=== PATIENT | female | born 1935 | race Caucasian/White ===

== ENCOUNTER 2016-03-24 15:03 | Emergency (ER) | payer MEDICARE, BC ==
[2016-03-24 15:22] VITALS: BP 109/60
[2016-03-24 15:31] LABS: Hematocrit 36 % (35-47); Mean Corpuscular HGB Conc 33 g/dl (31-36); Mean Corpuscular Hemoglobin 32 pg (27-31); Mean Corpuscular Volume 97 fL (80-97); Mean Platelet Volume 7 um3 (7.4-10.4); Red Blood Count 3.77 10^6/ul (4.0-5.4); Red Cell Distribution Width 14 % (10.5-15)
[2016-03-24 15:49] LABS: Troponin I 0.01 ng/mL (<0.04)
[2016-03-24 15:51] LABS: Albumin 3.7 g/dL (3.2-5.2); BUN/Creatinine Ratio 14.9 (8-20); EGFR African American 54.9 (>60); EGFR Non-African American 42.7 (>60); Globulin 2.8 g/dL (2-4); Potassium 3.8 mmol/L (3.5-5.0); Total Bilirubin 0.4 mg/dL (0.2-1.0); Total Protein 6.5 g/dL (6.4-8.9)
--- NOTE | 2016-03-24 15:51 | RAD ---
INDICATION: Chest pain. COMPARISON: Comparison is made with a prior chest x-ray study from May 01, 2015. TECHNIQUE: A portable view of the chest was obtained. FINDINGS: The heart appears within normal limits for this portable exam. There is a large retrocardiac density partially air-filled which is unchanged most consistent with a large hiatal hernia. The lungs are clear. No pleural effusion is seen. IMPRESSION: 1. CLEAR LUNGS. 2. LARGE HIATAL HERNIA, UNCHANGED.
[2016-03-24 16:17] LABS: TSH (Thyroid Stimulating Horm) 2.13 mcIU/mL (0.34-5.60)
[2016-03-24 18:51] LABS: Urine Bacteria Absent (Absent); Urine Bilirubin Negative (Negative); Urine Glucose Negative (Negative); Urine Nitrite Negative (Negative)
--- NOTE | 2016-03-24 19:27 | ED ---
Dona Bal Rebecca, scribed for Sloan Sparrow MD on 03/24/16 at 1520 . HPI Chest Pain - HPI Summary HPI Summary: Pt is an 80 y/o F BIBA who presents to ED c/o CP. Pain began suddenly at 1420 after eating lunch. Pain was throughout the upper, mid and lower sternum with radiation to the epigastric region of the abd. Pain lasted 1 hour and was characterized as tightness, currently completely resolved. Sx aggravated by nothing, alleviated by Tums. Additionally c/o belching and vomiting. All sx are resolved. Denies dizziness, diaphoresis. PMHx GERD - History of Current Complaint Time Seen by Provider: 03/24/16 15:11 Hx Obtained From: Patient Onset/Duration: Started Hours Ago Time of Onset: 14:20 Timing: Constant Initial Severity: Moderate Current Severity: None Pain Intensity: 0 Pain Scale Used: 0-10 Numeric Chest Pain Location: Mid Sternal, Upper Sternal, Lower Sternal Chest Pain Radiates: Yes Chest Pain Radiates To:: Epigastric Character: Tightness Aggravating Factor(s): Nothing Alleviating Factor(s): OTC Meds - Tums Associated Signs and Symptoms: Positive: Vomiting, Other: - Belching. Negative : Dizziness, Diaphoresis - Allergy/Home Medications Allergies/Adverse Reactions: Allergies Allergy/AdvReac Type Severity Reaction Status Date / Time Sulfamethoxazole Allergy Severe Hives Verified 03/14/15 10:20 w/Trimethoprim [From Septra] Montelukast [From [facility]] Allergy Unknown Unknown Verified 03/14/15 10:20 Reaction Details PMH/Surg Hx/FS Hx/Imm Hx Endocrine/Hematology History: Reports: Hx Thyroid Disease - HYPO Denies: Hx Diabetes Cardiovascular History: Reports: Hx Hypercholesterolemia Denies: Hx Hypertension, Hx Pacemaker/ICD Respiratory History: Reports: Hx Asthma Denies: Hx Chronic Obstructive Pulmonary Disease (COPD), Other Respiratory Problems/Disorders GI History: Reports: Hx Gastroesophageal Reflux Disease, Hx Hiatal Hernia, Hx Ulcer - gerd History: Reports: Hx Kidney Stones - X1 10 YRS AGO Denies: Hx Renal Disease Musculoskeletal History: Reports: Hx Arthritis - RA, Hx Osteoporosis Sensory History: Reports: Hx Contacts or Glasses - GLASSES, Hx Hearing Aid - LT EAR Opthamlomology History: Reports: Hx Contacts or Glasses - GLASSES Psychiatric History: Reports: Hx Depression Denies: Hx Panic Disorder - Cancer History Hx Chemotherapy: No Hx Radiation Therapy: No - Surgical History Surgery Procedure, Year, and Place: Sinus Surgery 2012. LEFT Wrist/thumb Surgery. Tonsillectomy 1944 Hx Anesthesia Reactions: No Infectious Disease History: Denies: Hx Clostridium Difficile, Hx Hepatitis, Hx Human Immunodeficiency Virus (HIV), Hx of Known/Suspected MRSA, Hx Shingles, Hx Tuberculosis - Family History Known Family History: Positive: Cardiac Disease - mother, Diabetes - Social History Alcohol Use: None Hx Substance Use: No Substance Use Type: Reports: None Hx Tobacco Use: No Smoking Status (MU): Never Smoked Tobacco Review of Systems Negative: Skin Diaphoresis Positive: Chest Pain - uper, mid and lower sternal with radiation into the epigastrum - resolved Positive: Vomiting - resolved, Other - Belching - resolved Neurological: Other - Denies dizziness All Other Systems Reviewed And Are Negative: Yes Physical Exam - Summary Physical Exam Summary: VITAL SIGNS: Reviewed. GENERAL: Patient is a well developed and nourished female who is lying comfortable in the stretcher. Patient is not in any acute respiratory distress. HEAD AND FACE: No signs of trauma. No ecchymosis, hematomas or skull depressions. No sinus tenderness. EYES: PERRLA, EOMI x 2, No injected conjunctiva, no nystagmus. EARS: Hearing grossly intact. Ear canals and tympanic membranes are within normal limits. MOUTH: Oropharynx within normal limits. NECK: Supple, trachea is midline, no adenopathy, no JVD, no carotid bruit, no c- spine tenderness, neck with full ROM. CHEST: Symmetric, no tenderness at palpation LUNGS: Clear to auscultation bilaterally. No wheezing or crackles. CVS: Regular rate and rhythm, S1 and S2 present, no murmurs or gallops appreciated. ABDOMEN: Soft, non-tender. No signs of distention. No rebound no guarding, and no masses palpated. Bowel sounds are normal. EXTREMITIES: FROM in all major joints, no edema, no cyanosis or clubbing. NEURO: Alert and oriented x 3. No acute neurological deficits. Speech is normal and follows commands. SKIN: Dry and warm Triage Information Reviewed: Yes Vital Signs On Initial Exam: Initial Vitals Temp Pulse Resp BP Pulse Ox 97.8 F 70 18 109/60 99 03/24/16 15:18 03/24/16 15:18 03/24/16 15:18 03/24/16 15:18 03/24/16 15:18 Vital Signs Reviewed: Yes Diagnostics - Vital Signs Vital Signs Temp Pulse Resp BP Pulse Ox 03/24/16 15:18 97.8 F 70 18 109/60 99 - Laboratory Lab Results: Lab Results 03/24/16 03/24/16 03/24/16 Range/Units 15:10 15:10 15:10 WBC 7.0 (3.5-10.8) 10^3/ul RBC 3.77 L (4.0-5.4) 10^6/ul Hgb 12.0 (12.0-16.0) g/dl Hct 36 (35-47) % MCV 97 (80-97) fL MCH 32 H (27-31) pg MCHC 33 (31-36) g/dl RDW 14 (10.5-15) % Plt Count 253 (150-450) 10^3/ul MPV 7 L (7.4-10.4) um3 Neut % (Auto) 75.8 (38-83) % Lymph % (Auto) 11.2 L (25-47) % Buchanan % (Auto) 5.9 (1-9) % Eos % (Auto) 5.9 (0-6) % Baso % (Auto) 1.2 (0-2) % Absolute Neuts (auto) 5.3 (1.5-7.7) 10^3/ul Absolute Lymphs (auto) 0.8 L (1.0-4.8) 10^3/ul Absolute Monos (auto) 0.4 (0-0.8) 10^3/ul Absolute Eos (auto) 0.4 (0-0.6) 10^3/ul Absolute Basos (auto) 0.1 (0-0.2) 10^3/ul Absolute Nucleated RBC 0 10^3/ul Nucleated RBC % 0 Sodium 136 (133-145) mmol/L Potassium 3.8 (3.5-5.0) mmol/L Chloride 103 (101-111) mmol/L Carbon Dioxide 25 (22-32) mmol/L Anion Gap 8 (2-11) mmol/L BUN 18 (6-24) mg/dL Creatinine 1.21 H (0.51-0.95) mg/dL Est GFR ( Amer) 54.9 (>60) Est GFR (Non-Af Amer) 42.7 (>60) BUN/Creatinine Ratio 14.9 (8-20) Glucose 135 H (70-100) mg/dL Lactic Acid 1.2 (0.5-2.0) mmol/L Calcium 10.0 (8.6-10.3) mg/dL Total Bilirubin 0.40 (0.2-1.0) mg/dL AST 27 (13-39) U/L ALT 11 (7-52) U/L Alkaline Phosphatase 64 (34-104) U/L CK-MB (CK-2) 3.1 (0.6-6.3) ng/mL Troponin I 0.01 (<0.04) ng/mL B-Natriuretic Peptide ( - 100) pg/mL Total Protein 6.5 (6.4-8.9) g/dL Albumin 3.7 (3.2-5.2) g/dL Globulin 2.8 (2-4) g/dL Albumin/Globulin Ratio 1.3 (1-3) TSH 2.13 (0.34-5.60) mcIU/mL 03/24/16 Range/Units 15:10 WBC (3.5-10.8) 10^3/ul RBC (4.0-5.4) 10^6/ul Hgb (12.0-16.0) g/dl Hct (35-47) % MCV (80-97) fL MCH (27-31) pg MCHC (31-36) g/dl RDW (10.5-15) % Plt Count (150-450) 10^3/ul MPV (7.4-10.4) um3 Neut % (Auto) (38-83) % Lymph % (Auto) (25-47) % Buchanan % (Auto) (1-9) % Eos % (Auto) (0-6) % Baso % (Auto) (0-2) % Absolute Neuts (auto) (1.5-7.7) 10^3/ul Absolute Lymphs (auto) (1.0-4.8) 10^3/ul Absolute Monos (auto) (0-0.8) 10^3/ul Absolute Eos (auto) (0-0.6) 10^3/ul Absolute Basos (auto) (0-0.2) 10^3/ul Absolute Nucleated RBC 10^3/ul Nucleated RBC % Sodium (133-145) mmol/L Potassium (3.5-5.0) mmol/L Chloride (101-111) mmol/L Carbon Dioxide (22-32) mmol/L Anion Gap (2-11) mmol/L BUN (6-24) mg/dL Creatinine (0.51-0.95) mg/dL Est GFR ( Amer) (>60) Est GFR (Non-Af Amer) (>60) BUN/Creatinine Ratio (8-20) Glucose (70-100) mg/dL Lactic Acid (0.5-2.0) mmol/L Calcium (8.6-10.3) mg/dL Total Bilirubin (0.2-1.0) mg/dL AST (13-39) U/L ALT (7-52) U/L Alkaline Phosphatase (34-104) U/L CK-MB (CK-2) (0.6-6.3) ng/mL Troponin I (<0.04) ng/mL B-Natriuretic Peptide 136 H ( - 100) pg/mL Total Protein (6.4-8.9) g/dL Albumin (3.2-5.2) g/dL Globulin (2-4) g/dL Albumin/Globulin Ratio (1-3) TSH (0.34-5.60) mcIU/mL Result Diagrams: 03/24/16 15:10 03/24/16 15:10 Lab Statement: Any lab studies that have been ordered have been reviewed, and results considered in the medical decision making process. - Radiology CXR Radiology Interpretation Completed By: Radiologist - 1. CLEAR LUNGS. 2. LARGE HIATAL HERNIA, UNCHANGED. - EKG 1507 Cardiac Rate: NL - 69 bpm EKG Rhythm: Sinus Rhythm EKG Interpretation: No ST elevation Chest Pain Course/Dx - Course Assessment/Plan: 80 y/o F who presents to ED with a CC of having epigastric and retro pain. Reports sx started after she ate macaroni and cheese with meatballs. Pt went home and took Tums. By the time she got to the ED, sx had resolved. Denies any SOB, N/V or diaphoresis. Blood results within normal limits , Troponin #1 is 0.01, Troponin #2 is 0.01. EKG shows no ST elevation. CXR also within normal limits. I believe sx are secondary to gastritis and GERD. There pt will be d/c to home with a follow up with PCP. I discussed all my findings and test results with the patient. Patient understands and agrees. Patient was instructed to return to the emergency room immediately if any of the symptoms return or worsens. Patient understands and agrees. Plan of care was discussed with the patient and patient understands and agrees with the plan of care. All questions were answered at patient satisfaction. There were no further complaints or concerns. Patient was instructed to follow up with primary care physician within 3 to 5 days. Patient is hemodynamically stable. Patient is alert and oriented x 3. No acute neurological deficits. - Diagnoses Provider Diagnoses: Gastritis, GERD (gastroesophageal reflux disease), Chest pain Discharge - Discharge Plan Condition: Stable Disposition: HOME The documentation as recorded by the Dona sabillon Rebecca accurately reflects the service I personally performed and the decisions made by me, Sloan Sparrow MD.
== END 2016-03-24 19:51 | disposition home or self-care (01) ==
LOC: ED 15:03
DX: K29.70 Gastritis, unspecified, without bleeding (principal); K21.9 Gastro-esophageal reflux disease without esophagitis; R07.9 Chest pain, unspecified; R11.0 Nausea; M18.0 Bilateral primary osteoarthritis of first carpometacarpal joints; M06.09 Rheumatoid arthritis without rheumatoid factor, multiple sites
CPT/HCPCS: 36415; 71010; 80053; 81003; 81015; 82306; 82553; 83605; 83880; 84443; 84484; 85025; 85652; 86140; 87086; 93005; 99282

== ENCOUNTER 2016-07-31 14:13 | Emergency (ER) | payer MEDICARE, BC ==
[2016-07-31 14:24] VITALS: BP 116/59
--- NOTE | 2016-07-31 14:47 | UC ---
HPI Wound/Suture Re-check - HPI Summary HPI Summary: Bumped L arm on corner of cabinet 3 days ago and sustained an L-shaped skin tear on L forearm. Re-approximated the skin and covered the area with a bandage and neosporin, is concerned about discoloration around injury and wonders if she is doing the right thing to take care of it. - History Of Current Complaint Chief Complaint: UCSkin Stated Complaint: WOUND ON ARM Time Seen by Provider: 07/31/16 14:34 Hx Obtained From: Patient Onset/Duration: Sudden Onset Severity: Mild - Allergies/Home Medications Allergies/Adverse Reactions: Allergies Allergy/AdvReac Type Severity Reaction Status Date / Time Sulfamethoxazole Allergy Severe Hives Verified 03/14/15 10:20 w/Trimethoprim [From Septra] Montelukast [From Singulair] Allergy Unknown Unknown Verified 03/14/15 10:20 Reaction Details PMH/Surg Hx/FS Hx/Imm Hx Endocrine History Of: Reports: Thyroid Disease - HYPO Denies: Diabetes Cardiovascular History Of: Denies: Cardiac Disorders, Hypertension, Pacemaker/ICD Respiratory History Of: Reports: Asthma, Bronchitis Denies: COPD GI/ History Of: Reports: Ulcer - gerd, Kidney Stones - X1 10 YRS AGO Denies: Renal Disease Psychological History Of: Reports: Depression Cancer History Of: Denies: Breast Cancer - Surgical History Surgical History: Yes Surgery Procedure, Year, and Place: Sinus Surgery 2012. LEFT Wrist/thumb Surgery. Tonsillectomy 1944 - Family History Known Family History: Positive: Cardiac Disease - mother, Diabetes - Social History Occupation: Retired Lives: Alone Alcohol Use: None Substance Use Type: None Smoking Status (MU): Never Smoked Tobacco Review of Systems Constitutional: Negative Skin: Other - skin tear Eyes: Negative ENT: Negative Respiratory: Negative Cardiovascular: Negative Gastrointestinal: Negative Genitourinary: Negative Motor: Negative Neurovascular: Negative Musculoskeletal: Negative Neurological: Negative Psychological: Negative All Other Systems Reviewed And Are Negative: Yes Physical Exam Triage Information Reviewed: Yes Appearance: Well-Appearing, No Pain Distress, Well-Nourished Vital Signs: Initial Vital Signs Temp 98.5 F 07/31/16 14:19 Pulse 81 07/31/16 14:19 Resp 16 07/31/16 14:19 BP 116/59 07/31/16 14:19 Pulse Ox 100 07/31/16 14:19 Vital Signs Reviewed: Yes Eye Exam: Normal Eyes: Positive: Conjunctiva Clear ENT Exam: Normal ENT: Positive: Normal ENT inspection, Hearing grossly normal, Pharynx normal, TMs normal Dental Exam: Normal Neck exam: Normal Neck: Positive: Supple, Nontender, No Lymphadenopathy Respiratory Exam: Normal Respiratory: Positive: Chest non-tender, Lungs clear, Normal breath sounds, No respiratory distress, No accessory muscle use Cardiovascular Exam: Normal Cardiovascular: Positive: RRR, No Murmur Musculoskeletal Exam: Normal Musculoskeletal: Positive: Strength Intact, ROM Intact Neurological Exam: Normal Neurological: Positive: Alert Psychological Exam: Normal Skin Exam: Other - skin tear L forearm, skin somewhat approximated with 2mm - 6mm wound edges. Large irreg ecchymotic nonblanching area around it Course/Dx - Differential Dx - Laceration/Wound Provider Diagnoses: L forearm contusion. L forearm skin tear - no repair Discharge - Discharge Plan Condition: Stable Disposition: HOME Patient Education Materials: Skin Tear (ED) Referrals: Sloan Soto MD [Primary Care Provider] - Additional Instructions: Keep the wound covered and bandaged until it is well-sealed and no longer tender. If you suspect infection or other problems, return here right away.
== END 2016-07-31 14:50 | disposition home or self-care (01) ==
LOC: UCEAST 14:13
DX: S51.812A Laceration without foreign body of left forearm, initial encounter (principal); S50.12XA Contusion of left forearm, initial encounter; E03.9 Hypothyroidism, unspecified; F41.9 Anxiety disorder, unspecified; K21.9 Gastro-esophageal reflux disease without esophagitis; W22.09XA Striking against other stationary object, initial encounter; Y92.9 Unspecified place or not applicable; Z88.1 Allergy status to other antibiotic agents; Z88.8 Allergy status to other drugs, medicaments and biological substances
CPT/HCPCS: 99211; G0463

== ENCOUNTER 2017-02-20 07:52 | Day surgery (SDC) | payer MEDICARE, OTHER ==
--- NOTE | 2017-02-11 16:25 | HP ---
CC: Dr. Soto* HISTORY AND PHYSICAL: DATE OF PLANNED ADMISSION AND SURGERY: 02/20/17 HISTORY OF PRESENT ILLNESS: Mrs. Clemens is an 81-year-old white female who is admitted with a right renal calculus for cystoscopy, placement of right ureteral stent and shockwave lithotripsy of right renal calculus. Mrs. Clemens was noted by Dr. Soto to have asymptomatic microscopic hematuria. It was not associated with any renal or any voiding symptoms. She did not have any episodes of gross hematuria or renal colic. She was worked up in the office for the microscopic hematuria. Renal ultrasound and KUB both showed a 1.5 cm triangular radio-opaque calculus in the right renal pelvis. There was mild hydronephrosis, but no renal masses. Office cystoscopy showed no bladder lesions. Because of the above findings, the patient was admitted for the above procedure. PAST MEDICAL HISTORY AND SYSTEM REVIEW: The patient has history of rheumatoid arthritis, hypothyroidism, asthma. MEDICATIONS: She is maintained on the following medications: 1. Advair 1 puff twice a day. 2. Methotrexate 6 tablets of 2.5 mg each once a week. 3. Sertraline 75 mg daily. 4. Pravastatin 10 mg daily. 5. Levothyroxine 100 mcg daily. 6. Hydroxychloroquine 200 mg tablets twice a day. 7. Potassium 16 mEq daily. 8. Folic acid 1 mg daily. 9. Famotidine 40 mg daily. 10. Vitamin D3 1000 units daily. 11. Aspirin 81 mg daily. ALLERGIES: She reports being allergic to SULFA drug and to SINGULAIR. REVIEW OF SYSTEMS: She denies any cardiac disease or symptoms. PHYSICAL EXAMINATION GENERAL: Pleasant, healthy looking white female, who looks good for her age. VITAL SIGNS: Blood pressure 120/70, pulse of 70. LUNGS: Clear. HEART: Regular and rhythmic. No murmurs. ABDOMEN: Soft. No masses, no tenderness, and no CVA tenderness. IMPRESSION: 1. Microscopic hematuria secondary to a 1.5 cm minimally obstructing right renal calculus. 2. Rheumatoid arthritis, on treatment. PLAN: I discussed the option of management of her right renal calculus. The options included shockwave lithotripsy with a stent placement. She will likely require ureteroscopy afterwards if the stone fragments are not passed spontaneously. The other option is to perform percutaneous lithotripsy and that will give her the best chance to be stone free. The patient wants to avoid PCNL if possible and wants to proceed with the stent placement and shockwave lithotripsy, understanding, she will likely require another endoscopic procedure. I discussed the above plans in detail with the patient. Some of the potential complications including gross hematuria, postoperative renal colic. All her questions were answered. She was asked to stop the aspirin and the methotrexate for one week before the procedure. All her questions were answered. [id number]/[facility] #: [id number] AMOR
[~2017-02-20 07:52] MED LIST: Buffered Lidocaine 0.9% SYRIN* 5 ML/SYR SYRINGE INTRADERM ONE
[2017-02-20] MEDS ORDERED: cefTRIAXone(*) 2 GM ADDV.VIAL IVPB ONE (08:30)
[2017-02-20] MEDS ORDERED: Buffered Lidocaine 0.9% SYRIN* 5 ML/SYR SYRINGE ONE (08:30)
[2017-02-20] MEDS ORDERED: fentaNYL* 50 MCG/ML 2 ML VIAL (100 MCG VIAL) ONE (08:46)
[2017-02-20] MEDS ORDERED: Midazolam* 1 MG/ML 2 ML VIAL (2 MG) ONE (08:46)
[2017-02-20] MEDS ORDERED: Lidocaine 2% PF * 5 ML VIAL ONE (09:35)
[2017-02-20] MEDS ORDERED: Propofol* 10 MG/ML 20 ML BTL IV PUSH ONE (09:49)
[2017-02-20] MEDS ORDERED: Dexamethasone IV* 4 MG/ML 1 ML (4 MG) ONE (09:49)
[2017-02-20] MEDS ORDERED: Ondansetron INJ* 2 MG/ML VIAL ONE (09:49)
[2017-02-20] MEDS ORDERED: PROCHLORPERAZINE INJ 5 MG/ML 2 ML VIAL IV PRN (09:55)
[2017-02-20] MEDS ORDERED: Ondansetron INJ* 2 MG/ML VIAL IV PRN (09:55)
[2017-02-20] MEDS ORDERED: fentaNYL* 50 MCG/ML 2 ML VIAL (100 MCG VIAL) IV PRN (09:55)
[2017-02-20] MEDS ORDERED: DiMENhydriNATE IV* 50 MG/ML VIAL IV PUSH PRN (09:55)
[2017-02-20] MEDS ORDERED: Acetaminophen TAB* 325 MG PO PRN (09:55)
[2017-02-20] MEDS ORDERED: EPHEDrine (Pressors)* 50 MG/ML VIAL ONE (10:02)
[2017-02-20 11:51] VITALS: BP 101/88
--- NOTE | 2017-02-21 01:08 | OP ---
CC: Dr. Stoo * DATE OF OPERATION: 02/20/17 - [facility] DATE OF : 33 SURGEON: Dr. Lagos. ANESTHESIOLOGIST: Dr. Kale Marrero. ANESTHESIA: General. PRE-OP DIAGNOSIS: Right renal calculus (1.5 cm, renal pelvis). POST-OP DIAGNOSIS: Right renal calculus (1.5 cm, renal pelvis). OPERATIVE PROCEDURE: 1. Shockwave lithotripsy of right renal calculus. 2. Cystoscopy and placement of right ureteral stent (6 Kyrgyz). INDICATIONS: Mrs. Clemens was noted on routine analysis to have asymptomatic microscopic hematuria. She did not have any renal symptoms. Workup with renal ultrasound, KUB, and cystoscopy showed a 1.5 cm triangular radiopaque calculus in the right renal pelvis. Cystoscopy was negative. Because of the above history and findings and after discussing the various options of management of her stone, she decided to proceed with the above procedure. Fluoroscopy showed the radiopaque calculus in the area of the right renal pelvis. Cystoscopy showed normal bladder mucosa. Some blood was seen coming from the right orifice, but that was after the shockwave lithotripsy was performed. Right retrograde pyelography showed mild to moderate right hydronephrosis. DESCRIPTION OF PROCEDURE: After successful general anesthesia, the patient was placed in the supine position on the shockwave lithotripsy table. The right renal calculus was visualized in both the PA and oblique x-ray views and the position of the generator and of the patient were adjusted to have this stone in the focus of the shockwaves. A total of 2,400 shocks were then delivered at the rate of 90 shocks/mn. A 2 minutes break was taken after the initial 300 shocks. The proper positioning and fragmentation of the stones were monitored periodically. At the completion of the treatment, there seemed to be only partial fragmentation of the stone with some fragments migrating into the UPJ. The bulk of the stone, however did not seem to have fragmented. The patient was then placed in the lithotomy position and was prepped and draped for a cystoscopy. Cystoscopy was performed and the bladder was inspected. A flexible tip guidewire was then introduced into the right ureter and positioned in renal pelvis above the stone. Retrograde pyelography was performed. A size 6 Kyrgyz stent was then placed with the proximal end coiling in the renal pelvis and the distal end coiling inside the bladder. There was good drainage of contrast from the kidney and no extravasation. The patient tolerated the procedure well and left the operating room in good condition. PLAN: The plan is to see the patient back in the office next week with a KUB. Decision will be made regarding the need for additional treatment of the stone. [id number]/[facility] #: [id number] MTDD
== END 2017-02-20 12:21 | disposition home or self-care (01) ==
LOC: OR 07:52
PROVIDERS: ATTEND Urology
DX: N13.2 Hydronephrosis with renal and ureteral calculous obstruction (principal); R31.29 Other microscopic hematuria; E03.9 Hypothyroidism, unspecified; M06.9 Rheumatoid arthritis, unspecified; Z79.899 Other long term (current) drug therapy; J45.909 Unspecified asthma, uncomplicated
CPT/HCPCS: C1876; J0696; J1100; J2250; J2405; J2704; J3010

== ENCOUNTER 2017-03-10 08:15 | Day surgery (SDC) | payer MEDICARE, OTHER ==
--- NOTE | 2017-02-28 07:59 | HP ---
CC: Dr. Soto * HISTORY AND PHYSICAL: DATE OF PLANNED ADMISSION AND SURGERY: 03/10/17 HISTORY OF PRESENT ILLNESS: Mrs. Clemens is an 81-year-old white female who is admitted with a right renal calculus, status post shockwave lithotripsy and placement of right ureteral stent for cystoscopy, right ureteroscopy, laser lithotripsy and right ureteral stent exchange. Mrs. Clemens was worked up for asymptomatic microscopic hematuria and was noted to have a 1.5 cm calculus in the right renal pelvis. There was no associated hydronephrosis and she was asymptomatic. The patient was given the option of undergoing shockwave lithotripsy followed by endoscopic stone fragments extraction versus performing PCNL. Patient elected to go ahead with the first option and she underwent shockwave lithotripsy and placement of right ureteral stent on 02/20/17. Followup KUB showed partial fragmentation of the stone, but the fragments were all still located in the renal pelvis. The stent was in good position on the KUB. The patient is now admitted for right ureteroscopy, laser lithotripsy and extraction of the stone fragments with a stent exchange. PAST MEDICAL HISTORY AND SYSTEM REVIEW: Unchanged compared to the previous admission. She has rheumatoid arthritis, hypothyroidism, and asthma. MEDICATIONS: She is maintained on: 1. Advair 1 puff twice a day. 2. Methotrexate 6 tablets of 2.5 mg each once a week. 3. Sertraline 75 mg daily. 4. Pravastatin 10 mg daily. 5. Levothyroxine 100 mcg daily. 6. Hydroxychloroquine 200 mg twice a day. 7. Potassium supplement. 8. Folic acid 1 mg daily. 9. Famotidine 40 mg daily for GERD. 10. Vitamin D3 1000 units daily. 11. One baby aspirin per day. ALLERGIES: She is allergic to SULFA and SINGULAIR. PHYSICAL EXAMINATION GENERAL: Pleasant and healthy white female who looks good for her age. VITAL SIGNS: Blood pressure 120/70. LUNGS: Clear. HEART: Regular and rhythmic. No murmurs. ABDOMEN: Soft. No masses, no tenderness. Mild right CVA tenderness. IMPRESSION: A 1.5 cm right renal calculus, status post shockwave lithotripsy and right ureteral stent placement with partial fragmentation of the stone. PLAN: For cystoscopy, right ureteroscopy, laser lithotripsy, and right ureteral stent exchange with extraction of the broken stone fragments. I discussed the above plans with the patient and her questions were answered. [id number]/[facility] #: [id number] AMOR
[~2017-03-10 08:15] MED LIST changes: +Dexamethasone IV* 4 MG/ML 1 ML (4 MG) IV SLOW PU ONE; +Famotidine IV* 10 MG/ML 2 ML (20 mg) IV ONE
[2017-03-10] MEDS ORDERED: cefTRIAXone(*) 1 GM in D5W 50 ML BAG* 50 ML IVPB ONE (09:00)
[2017-03-10] MEDS ORDERED: Famotidine IV* 10 MG/ML 2 ML (20 mg) ONE (09:01)
[2017-03-10] MEDS ORDERED: Dexamethasone IV* 4 MG/ML 1 ML (4 MG) ONE (09:02)
[2017-03-10] MEDS ORDERED: fentaNYL* 50 MCG/ML 2 ML VIAL (100 MCG VIAL) ONE (09:07)
[2017-03-10] MEDS ORDERED: Propofol* 10 MG/ML 20 ML BTL IV PUSH ONE ×2 (09:07→10:15)
[2017-03-10] MEDS ORDERED: Iohexol 180 (CONTRAST) 10 ML SDV IV ONE (09:40)
[2017-03-10] MEDS ORDERED: EPHEDrine (Pressors)* 50 MG/ML VIAL ONE (10:15)
[2017-03-10] MEDS ORDERED: Ketorolac INJ* 30 MG/ML 1 ML VIAL ONE ×2 (10:15→10:44)
[2017-03-10] MEDS ORDERED: Ondansetron INJ* 2 MG/ML VIAL ONE ×2 (10:15→10:44)
[2017-03-10] MEDS ORDERED: DiMENhydriNATE IV* 50 MG/ML VIAL IV PUSH PRN (11:10)
[2017-03-10] MEDS ORDERED: fentaNYL* 50 MCG/ML 2 ML VIAL (100 MCG VIAL) IV PRN (11:10)
--- NOTE | 2017-03-10 12:01 | RAD ---
INDICATION: Right ureteral stent exchange COMPARISONS: February 27, 2017 TECHNIQUE: Fluoroscopy was provided for a retrograde pyelogram and stent placement. Total fluoroscopy time is: 15 seconds FINDINGS: Spot images demonstrate contrast and a stent within the renal collecting system. IMPRESSION: FLUOROSCOPY WAS PROVIDED FOR A RETROGRADE PYELOGRAM AND STENT PLACEMENT CPT II Codes: 6045F
[2017-03-10 12:36] VITALS: BP 120/58
--- NOTE | 2017-03-10 13:24 | RAD ---
INDICATION: Postoperative study status post right ureteral stent exchange. COMPARISON: Comparison is made with a prior KUB from February 27, 2017 and a prior retrograde pyelogram from March 10, 2017. TECHNIQUE: Frontal supine films of the abdomen were obtained. FINDINGS: The small bowel and colon appear nondistended. There is a ureteral stent on the right side which demonstrates normal course. There are multiple calcifications which project over the right renal region most consistent with renal calculi as previously noted. IMPRESSION: RIGHT-SIDED NEPHROLITHIASIS STATUS POST RIGHT URETERAL STENT EXCHANGE.
--- NOTE | 2017-03-10 22:03 | OP ---
CC: Dr. Soto OPERATIVE REPORT: DATE OF OPERATION: 03/10/17 DATE OF : 33 SURGEON: Steffen Lagos MD ANESTHESIOLOGIST: Dr. Neri Zacarias. ANESTHESIA: General. PRE-OP DIAGNOSES: 1. Right renal calculus. 2. Status post placement, right ureteral stent. POST-OP DIAGNOSES: 1. Right renal calculus. 2. Status post placement, right ureteral stent. OPERATIVE PROCEDURE: 1. Cystoscopy. 2. Right ureteroscopy and pyeloscopy. 3. Laser lithotripsy of 2 right calculi (1 cm and 1.3 cm). 4. Right retrograde pyelography and right ureteral stent exchange. INDICATION FOR PROCEDURE: Mrs. Clemens is an 81-year-old white female, who was noted to have a 1.5 cm calculus in the right renal pelvis. She had placement of right ureteral spent and shockwave lithotripsy on 02/20/17. Postoperative KUB showed only partial fragmentation of the stone. There was still a 1.3 cm calculus noted in the renal pelvis inside the loop of the stent. Because of that finding, the above procedure was advised and accepted. PATHOLOGY AT CYSTOSCOPY: The distal limb of the stent was incoming from the right ureteral orifice. Upon right ureteroscopy, there were no calculi noted in the ureter. There was a 1.2 cm calculus in the posterior aspect of the renal pelvis. There were also 1 cm stone fragments in the lower pole calyx of the right kidney. DESCRIPTION OF PROCEDURE: After successful general anesthesia, the patient was placed in the lithotomy position and was prepped and draped for a cystoscopy. Cystoscopy was performed. The right ureteral stent was then removed over a guidewire. A 6.5 semirigid ureteroscope was then introduced into the right ureter and was passed without difficulty into the renal pelvis. The calculus could not be seen with the semirigid ureteroscope because of its posterior location in the renal pelvis. The semirigid ureteroscope was then removed. A 10-12 Albanian access sheath was fed on top of the guidewire and positioned in the right ureter. The guidewire was removed. The flexible ureteroscope was then introduced through the access sheath and passed without difficulty all the way to inside the renal pelvis. The calculus in the renal pelvis was visualized. Using 200 micron and then the 320 micron laser fibers, the stone was broken into multiple fragments. Some of the fragments migrated into the upper pole calyces. They were followed there with the ureteroscope and extensive lasering and dusting of the stone fragments was then performed, reducing them to small fragments. The lower pole calyx was then visualized and the cluster of stone was noted there. There were also fragmented with the laser. The fragments of the stones were felt to be too small to basket, and they should pass spontaneously. Fluoroscopy showed the shadow of the stone fragments in an upper pole calyx and the lower pole calyx. The ureteroscope was then removed. The guidewire was introduced through the access sheath, which was removed keeping the guidewire in place. The cystoscope was then introduced inside the bladder over the guidewire. Retrograde pyelography was performed showing no extravasation. A size 8-Albanian stent was then placed with the proximal end coiling in the renal pelvis and the distal end coiling inside the bladder. There was good drainage of contrast from the kidney and no extravasation. The patient tolerated the procedure well and left the operating room in good condition. The plan is to leave the stent in place for 2 weeks. It will be removed in the office under local anesthesia as I expect the stone fragments to passes spontaneously afterwards. [id number]/[facility] #: [id number] AMOR
== END 2017-03-10 12:56 | disposition home or self-care (01) ==
LOC: OR 08:15
PROVIDERS: ATTEND Urology
DX: N20.0 Calculus of kidney (principal); R31.29 Other microscopic hematuria; M06.9 Rheumatoid arthritis, unspecified; E03.9 Hypothyroidism, unspecified; J45.909 Unspecified asthma, uncomplicated; R01.0 Benign and innocent cardiac murmurs; F32.9 Major depressive disorder, single episode, unspecified
CPT/HCPCS: 74000; 74420; C2625; J0696; J1100; J1885; J2405; J2704; J3010

== ENCOUNTER 2018-09-09 03:32 | Day surgery (SDC) | payer MEDICARE, OTHER ==
[2018-09-09] MEDS ORDERED: NS 0.9% 1000 ML** 2,000 ML IV ONE (03:49)
[2018-09-09] MEDS ORDERED: Morphine 4 MG/ML VIAL (1 ml) 4 MG/ML VIAL IV ONE (03:49)
[2018-09-09] MEDS ORDERED: Ondansetron INJ* 2 MG/ML VIAL IV ONE (03:49)
[2018-09-09 04:01] LABS: ABS Basophils 0.1 10^3/ul (0-0.2); ABS Eosinophils 0.6 10^3/ul (0-0.6); ABS Lymphocytes 0.9 10^3/ul (1.0-4.8); ABS Monocytes 0.6 10^3/ul (0-0.8); ABS Neutrophils 4.5 10^3/ul (1.5-7.7); Eosinophil % 8.7 %; Hematocrit 34 % (35-47); Hemoglobin 11.4 g/dL (12.0-16.0); Lymphocyte % 12.8 %; Mean Corpuscular HGB Conc 34 g/dL (31-36); Mean Corpuscular Hemoglobin 31 pg (27-31); Mean Corpuscular Volume 91 fL (80-97); Mean Platelet Volume 6.8 fL (7.4-10.4); Platelet Count 211 10^3/uL (150-450); Red Blood Count 3.74 10^6 /uL (3.70-4.87); Red Cell Distribution Width 16 % (10-15); White Blood Count 6.7 10^3/uL (3.5-10.8)
[2018-09-09 04:17] LABS: Albumin 3.7 g/dL (3.2-5.2); Albumin/Globulin Ratio 1.4 (1-3); Calcium 9.5 mg/dL (8.6-10.3); EGFR African American 64.1 (>60); Globulin 2.7 g/dL (2-4); Potassium 3.1 mmol/L (3.5-5.0); Total Bilirubin 0.4 mg/dL (0.2-1.0); Total Protein 6.4 g/dL (6.4-8.9)
--- OUTSIDE RECORDS SUMMARY | 2018-09-09 04:35 | XMS REPORT | Continuity of Care Document ---
:1935 External Reference #:[id number] Author Name BETTYE Saldaña Address [address] [place] [address] Care Team Providers Name Role Phone Nena Adams M.D. 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 Primary Care Physician Unavailable Payers Date Identification Numbers Payment Provider Subscriber Policy Number: [id number] Medicare-National GVT.Sys Veena Lealsen PayID: [id number] [address] [place] [address] Effective: 2016 Policy Number: [id number] [employer] Veena Clemens Group Number: [id number] [address] Group Name: T[place] [address] PayID: [id number] Problems Active Problems Provider Date Mild persistent asthma Sj Mattson M.D. Onset: 05/18/2018 Uncomplicated moderate persistent asthma Nena Adams M.D. Onset: 07/20 Moderate persistent asthma with (acute) YVETTE NatarajanP-C Onset: 04/27/2015 exacerbation Acute upper respiratory infection, THALIA Natarajan-Fany Onset: 04/23/2015 unspecified Asthma Nena Adams M.D. Onset: 01/09/2015 Allergic rhinitis due to animals Nena Adams M.D. Onset: 01/09/2015 Nasal polyp Nena Adams M.D. Onset: 01/06/2012 Allergic rhinitis Nena Adams M.D. Onset: 01/06/2012 Allergic rhinitis due to pollen Nena Adams M.D. Onset: 01/06/2012 Allergic asthma without status asthmaticus Nena Adams M.D. 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 mcg/Act Aerosol Advair Diskus inhale 1 puff 180units Sj Mattson, 01/17/2014 by mouth two M.D. 250-50mcg/Dose Aerosol times daily 90 days supply Flunisolide 2 sprays in 3units J30.1 Sj Mattson, 08/02/2013 25mcg/Act each nostril M.D. (0.025%) Solution 1-2 times daily Methotrexate Unknown 2.5mg Tablets Klor-Con 8 Unknown 8Meq Tablets ER Folic Acid Unknown 1mg Tablets Levothyroxine Sodium Unknown 100mcg Tablets Cranberry Unknown 1480 Tablets Aspirin Unknown 81mg Chewtabs Claritin take one tablet 30tabs Unknown 10mg Tablets daily prn D3 Adult 1 tab daily. Unknown 1000Unit Chewtabs Citracal +D3 1 tab daily. Unknown 784-357-158aa-mg-Unit Chewtabs Cod Liver Oil 1 cap daily. Unknown Capsules Diclofenac Sodium Unknown 1% Gel Omeprazole Take 1 Capsule Unknown 20mg Capsules By Mouth Every DR Day For 6 To 8 Weeks And as Needed After Medications Administered in Office Medication SIG Qnty Indications Ordering Provider Date Injection Nena Adams M.D. 10/04/2017 Injection Injection Allergy Injection 10/04/2017 Injection Injection Allergy Injection 09/13/2017 Injection Injection Allergy Injection 08/30/2017 Injection Injection Allergy Injection 08/16/2017 Injection Injection Allergy Injection 08/02/2017 Injection Injection Allergy Injection 07/19/2017 Injection Injection Allergy Injection 07/05/2017 Injection Injection Allergy Injection 06/07/2017 Injection Injection Allergy Injection 05/10/2017 Injection Injection Allergy Injection 04/12/2017 Injection Injection Allergy Injection 03/15/2017 Injection Injection Allergy Injection 02/15/2017 Injection Injection Allergy Injection 01/12/2017 Injection Injection Allergy Injection 12/28/2016 Injection Injection Allergy Injection 12/15/2016 Injection Injection Allergy Injection 12/01/2016 Injection Injection Allergy Injection 11/17/2016 Injection Injection Nena Adams M.D. 11/03/2016 Injection Injection Allergy Injection 11/03/2016 Injection Injection Allergy Injection 10/20/2016 Injection Injection Allergy Injection 10/06/2016 Injection Injection Allergy Injection 09/29/2016 Injection Injection Allergy Injection 09/15/2016 Injection Injection Nena Adams M.D. 09/01/2016 Injection Injection Allergy Injection 09/01/2016 Injection Injection Allergy Injection 08/25/2016 Injection Injection Allergy Injection 08/11/2016 Injection Injection Allergy Injection 07/28/2016 Injection Injection Allergy Injection 07/14/2016 Injection Injection Allergy Injection 06/30/2016 Injection Injection Allergy Injection 06/16/2016 Injection Injection Allergy Injection 05/18/2016 Injection Injection Allergy Injection 04/20/2016 Injection Injection Allergy Injection 03/24/2016 Injection Injection Allergy Injection 02/25/2016 Injection Injection Allergy Injection 01/28/2016 Injection Injection Allergy Injection 12/31/2015 Injection Injection Allergy Injection 12/17/2015 Injection Injection Allergy Injection 12/04/2015 Injection Injection Allergy Injection 11/05/2015 Injection Injection Allergy Injection 10/26/2015 Injection Injection Allergy Injection 10/08/2015 Injection Injection Allergy Injection 09/23/2015 Injection Injection Allergy Injection 09/09/2015 Injection Injection Allergy Injection 08/26/2015 Injection Injection Allergy Injection 08/13/2015 Injection Injection Allergy Injection 07/30/2015 Injection Injection Allergy Injection 07/15/2015 Injection Injection Allergy Injection 07/01/2015 Injection Injection Allergy Injection 06/18/2015 Injection Injection Allergy Injection 05/27/2015 Injection Injection Allergy Injection 05/13/2015 Injection Injection Allergy Injection 04/03/2015 Injection Injection Allergy Injection 03/04/2015 Injection Injection Allergy Injection 02/04/2015 Injection Injection Allergy Injection 01/14/2015 Injection Injection Allergy Injection 12/31/2014 Injection Injection Allergy Injection 12/15/2014 Injection Injection Allergy Injection 12/01/2014 Injection Injection Allergy Injection 11/17/2014 Injection Injection Allergy Injection 11/03/2014 Injection Injection Allergy Injection 10/20/2014 Injection Injection Allergy Injection 10/06/2014 Injection Injection Allergy Injection 09/22/2014 Injection Injection Allergy Injection 09/08/2014 Injection Injection Allergy Injection 08/25/2014 Injection Injection Allergy Injection 08/08/2014 Injection Injection Allergy Injection 07/28/2014 Injection Injection Allergy Injection 07/14/2014 Injection Injection Allergy Injection 06/30/2014 Injection Injection Allergy Injection 06/02/2014 Injection Injection Allergy Injection 05/05/2014 Injection Injection Allergy Injection 04/07/2014 Injection Injection Allergy Injection 03/10/2014 Injection Injection Allergy Injection 02/10/2014 Injection Injection Allergy Injection 01/22/2014 Injection Injection Allergy Injection 01/06/2014 Injection Injection Allergy Injection 12/23/2013 Injection Injection Allergy Injection 12/02/2013 Injection Injection Allergy Injection 11/20/2013 Injection Injection Allergy Injection 2013 Injection Injection Allergy Injection 10/21/2013 Injection Injection Allergy Injection 10/07/2013 Injection Injection Allergy Injection 09/23/2013 Injection Injection Allergy Injection 09/09/2013 Injection Injection Allergy Injection 08/19/2013 Injection Injection Allergy Injection 08/05/2013 Injection Injection Allergy Injection 07/22/2013 Injection Injection Allergy Injection 07/08/2013 Injection Injection Allergy Injection 06/24/2013 Injection Injection Allergy Injection 06/17/2013 Injection Injection Allergy Injection 06/14/2013 Injection Injection Allergy Injection 06/03/2013 Injection Injection Allergy Injection 05/27/2013 Injection Injection Allergy Injection 05/22/2013 Injection Injection Allergy Injection 05/13/2013 Injection Injection Allergy Injection 05/06/2013 Injection Injection Allergy Injection 04/29/2013 Injection Injection Allergy Injection 04/22/2013 Injection Injection Allergy Injection 04/15/2013 Injection Injection Allergy Injection 04/08/2013 Injection Injection Allergy Injection 04/01/2013 Injection Injection Allergy Injection 03/25/2013 Injection Injection Allergy Injection 03/11/2013 Injection Injection Allergy Injection 03/04/2013 Injection Injection Allergy Injection 02/27/2013 Injection Injection Allergy Injection 02/06/2013 Injection Injection Allergy Injection 01/30/2013 Injection Injection Allergy Injection 01/23/2013 Injection Injection Allergy Injection 01/16/2013 Injection Injection Allergy Injection 01/09/2013 Injection Injection Allergy Injection 01/02/2013 Injection Injection Allergy Injection 12/26/2012 Injection Injection Allergy Injection 12/17/2012 Injection Injection Allergy Injection 12/12/2012 Injection Injection Allergy Injection 11/28/2012 Injection Injection Allergy Injection 11/21/2012 Injection Injection Zack Ana Schilling 10/09/2009 Injection Injection Zack Ana Schilling 09/28/2009 Injection Injection Zack Ana Schilling 09/14/2009 Injection Injection Zack TonieAna slade 09/02/2009 Injection Injection Zack TonieAna slade 08/19/2009 Injection Injection Zack TnoieAna slade 08/05/2009 Injection Injection Zack TonieAna slade 07/20/2009 Injection Injection Zack TonieAna slade 07/06/2009 Injection Injection Zack TonieAna slade 06/22/2009 Injection Injection Zack Ana Schilling 06/08/2009 Injection Injection Zack Ana Schilling 05/11/2009 Injection Injection Blayne Morgan M.D. 04/13/2009 Injection Injection Zack TonieAna slade 03/18/2009 Injection Injection Zack TonieAna slade 02/16/2009 Injection Injection Zack Tonie, Ana 01/19/2009 Injection Injection Zack Tonie, Ana 12/22/2008 Injection Injection Zack TonieAna 12/08/2008 Injection Injection Zack TonieAna slade 11/26/2008 Injection Injection Zack TonieAna slade 11/10/2008 Injection Injection Zack Tonei, M.DJeannette 10/27/2008 Injection Injection Zack Tonie, M.DJeannette 10/13/2008 Injection Injection Zack Tonie, M.DJeannette 09/29/2008 Injection Injection Zack Tonie, M.DJeannette 09/01/2008 Injection Injection Zack Tonie, M.DJeannette 08/20/2008 Injection Injection Zack Tonie, M.DJeannette 07/28/2008 Injection Injection Zack Tonie, M.DJeannette 07/14/2008 Injection Injection Zack Tonie, M.DJeannette 06/30/2008 Injection Injection Zack Tonie, M.DJeannette 06/02/2008 Injection Injection Zack Tonie, M.DJeannette 04/28/2008 Injection Injection Zack Tonie, M.DJeannette 03/31/2008 Injection Injection Zack Tonie, M.DJeannette 03/03/2008 Injection Injection Zack Tonie, Mac.DJeannette 02/06/2008 Injection Injection Zack Tonie, Mac.DJeannette 01/07/2008 Injection Injection Zack Tonie, M.DJeannette 12/24/2007 Injection Injection Zack Tonie, M.DJeannette 12/10/2007 Injection Injection Zack Tonie, M.DJeannette 11/26/2007 Injection Injection Zack Tonie, M.DJeannette 11/12/2007 Injection Injection Zack Tonie, M.DJeannette 10/29/2007 Injection Injection Zack Tonie, M.DJeannette 10/19/2007 Injection Injection Zack Tonie, M.DJeannette 10/01/2007 Injection Injection Zack Tonie, M.DJeannette 09/17/2007 Injection Injection Zack Tonie, M.DJeannette 09/05/2007 Injection Injection Zack Tonie, M.DJeannette 08/20/2007 Injection Injection Zack Tonie, M.DJeannette 08/06/2007 Injection Injection Zack Tonie, M.DJeannette 07/23/2007 Injection Injection Zack Tonie, M.DJeannette 06/25/2007 Injection Injection Zack Tonie, M.DJeannette 05/28/2007 Injection Injection Zack Tonie, M.DJeannette 05/07/2007 Injection Injection Zack Tonie, M.DJeannette 04/11/2007 Injection Injection Zack Tonie, M.DJeannette 03/14/2007 Injection Injection Zack Tonie, M.DJeannette 02/12/2007 Injection Injection Zack Tonie, M.DJeannette 01/15/2007 Injection Injection Zack Tonie, M.DJeannette 12/18/2006 Injection Injection Zack Tonie, M.DJeannette 12/04/2006 Injection Injection Zack Tonie, M.DJeannette 11/22/2006 Injection Injection Zack Tonie, M.DJeannette 11/06/2006 Injection Injection Zack Tonie, Mac.DJeannette 10/23/2006 Injection Injection Zack Tonie, M.DJeannette 10/02/2006 Injection Injection Zack Tonie, Mac.DJeannette 09/18/2006 Injection Injection Zack Tonie, Mac.DJeannette 09/04/2006 Injection Injection Zack Tonie, Mac.DJeannette 08/21/2006 Injection Injection Zack Tonie, SrinivasanDJeannette 08/07/2006 Injection Injection Zack Tonie, SrinivasanDJeannette 07/24/2006 Injection Injection Zack Tonie, Mac.DJeannette 07/10/2006 Injection Injection Zack Tonie, Mac.DJeannette 06/26/2006 Injection Injection Zack Tonie, M.DJeannette 06/12/2006 Injection Injection Zack Tonie, M.DJeannette 05/17/2006 Injection Injection Zack Tonie, M.DJeannette 04/17/2006 Injection Injection Zack Tonie, Mac.DJeannette 03/24/2006 Injection Injection Zack Tonie, Mac.DJeannette 02/20/2006 Injection Injection Zack Tonie, M.DJeannette 01/25/2006 Injection Injection Zack Tonie, M.DJeannette 12/26/2005 Injection Injection Zack Tonie, M.DJeannette 12/12/2005 Injection Injection Zack Tonie, M.DJeannette 11/28/2005 Injection Injection Zack Tonie, M.DJeannette 11/14/2005 Injection Injection Zack Tonie, M.DJeannette 10/31/2005 Injection Injection Zack Tonie, M.DJeannette 10/17/2005 Injection Injection Zack Tonie, M.DJeannette 10/03/2005 Injection Injection Zack Tonie, M.DJeannette 09/21/2005 Injection Injection Zack Tonie, M.DJeannette 09/05/2005 Injection Injection Zack Tonie, M.DJeannette 08/22/2005 Injection Injection Zack Tonie, M.DJeannette 08/08/2005 Injection Injection Zack Tonie, M.DJeannette 07/25/2005 Injection Injection Zack Tonie, M.DJeannette 07/11/2005 Injection Injection Zack Tonie, M.DJeannette 06/27/2005 Injection Injection Zack Tonie, M.DJeannette 05/30/2005 Injection Injection Zack Tonie, M.DJeannette 05/02/2005 Injection Injection Zack Tonie, M.DJeannette 04/04/2005 Injection Injection Zack Tonie, M.DJeannette 03/09/2005 Injection Injection Zack Tonie, M.DJeannette 02/07/2005 Injection Injection Zack Tonie, M.DJeannette 01/10/2005 Injection Injection Zack Tonie, M.DJeannette 12/27/2004 Injection Injection Zack Tonie, M.DJeannette 12/13/2004 Injection Injection Zack Tonie, M.DJeannette 11/29/2004 Injection Injection Zack Tonie, M.DJeannette 11/15/2004 Injection Injection Zack Tonie, M.DJeannette 11/01/2004 Injection Injection Zack Tonie, M.DJeannette 10/18/2004 Injection Injection Zack Tonie, M.DJeannette 10/04/2004 Injection Injection Zack Tonie, M.DJeannette 09/22/2004 Injection Injection Zack Tonie, M.DJeannette 09/06/2004 Injection Injection Zack Tonie, M.DJeannette 08/23/2004 Injection Injection Zack Tonie, M.DJeannette 08/02/2004 Injection Injection Zack Tonie, M.DJeannette 07/19/2004 Injection Injection Zack Tonie, M.DJeannette 07/07/2004 Injection Injection Zack Tonie, M.DJeannette 06/21/2004 Injection Injection Zack Tonie, M.DJeannette 06/07/2004 Injection Injection Zack Tonie, M.DJeannette 05/14/2004 Injection Injection Zack Tonie, M.DJeannette 04/12/2004 Injection Injection Zack Tonie, M.D. 03/17/2004 Injection Injection Zack Tonie, M.D. 02/23/2004 Injection Injection Zack Tonie, M.D. 01/26/2004 Injection Injection Zack Tonie, M.DJeannette 12/29/2003 Injection Injection Zack Tonie, M.DJeannette 12/15/2003 Injection Injection Zack Tonie, M.DJeannette 12/01/2003 Injection Injection Zack Tonie, M.DJeannette 11/17/2003 Injection Injection Zack Tonie, M.DJeannette 11/03/2003 Injection Injection Zack Tonie, M.DJeannette 10/20/2003 Injection Injection Zack Tonie, M.DJeannette 10/06/2003 Injection Injection Zack Tonie, M.DJeannette 09/22/2003 Injection Injection Zack Tonie, M.DJeannette 09/08/2003 Injection Injection Zack Tonie, M.DJeannette 08/25/2003 Injection Injection Zack Tonie, M.DJeannette 08/15/2003 Injection Injection Zack Tonie, M.DJeannette 07/28/2003 Injection Injection Zack Tonie, M.DJeannette 07/14/2003 Injection Injection Zack Tonie, M.DJeannette 07/02/2003 Injection Injection Zack Tonie, M.DJeannette 06/16/2003 Injection Injection Zack Tonie, M.DJeannette 06/02/2003 Injection Injection Zack Tonie, M.DJeannette 05/05/2003 Injection Injection Zack Tonie, M.DJeannette 04/07/2003 Injection Injection Zack Tonie, M.DJeannette 03/10/2003 Injection Injection Zack Tonie, M.D. 02/10/2003 Injection Injection Zack Tonie, M.D. 01/15/2003 Injection Injection Zack Tonie, M.D. 12/30/2002 Injection Injection Zack Tonie, M.D. 12/16/2002 Injection Injection Zack Tonie, M.DJeannette 12/04/2002 Injection Injection Zack Tonie, M.DJeannette 11/20/2002 Injection Injection Zack Tonie, M.DJeannette 2002 Injection Injection Zack Schilling M.D. 10/21/2002 Injection Immunizations CPT Code Status Date Vaccine Lot # 28812 Given 11/18/2014 Influenza Vaccine 95508 Given 01/01/2014 Influenza Vaccine 69049 Given Unknown Pneumococcal Vaccine 69850 Given Unknown Influenza Vaccine 94652 Given Unknown Influenza Vaccine Vital Signs Date Vital Result Comment 08/17/2018 11:17am Height 64.5 inches 5'4.50" Weight 140.00 lb Weight 63.504 kg Respiratory Rate 20 /min Heart Rate 68 /min O2 % BldC Oximetry 97 % BP Systolic 110 mmHg BP Diastolic 82 mmHg BMI (Body Mass Index) 23.7 kg/m2 05/18/2018 11:37am Height 64.5 inches 5'4.50" Weight 141.00 lb Weight 63.958 kg Respiratory Rate 21 /min Heart Rate 83 /min O2 % BldC Oximetry 97 % BP Systolic 122 mmHg BP Diastolic 69 mmHg Asthma Control Test 25 Fractional Exhaled Nitric Oxide 9 BMI (Body Mass Index) 23.8 kg/m2 11/17/2017 11:25am Height 64.5 inches 5'4.50" Weight 140.00 lb Weight 63.504 kg Respiratory Rate 20 /min Heart Rate 60 /min O2 % BldC Oximetry 97 % BP Systolic 127 mmHg BP Diastolic 65 mmHg Asthma Control Test 25 BMI (Body Mass Index) 23.7 kg/m2 10/12/2017 9:10am Height 64.5 inches 5'4.50" Weight 138.00 lb Weight 62.597 kg Respiratory Rate 20 /min Heart Rate 66 /min O2 % BldC Oximetry 97 % BP Systolic 97 mmHg BP Diastolic 55 mmHg Asthma Control Test 25 BMI (Body Mass Index) 23.3 kg/m2 04/12/2017 9:56am Height 64.5 inches 5'4.50" Weight 140.00 lb Weight 63.504 kg Respiratory Rate 16 /min Heart Rate 66 /min O2 % BldC Oximetry 97 % BP Systolic 108 mmHg BP Diastolic 58 mmHg Asthma Control Test 24 BMI (Body Mass Index) 23.7 kg/m2 02/03/2017 11:20am Height 64.5 inches 5'4.50" Weight 140.00 lb Weight 63.504 kg Respiratory Rate 16 /min Heart Rate 70 /min O2 % BldC Oximetry 99 % BP Systolic 125 mmHg BP Diastolic 71 mmHg Asthma Control Test 24 BMI (Body Mass Index) 23.7 kg/m2 01/18/2017 11:39am Height 64.5 inches 5'4.50" Weight 140.00 lb Weight 63.504 kg Respiratory Rate 16 /min Heart Rate 70 /min O2 % BldC Oximetry 97 % BP Systolic 104 mmHg BP Diastolic 65 mmHg Asthma Control Test 25 BMI (Body Mass Index) 23.7 kg/m2 07/20/2016 3:11pm Height 64.5 inches 5'4.50" Weight 134.00 lb Weight 60.782 kg Respiratory Rate 20 /min Heart Rate 67 /min O2 % BldC Oximetry 97 % BP Systolic 113 mmHg BP Diastolic 57 mmHg Asthma Control Test 25 BMI (Body Mass Index) 22.6 kg/m2 01/15/2016 11:27am Height 64.5 inches 5'4.50" Weight 140.25 lb Weight 63.617 kg Respiratory Rate 20 /min Heart Rate 78 /min O2 % BldC Oximetry 98 % BP Systolic 98 mmHg BP Diastolic 57 mmHg Asthma Control Test 25 BMI (Body Mass Index) 23.7 kg/m2 07/15/2015 8:44am Height 64.5 inches 5'4.50" Weight 140.12 lb Weight 63.561 kg Respiratory Rate 16 /min Heart Rate 76 /min O2 % BldC Oximetry 97 % BP Systolic 100 mmHg BP Diastolic 54 mmHg Asthma Control Test 25 BMI (Body Mass Index) 23.7 kg/m2 05/13/2015 1:23pm Height 64.5 inches 5'4.50" Weight 138.50 lb Weight 62.824 kg Respiratory Rate 19 /min Heart Rate 78 /min O2 % BldC Oximetry 97 % BP Systolic 128 mmHg BP Diastolic 62 mmHg Asthma Control Test 18 BMI (Body Mass Index) 23.4 kg/m2 04/27/2015 3:15pm Height 64.5 inches 5'4.50" Weight 138.00 lb Weight 62.597 kg Respiratory Rate 18 /min Heart Rate 77 /min Body Temperature 97.4 F O2 % BldC Oximetry 98 % BP Systolic 119 mmHg BP Diastolic 62 mmHg Asthma Control Test 19 BMI (Body Mass Index) 23.3 kg/m2 04/23/2015 9:21am Height 64.5 inches 5'4.50" Weight 138.00 lb Weight 62.597 kg Respiratory Rate 22 /min Heart Rate 78 /min O2 % BldC Oximetry 97 % BP Systolic 118 mmHg BP Diastolic 50 mmHg Asthma Control Test 25 BMI (Body Mass Index) 23.3 kg/m2 01/09/2015 10:29am Height 64.5 inches 5'4.50" Weight 139.00 lb Weight 63.050 kg Respiratory Rate 16 /min Heart Rate 65 /min O2 % BldC Oximetry 98 % BP Systolic 123 mmHg BP Diastolic 66 mmHg Asthma Control Test 24 BMI (Body Mass Index) 23.5 kg/m2 07/04/2014 10:38am Height 64.5 inches 5'4.50" Weight 134.00 lb Weight 60.782 kg Respiratory Rate 16 /min Heart Rate 68 /min O2 % BldC Oximetry 98 % BP Systolic 128 mmHg BP Diastolic 62 mmHg Asthma Control Test 25 BMI (Body Mass Index) 22.6 kg/m2 05/05/2014 1:16pm Height 64.5 inches 5'4.50" Weight 135.00 lb Weight 61.236 kg Respiratory Rate 18 /min Heart Rate 71 /min Body Temperature 98.2 F O2 % BldC Oximetry 98 % BP Systolic 130 mmHg BP Diastolic 70 mmHg Asthma Control Test 25 BMI (Body Mass Index) 22.8 kg/m2 01/03/2014 11:02am Height 64.5 inches 5'4.50" Weight 132.00 lb Weight 59.875 kg Respiratory Rate 16 /min Heart Rate 65 /min O2 % BldC Oximetry 97 % BP Systolic 120 mmHg BP Diastolic 65 mmHg Asthma Control Test 25 BMI (Body Mass Index) 22.3 kg/m2 12/18/2013 3:47pm Height 65 inches 5'5" Weight 135.00 lb Weight 61.236 kg Respiratory Rate 16 /min Heart Rate 70 /min O2 % BldC Oximetry 97 % BP Systolic 114 mmHg BP Diastolic 68 mmHg Asthma Control Test 25 BMI (Body Mass Index) 22.5 kg/m2 08/02/2013 11:30am Height 65 inches 5'5" Weight 128.00 lb Weight 58.061 kg Respiratory Rate 16 /min Heart Rate 62 /min O2 % BldC Oximetry 98 % BP Systolic 100 mmHg BP Diastolic 58 mmHg Asthma Control Test 25 BMI (Body Mass Index) 21.3 kg/m2 05/27/2013 4:00pm Height 65 inches 5'5" Weight 130.00 lb pt verbalized weight Weight 58.968 kg Respiratory Rate 14 /min Heart Rate 69 /min O2 % BldC Oximetry 96 % BP Systolic 105 mmHg BP Diastolic 69 mmHg Asthma Control Test 21 BMI (Body Mass Index) 21.6 kg/m2 04/15/2013 3:16pm Height 65 inches 5'5" Weight 130.00 lb Weight 58.968 kg Respiratory Rate 18 /min Heart Rate 74 /min O2 % BldC Oximetry 98 % BP Systolic 118 mmHg BP Diastolic 62 mmHg Asthma Control Test 24 BMI (Body Mass Index) 21.6 kg/m2 03/04/2013 10:54am Height 65 inches 5'5" Weight 130.00 lb Weight 58.968 kg Respiratory Rate 16 /min Heart Rate 78 /min O2 % BldC Oximetry 98 % BMI (Body Mass Index) 21.6 kg/m2 02/18/2013 3:03pm Height 64.5 inches 5'4.50" Weight 145.00 lb Weight 65.772 kg Respiratory Rate 18 /min Heart Rate 75 /min O2 % BldC Oximetry 98 % BP Systolic 122 mmHg BP Diastolic 60 mmHg Asthma Control Test 24 BMI (Body Mass Index) 24.5 kg/m2 01/11/2013 10:28am Height 64.5 inches 5'4.50" Weight 145.00 lb Weight 65.772 kg Respiratory Rate 16 /min Heart Rate 63 /min O2 % BldC Oximetry 98 % BP Systolic 120 mmHg BP Diastolic 80 mmHg Asthma Control Test 24 BMI (Body Mass Index) 24.5 kg/m2 11/07/2012 8:45am Height 64.5 inches 5'4.50" Weight 145.00 lb Weight 65.772 kg Respiratory Rate 18 /min Heart Rate 75 /min O2 % BldC Oximetry 98 % BP Systolic 118 mmHg BP Diastolic 80 mmHg BMI (Body Mass Index) 24.5 kg/m2 07/06/2012 8:41am Height 64.5 inches 5'4.50" Weight 144.00 lb Weight 65.318 kg Respiratory Rate 24 /min Heart Rate 73 /min O2 % BldC Oximetry 97 % BP Systolic 120 mmHg BP Diastolic 60 mmHg BMI (Body Mass Index) 24.3 kg/m2 01/06/2012 11:34am Respiratory Rate 18 /min Heart Rate 67 /min O2 % BldC Oximetry 98 % Procedures Date Code Description Status 08/17/2018 72325 Pre PFT Completed 05/18/2018 32080 Nitric Oxide Gas Determination Completed 05/18/2018 51632 Pre PFT Completed 11/17/2017 08057 Pre PFT Completed 10/12/2017 53227 Pre PFT Completed 10/04/2017 70637 Injection Completed 10/04/2017 81582 Injection Completed 09/13/2017 19730 Injection Completed 08/30/2017 19106 Injection Completed 08/16/2017 40624 Injection Completed 08/04/2017 61485 Extract 1-10 Completed 08/02/2017 62354 Injection Completed 07/19/2017 79705 Injection Completed 07/05/2017 99693 Injection Completed 06/07/2017 02992 Injection Completed 05/10/2017 54141 Injection Completed 04/12/2017 58849 Injection Completed 04/12/2017 69373 Pre PFT Completed 03/15/2017 20181 Injection Completed 02/15/2017 70941 Injection Completed 01/18/2017 44903 Pre PFT Completed 01/12/2017 69671 Injection Completed 12/28/2016 27471 Injection Completed 12/15/2016 69710 Injection Completed 12/08/2016 32452 Extract 1-10 Completed 12/08/2016 33754 Extract 1-10 Completed 12/01/2016 62881 Injection Completed 11/17/2016 49508 Injection Completed 11/03/2016 30530 Injection Completed 11/03/2016 10598 Injection Completed 10/20/2016 33446 Injection Completed 10/06/2016 76454 Injection Completed 09/29/2016 40166 Injection Completed 09/15/2016 27824 Injection Completed 09/01/2016 23427 Injection Completed 09/01/2016 80492 Injection Completed 08/25/2016 24119 Injection Completed 08/11/2016 96048 Injection Completed 07/28/2016 44300 Injection Completed 07/28/2016 13786 Extract 1-10 Completed 07/20/2016 69787 Pre PFT Completed 07/14/2016 71333 Injection Completed 06/30/2016 73824 Injection Completed 06/16/2016 96965 Injection Completed 05/18/2016 44056 Injection Completed 04/20/2016 81602 Injection Completed 03/24/2016 96431 Injection Completed 02/25/2016 93641 Injection Completed 01/28/2016 46294 Injection Completed 01/15/2016 87095 Pre PFT Completed 12/31/2015 24091 Injection Completed 12/17/2015 07409 Injection Completed 12/08/2015 19546 Extract 1-10 Completed 12/04/2015 71120 Injection Completed 11/05/2015 42292 Injection Completed 10/26/2015 21583 Injection Completed 10/08/2015 57892 Injection Completed 09/23/2015 84907 Injection Completed 09/09/2015 96771 Injection Completed 08/26/2015 28451 Injection Completed 08/13/2015 78713 Injection Completed 07/30/2015 94979 Injection Completed 07/15/2015 17976 Injection Completed 07/15/2015 69834 Pre PFT Completed 07/01/2015 23159 Injection Completed 06/18/2015 86884 Injection Completed 06/18/2015 01113 Extract 1-10 Completed 05/27/2015 31857 Injection Completed 05/13/2015 55370 Injection Completed 04/27/2015 41314 Ippb Completed 04/03/2015 91943 Injection Completed 03/04/2015 23907 Injection Completed 02/04/2015 46907 Injection Completed 01/14/2015 57467 Injection Completed 01/09/2015 79295 Pulmonary Function Test Completed 12/31/2014 87747 Injection Completed 12/15/2014 06578 Injection Completed 12/01/2014 91611 Injection Completed 11/17/2014 75373 Injection Completed 11/06/2014 61611 Extract 1-10 Completed 11/03/2014 45800 Injection Completed 10/20/2014 12358 Injection Completed 10/06/2014 73482 Injection Completed 09/22/2014 34438 Injection Completed 09/08/2014 01692 Injection Completed 08/25/2014 63608 Injection Completed 08/08/2014 16216 Injection Completed 07/28/2014 81112 Injection Completed 07/14/2014 36576 Injection Completed 07/04/2014 29214 Pulmonary Function Test Completed 06/30/2014 27158 Injection Completed 06/05/2014 39962 Extract 1-10 Completed 06/02/2014 06041 Injection Completed 05/05/2014 14667 Injection Completed 04/07/2014 12478 Injection Completed 03/10/2014 31512 Injection Completed 02/10/2014 88825 Injection Completed 01/22/2014 66938 Injection Completed 01/06/2014 25246 Injection Completed 01/03/2014 24417 Pre PFT Completed 12/23/2013 08517 Injection Completed 12/02/2013 95098 Injection Completed 11/20/2013 54566 Injection Completed 11/15/2013 97613 Extract 1-10 Completed 2013 59584 Injection Completed 10/21/2013 89509 Injection Completed 10/07/2013 30274 Injection Completed 09/23/2013 27752 Injection Completed 09/09/2013 14944 Injection Completed 08/19/2013 14144 Injection Completed 08/05/2013 21958 Injection Completed 07/22/2013 17823 Injection Completed 07/08/2013 49630 Injection Completed 06/24/2013 53567 Injection Completed 06/17/2013 84694 Injection Completed 06/14/2013 43381 Injection Completed 06/03/2013 38110 Injection Completed 05/27/2013 10942 Injection Completed 05/22/2013 68760 Injection Completed 05/13/2013 81104 Injection Completed 05/06/2013 91230 Injection Completed 04/29/2013 53503 Injection Completed 04/22/2013 14088 Injection Completed 04/15/2013 69409 Injection Completed 04/08/2013 92923 Injection Completed 04/01/2013 08879 Injection Completed 03/25/2013 24064 Injection Completed 03/11/2013 87452 Injection Completed 03/04/2013 19698 Injection Completed 02/27/2013 89214 Injection Completed 02/18/2013 73543 Oxygen Level - Pulse Oximiter Completed 02/06/2013 71420 Injection Completed 01/30/2013 39468 Injection Completed 01/23/2013 13394 Injection Completed 01/16/2013 60773 Injection Completed 01/11/2013 04621 Oxygen Level - Pulse Oximiter Completed 01/11/2013 02175 Pulmonary Function Test Completed 01/09/2013 07658 Injection Completed 01/02/2013 29590 Injection Completed 12/26/2012 53035 Injection Completed 12/17/2012 99159 Injection Completed 12/12/2012 42845 Injection Completed 11/28/2012 86721 Injection Completed 11/21/2012 61328 Injection Completed 11/13/2012 93218 Extract 1-10 Completed 11/07/2012 39148 Oxygen Level - Pulse Oximiter Completed 01/06/2012 81916 Oxygen Level - Pulse Oximiter Completed 01/06/2012 25671 Pre PFT Completed 2011 84408 Oxygen Level - Pulse Oximiter Completed 2011 43446 Pulmonary Function Test Completed 11/11/2009 81165 Skin Tests Id Completed 10/28/2009 40272 Skin Test Scratch # Of Units ____ Completed 10/09/2009 02107 Injection Completed 09/30/2009 62197 Extract 1-10 Completed 09/28/2009 61549 Injection Completed 09/14/2009 42169 Injection Completed 09/02/2009 06353 Injection Completed 08/19/2009 70831 Injection Completed 08/05/2009 04041 Injection Completed 07/20/2009 94065 Injection Completed 07/06/2009 13030 Injection Completed 06/22/2009 29985 Injection Completed 06/08/2009 29150 Injection Completed 05/11/2009 47161 Injection Completed 04/13/2009 05421 Injection Completed 03/18/2009 25451 Injection Completed 02/16/2009 27936 Injection Completed 01/19/2009 30739 Injection Completed 12/22/2008 53237 Injection Completed 12/18/2008 52825 Extract 1-10 Completed 12/08/2008 92361 Injection Completed 11/26/2008 34926 Injection Completed 11/10/2008 25927 Injection Completed 10/27/2008 91321 Injection Completed 10/13/2008 32239 Injection Completed 09/29/2008 24621 Injection Completed 09/01/2008 23851 Injection Completed 08/20/2008 97327 Injection Completed 07/28/2008 43035 Injection Completed 07/14/2008 89074 Injection Completed 07/01/2008 94296 Extract 1-10 Completed 06/30/2008 77176 Injection Completed 06/02/2008 89143 Injection Completed 05/28/2008 53087 Pulmonary Function Test Completed 04/28/2008 36985 Injection Completed 03/31/2008 31974 Injection Completed 03/03/2008 16943 Injection Completed 02/06/2008 00396 Injection Completed 01/07/2008 03037 Injection Completed 12/24/2007 44621 Injection Completed 12/10/2007 69394 Injection Completed 11/28/2007 03319 Extract 1-10 Completed 11/26/2007 32278 Injection Completed 11/12/2007 12281 Injection Completed 10/29/2007 73012 Injection Completed 10/19/2007 25099 Injection Completed 10/01/2007 38012 Injection Completed 09/17/2007 86530 Injection Completed 09/05/2007 57283 Injection Completed 08/20/2007 49126 Injection Completed 08/06/2007 33370 Injection Completed 07/23/2007 52579 Injection Completed 06/27/2007 93813 Extract 1-10 Completed 06/25/2007 75591 Injection Completed 05/28/2007 40515 Injection Completed 05/07/2007 81984 Injection Completed 04/11/2007 43872 Injection Completed 03/14/2007 07668 Injection Completed 02/12/2007 20425 Injection Completed 01/15/2007 76158 Injection Completed 12/18/2006 62614 Injection Completed 12/04/2006 80772 Injection Completed 11/22/2006 77895 Injection Completed 11/06/2006 48427 Injection Completed 11/03/2006 33740 Extract 1-10 Completed 10/23/2006 19072 Injection Completed 10/02/2006 81356 Injection Completed 09/18/2006 19435 Injection Completed 09/04/2006 53681 Injection Completed 08/21/2006 02377 Injection Completed 08/07/2006 34764 Injection Completed 07/24/2006 47106 Injection Completed 07/10/2006 37516 Injection Completed 06/26/2006 41597 Injection Completed 06/14/2006 29834 Extract 1-10 Completed 06/12/2006 68012 Injection Completed 05/17/2006 55642 Injection Completed 04/17/2006 08137 Injection Completed 03/24/2006 13537 Injection Completed 02/20/2006 54252 Injection Completed 01/25/2006 33722 Injection Completed 12/26/2005 13882 Injection Completed 12/12/2005 34693 Injection Completed 11/28/2005 92547 Injection Completed 11/14/2005 23920 Injection Completed 11/02/2005 76468 Extract 1-10 Completed 10/31/2005 54336 Injection Completed 10/17/2005 43296 Injection Completed 10/03/2005 73432 Injection Completed 09/21/2005 07996 Injection Completed 09/05/2005 03135 Injection Completed 08/22/2005 02953 Injection Completed 08/08/2005 91914 Injection Completed 07/25/2005 48477 Injection Completed 07/11/2005 60042 Injection Completed 06/27/2005 59084 Injection Completed 06/01/2005 45318 Extract 1-10 Completed 05/30/2005 44854 Injection Completed 05/02/2005 40110 Injection Completed 04/04/2005 00581 Injection Completed 03/09/2005 19283 Injection Completed 02/07/2005 19422 Injection Completed 01/10/2005 64307 Injection Completed 12/27/2004 59009 Injection Completed 12/13/2004 91367 Injection Completed 11/29/2004 97879 Injection Completed 11/15/2004 44052 Injection Completed 11/07/2004 69988 Extract 1-10 Completed 11/01/2004 56155 Injection Completed 10/18/2004 87525 Injection Completed 10/04/2004 72885 Injection Completed 09/22/2004 77460 Injection Completed 09/06/2004 15183 Injection Completed 08/23/2004 72778 Injection Completed 08/02/2004 51114 Injection Completed 07/19/2004 75294 Injection Completed 07/07/2004 84914 Injection Completed 06/21/2004 21955 Injection Completed 06/09/2004 18350 Extract 1-10 Completed 06/07/2004 83652 Injection Completed 05/26/2004 69751 Pulmonary Function Test Completed 05/14/2004 50902 Injection Completed 04/12/2004 37822 Injection Completed 03/17/2004 66443 Injection Completed 02/23/2004 69923 Injection Completed 01/26/2004 36293 Injection Completed 12/29/2003 50407 Injection Completed 12/15/2003 31289 Injection Completed 12/01/2003 76971 Injection Completed 11/17/2003 81774 Injection Completed 11/05/2003 92230 Extract 1-10 Completed 11/03/2003 62845 Injection Completed 10/20/2003 74561 Injection Completed 10/06/2003 05360 Injection Completed 09/22/2003 79132 Injection Completed 09/08/2003 84868 Injection Completed 08/25/2003 99787 Injection Completed 08/15/2003 48133 Injection Completed 07/28/2003 88391 Injection Completed 07/14/2003 02011 Injection Completed 07/02/2003 00637 Injection Completed 06/16/2003 54155 Injection Completed 06/02/2003 61959 Injection Completed 05/07/2003 02376 Extract 1-10 Completed 05/05/2003 55309 Injection Completed 04/07/2003 93149 Injection Completed 03/10/2003 99901 Injection Completed 02/10/2003 46675 Injection Completed 01/15/2003 21549 Injection Completed 12/30/2002 92497 Injection Completed 12/16/2002 09222 Injection Completed 12/04/2002 55151 Injection Completed 11/20/2002 31673 Injection Completed 2002 55174 Injection Completed 10/21/2002 73053 Injection Completed Encounters Type Date Location Provider Dx Diagnosis Office Visit 08/17/2018 Jennifer Cotter, J30.1 Allergic rhinitis due 11:20a [employer] to pollen J45.30 Mild persistent asthma, uncomplicated J45.40 Moderate persistent asthma, uncomplicated J30.2 Other seasonal allergic rhinitis J30.81 Allergic rhinitis due to animal (cat) (dog) hair and dander Office Visit 05/18/2018 11:40a Jennifer Mattson M.D. J30.1 Allergic rhinitis due to pollen J45.30 Mild persistent asthma, uncomplicated Office Visit 11/17/2017 11:00a Jennifer Mattson M.D. J45.40 Moderate persistent asthma, uncomplicated J30.1 Allergic rhinitis due to pollen Office Visit 10/12/2017 9:00a Jennifer Mattson M.D. J30.1 Allergic rhinitis due to pollen J45.40 Moderate persistent asthma, uncomplicated Office Visit 04/12/2017 10:00a Jennifer Cotter J45.40 Moderate persistent [employer] asthma, uncomplicated J30.1 Allergic rhinitis due to pollen J30.2 Other seasonal allergic rhinitis J30.81 Allergic rhinitis due to animal (cat) (dog) hair and dander J30.89 Other allergic rhinitis Office Visit 02/03/2017 11:20a Jennifer Cotter J45.40 Moderate persistent [employer] asthma, uncomplicated J30.89 Other allergic rhinitis J30.81 Allergic rhinitis due to animal (cat) (dog) hair and dander J30.2 Other seasonal allergic rhinitis J30.1 Allergic rhinitis due to pollen Office Visit 01/18/2017 11:40a Jennifer Adams J30.1 Allergic rhinitis M.D. due to pollen J30.2 Other seasonal allergic rhinitis J30.81 Allergic rhinitis due to animal (cat) (dog) hair and dander J30.89 Other allergic rhinitis J45.40 Moderate persistent asthma, uncomplicated J01.90 Acute sinusitis, unspecified Office Visit 07/20/2016 3:00p Jennifer Adams J30.1 Allergic rhinitis M.D. due to pollen J30.2 Other seasonal allergic rhinitis J30.81 Allergic rhinitis due to animal (cat) (dog) hair and dander J30.89 Other allergic rhinitis J45.40 Moderate persistent asthma, uncomplicated Z68.22 Body mass index (BMI) 22.0-22.9, adult Office Visit 01/15/2016 11:20a Kati Cadet30.1 Allergic rhinitis M.D. due to pollen J30.2 Other seasonal allergic rhinitis J30.81 Allergic rhinitis due to animal (cat) (dog) hair and dander J30.89 Other allergic rhinitis J45.40 Moderate persistent asthma, uncomplicated J01.90 Acute sinusitis, unspecified Office Visit 07/15/2015 8:40a Jennifer Adams J30.89 Other allergic M.D. rhinitis J30.81 Allergic rhinitis due to animal (cat) (dog) hair and dander J30.2 Other seasonal allergic rhinitis J30.1 Allergic rhinitis due to pollen J45.40 Moderate persistent asthma, uncomplicated Z68.23 Body mass index (BMI) 23.0-23.9, adult Office Visit 05/13/2015 1:20p Jennifer Kennedy J45.40 Moderate persistent [employer] asthma, uncomplicated J30.1 Allergic rhinitis due to pollen J30.81 Allergic rhinitis due to animal (cat) (dog) hair and dander J30.89 Other allergic rhinitis J30.2 Other seasonal allergic rhinitis Z68.23 Body mass index (BMI) 23.0-23.9, adult Office Visit 04/27/2015 3:20p Jennifer Kennedy J45.41 Moderate persistent [employer] asthma with (acute) exacerbation J30.1 Allergic rhinitis due to pollen J30.81 Allergic rhinitis due to animal (cat) (dog) hair and dander J30.89 Other allergic rhinitis J30.2 Other seasonal allergic rhinitis Z68.23 Body mass index (BMI) 23.0-23.9, adult Z23 Encounter for immunization Office Visit 04/23/2015 9:20a Jennifer Kennedy, [employer] J06.9 Acute upper respiratory infection, unspecified J45.40 Moderate persistent asthma, uncomplicated J30.1 Allergic rhinitis due to pollen J30.81 Allergic rhinitis due to animal (cat) (dog) hair and dander J30.89 Other allergic rhinitis J30.2 Other seasonal allergic rhinitis Z68.23 Body mass index (BMI) 23.0-23.9, adult Office Visit 01/09/2015 11:00a Jennifer Adams J45.40 Moderate persistent M.D. asthma, uncomplicated J30.1 Allergic rhinitis due to pollen J30.81 Allergic rhinitis due to animal (cat) (dog) hair and dander J30.2 Other seasonal allergic rhinitis J30.89 Other allergic rhinitis J33.0 Polyp of nasal cavity Z68.23 Body mass index (BMI) 23.0-23.9, adult Z23 Encounter for immunization Office Visit 07/04/2014 11:00a Jennifer Adams, 477.0 Rhinitis Allergic M.D. Due To Pollen 477.8 Rhinitis Allergic Due To Other Allergen 493.00 Asthma Extrinsic Unspecified 471.0 Polyp Nasal Cavity Office Visit 05/05/2014 1:20p Jennifer Angelo, 477.8 Rhinitis Allergic PH.D, RPA-C Due To Other Allergen 493.00 Asthma Extrinsic Unspecified 471.0 Polyp Nasal Cavity Office Visit 01/03/2014 11:20a Jennifer Adams, 477.0 Rhinitis Allergic M.D. Due To Pollen 477.8 Rhinitis Allergic Due To Other Allergen 493.00 Asthma Extrinsic Unspecified 471.0 Polyp Nasal Cavity Office Visit 12/18/2013 3:20p Jennifer Ball M.D. 493.00 Asthma Extrinsic Unspecified 477.8 Rhinitis Allergic Due To Other Allergen 477.0 Rhinitis Allergic Due To Pollen Office Visit 08/02/2013 11:20a Jennifer Adams, 477.0 Rhinitis Allergic M.D. Due To Pollen 477.8 Rhinitis Allergic Due To Other Allergen 493.00 Asthma Extrinsic Unspecified 471.0 Polyp Nasal Cavity Office Visit 05/27/2013 4:00p Jennifer Leigh, 477.8 Rhinitis Allergic [employer] Due To Other Allergen 477.0 Rhinitis Allergic Due To Pollen 493.00 Asthma Extrinsic Unspecified Office Visit 04/15/2013 3:20p Jennifer Leigh, 477.8 Rhinitis Allergic [employer] Due To Other Allergen 477.0 Rhinitis Allergic Due To Pollen 471.0 Polyp Nasal Cavity 493.00 Asthma Extrinsic Unspecified Office Visit 03/04/2013 11:00a Jennifer Leigh 477.8 Rhinitis Allergic [employer] Due To Other Allergen 477.0 Rhinitis Allergic Due To Pollen 493.00 Asthma Extrinsic Unspecified Office Visit 02/18/2013 3:20p Jennifer Leigh 477.0 Rhinitis Allergic [employer] Due To Pollen 493.00 Asthma Extrinsic Unspecified 471.0 Polyp Nasal Cavity Office Visit 01/11/2013 11:00a [place] Nena Adams, 477.0 Rhinitis Allergic M.D. Due To Pollen 477.8 Rhinitis Allergic Due To Other Allergen 493.00 Asthma Extrinsic Unspecified 471.0 Polyp Nasal Cavity Office Visit 11/07/2012 8:40a [place] Raisa Mari, 493.00 Asthma Extrinsic RPA-C Unspecified 477.0 Rhinitis Allergic Due To Pollen 477.8 Rhinitis Allergic Due To Other Allergen 471.0 Polyp Nasal Cavity Office Visit 07/06/2012 8:40a [place] Nena Adams, 493.00 Asthma Extrinsic M.D. Unspecified 477.0 Rhinitis Allergic Due To Pollen 477.8 Rhinitis Allergic Due To Other Allergen Office Visit 01/06/2012 11:40a [place] Nena Adams, 493.00 Asthma Extrinsic M.D. Unspecified 477.0 Rhinitis Allergic Due To Pollen 477.8 Rhinitis Allergic Due To Other Allergen 471.0 Polyp Nasal Cavity Office Visit 03/10/2010 11:00a [place] Nena Adams, 493.90 Asthma Unspec W/O M.D. Status Asthmaticus 477.0 Rhinitis Allergic Due To Pollen 477.8 Rhinitis Allergic Due To Other Allergen Office Visit 11/25/2009 3:40p [place] Nena Adams, 493.90 Asthma Unspec W/O M.D. Status Asthmaticus 477.0 Rhinitis Allergic Due To Pollen 477.8 Rhinitis Allergic Due To Other Allergen Office Visit 03/29/2004 3:15p [place] Juju Robb 477.0 Rhinitis Allergic Due To Pollen 477.8 Rhinitis Allergic Due To Other Allergen Plan of Treatment Future Appointment(s):11/30/2018 11:20 am - Nena Adams M.D. at [id number] - THALIA Saldaña-CJ30.1 Allergic rhinitis due to qmzeteS85.30 Mild persistent asthma, polhxpzpirstbK13.40 Moderate persistent asthma, shvdrxawdblvfE07.2 Other seasonal allergic pfocwkfrK89.81 Allergic rhinitis due to animal (cat) (dog) hair and danderFollow up:6 months with pre PFTRecommendations:Continue all medications as prescribed.Refrain from wearing perfumes/scented colognes while visitingour office. Start the Tammi 1 day Continue Advair 250/50 1 puff twice daily; rinse mouth after use. Continue Proair 2 puffs every 4 hours as needed; call if consistently using >2x/week Try the Flonase sensimist 2 sprays Ipratropium nasal spray as per ENT continue ENT f/u
--- OUTSIDE RECORDS SUMMARY | 2018-09-09 04:35 | XMS REPORT | Continuity of Care Document ---
:1935 External Reference #:[id number] Author Name Nena Adams M.D. Address [address] [facility] [place] [address] Care Team Providers Name Role Phone Nena Adams M.D. 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 Primary Care Physician Unavailable Payers Date Identification Numbers Payment Provider Subscriber Policy Number: [id number] Medicare-National GVT.Sys Veena Jayleen PayID: [id number] [address] [place] [address] Effective: 2016 Policy Number: [id number] [employer] Veena Jayleen Group Number: [id number] [address] Group Name: Tono/[place] [address] PayID: [id number] Problems Active Problems Provider Date Mild persistent asthma Sj Mattson M.D. Onset: 05/18/2018 Uncomplicated moderate persistent asthma Nena Adams M.D. Onset: 07/20 Moderate persistent asthma with (acute) THALIA Natarajan-C Onset: 04/27/2015 exacerbation Acute upper respiratory infection, BETTYE Natarajan Onset: 04/23/2015 unspecified Asthma Nena Adams M.D. 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 mcg/Act [...] Chewtabs Citracal +D3 1 tab daily. Unknown [phone]-mg-Unit Chewtabs Cod Liver Oil 1 cap daily. [...] Zack Ana Schilling 09/14/2009 Injection Injection Zack Ana Schilling 09/02/2009 Injection Injection Zack TonieAna slade 08/19/2009 Injection Injection Zack TonieAna slade 08/05/2009 Injection Injection Zack Ana Schilling 07/20/2009 Injection Injection Zack TonieAna slade 07/06/2009 Injection Injection Zack TonieAna slade 06/22/2009 Injection Injection Zack Ana Schilling 06/08/2009 Injection Injection Zack Ana Schilling 05/11/2009 Injection Injection Blayne Morgan M.D. 04/13/2009 Injection Injection Zack TonieAna slade 03/18/2009 Injection Injection Zack TonieAna slade 02/16/2009 Injection Injection Zack Tonie, Ana 01/19/2009 Injection Injection Zack TonieAna slade 12/22/2008 Injection Injection Zack TonieAna slade 12/08/2008 Injection Injection Zack TonieAna slade 11/26/2008 Injection Injection Zack TonieAna slade 11/10/2008 Injection Injection Zack Tonie, M.DJeannette 10/27/2008 Injection Injection Zack Tonie, M.DJeannette 10/13/2008 Injection Injection Zack Tonie, M.DJeannette 09/29/2008 Injection Injection Zack Tonie, M.DJeannette 09/01/2008 Injection Injection Zack Tonie, M.DJeannette 08/20/2008 Injection Injection Zack Tonie, M.DJeannette 07/28/2008 Injection Injection Zack Tonei, M.DJeannette 07/14/2008 Injection Injection Zack Tonie, M.DJeannette 06/30/2008 Injection Injection Zack Tonie, M.DJeannette 06/02/2008 Injection Injection Zack Tonie, M.DJeannette 04/28/2008 Injection Injection Zack Tonie, M.DJeannette 03/31/2008 Injection Injection Zack Tonie, M.DJeannette 03/03/2008 Injection Injection Zack Tonie, M.DJeannette 02/06/2008 Injection Injection Zack Tonie, Mac.DJeannette 01/07/2008 [...] Tonie, M.DJeannette 11/06/2006 Injection Injection Zack Tonie, M.DJeannette 10/23/2006 Injection Injection Zack Tonie, M.DJeannette 10/02/2006 Injection Injection Zack Tonie, M.DJeannette 09/18/2006 Injection Injection Zack Tonie, M.DJeannette 09/04/2006 Injection Injection Zack Tonie, M.DJeannette 08/21/2006 Injection Injection Zack Tonie, Mac.Paulina 08/07/2006 Injection Injection Zack Tonie, Mac.DJeannette 07/24/2006 Injection Injection Zack Tonie, Mac.DJeannette 07/10/2006 Injection Injection Zack Tonie, M.DJeannette 06/26/2006 Injection Injection Zack Tonie, M.DJeannette 06/12/2006 Injection Injection Zack Tonie, M.DJeannette 05/17/2006 Injection Injection Zack Tonie, M.DJeannette 04/17/2006 Injection Injection Zack Tonie, M.DJeannette 03/24/2006 Injection Injection Zack Tonie, M.DJeannette 02/20/2006 Injection Injection Zack Tonie, M.DJeannette 01/25/2006 [...] Tonie, M.DJeannette 03/09/2005 Injection Injection Zack Tonie, Mac.DJeannette 02/07/2005 Injection Injection Zack Tonie, Mac.DJeannette 01/10/2005 Injection Injection Zack Tonie, Mac.DJeannette 12/27/2004 Injection Injection Zack Tonie, M.DJeannette 12/13/2004 Injection Injection Zack Tonie, M.DJeannette 11/29/2004 Injection Injection Zack Tonie, M.DJeannette 11/15/2004 Injection Injection Zack Tonie, Mac.DJeannette 11/01/2004 Injection Injection Zack Tonie, Mac.DJeannette 10/18/2004 Injection Injection Zack Tonie, M.DJeannette 10/04/2004 [...] Tonie, M.DJeannette 11/20/2002 Injection Injection Zack Tonie, M.D. 2002 Injection Injection Zack Tonie, M.D. 10/21/2002 Injection Immunizations CPT Code Status Date Vaccine Lot # [id number] Given 11/18/2014 Influenza Vaccine 31417 Given 01/01/2014 Influenza Vaccine 91251 Given Unknown Pneumococcal Vaccine 28142 Given Unknown Influenza Vaccine 78106 Given Unknown Influenza Vaccine Vital Signs Date [...] % Procedures Date Code Description Status 08/17/2018 03120 Pre PFT Completed 05/18/2018 20530 Nitric Oxide Gas Determination Completed 05/18/2018 70471 Pre PFT Completed 11/17/2017 44336 Pre PFT Completed 10/12/2017 22753 Pre PFT Completed 10/04/2017 61234 Injection Completed 10/04/2017 01241 Injection Completed 09/13/2017 11847 Injection Completed 08/30/2017 80802 Injection Completed 08/16/2017 91329 Injection Completed 08/04/2017 26943 Extract 1-10 Completed 08/02/2017 29825 Injection Completed 07/19/2017 91184 Injection Completed 07/05/2017 14492 Injection Completed 06/07/2017 01369 Injection Completed 05/10/2017 73529 Injection Completed 04/12/2017 46262 Injection Completed 04/12/2017 97336 Pre PFT Completed 03/15/2017 67949 Injection Completed 02/15/2017 58202 Injection Completed 01/18/2017 11939 Pre PFT Completed 01/12/2017 31209 Injection Completed 12/28/2016 51986 Injection Completed 12/15/2016 68377 Injection Completed 12/08/2016 22127 Extract 1-10 Completed 12/08/2016 00051 Extract 1-10 Completed 12/01/2016 29966 Injection Completed 11/17/2016 96744 Injection Completed 11/03/2016 18192 Injection Completed 11/03/2016 95413 Injection Completed 10/20/2016 51626 Injection Completed 10/06/2016 52516 Injection Completed 09/29/2016 02788 Injection Completed 09/15/2016 86317 Injection Completed 09/01/2016 88999 Injection Completed 09/01/2016 44217 Injection Completed 08/25/2016 01028 Injection Completed 08/11/2016 79133 Injection Completed 07/28/2016 24211 Injection Completed 07/28/2016 65644 Extract 1-10 Completed 07/20/2016 03122 Pre PFT Completed 07/14/2016 75797 Injection Completed 06/30/2016 86231 Injection Completed 06/16/2016 30482 Injection Completed 05/18/2016 82884 Injection Completed 04/20/2016 21143 Injection Completed 03/24/2016 21782 Injection Completed 02/25/2016 70864 Injection Completed 01/28/2016 66225 Injection Completed 01/15/2016 72765 Pre PFT Completed 12/31/2015 35654 Injection Completed 12/17/2015 49138 Injection Completed 12/08/2015 67613 Extract 1-10 Completed 12/04/2015 10371 Injection Completed 11/05/2015 91093 Injection Completed 10/26/2015 21456 Injection Completed 10/08/2015 10531 Injection Completed 09/23/2015 43219 Injection Completed 09/09/2015 02788 Injection Completed 08/26/2015 62177 Injection Completed 08/13/2015 73979 Injection Completed 07/30/2015 53661 Injection Completed 07/15/2015 47073 Injection Completed 07/15/2015 03480 Pre PFT Completed 07/01/2015 12062 Injection Completed 06/18/2015 75341 Injection Completed 06/18/2015 24026 Extract 1-10 Completed 05/27/2015 30217 Injection Completed 05/13/2015 47103 Injection Completed 04/27/2015 02189 Ippb Completed 04/03/2015 37384 Injection Completed 03/04/2015 12831 Injection Completed 02/04/2015 11201 Injection Completed 01/14/2015 98234 Injection Completed 01/09/2015 31514 Pulmonary Function Test Completed 12/31/2014 07091 Injection Completed 12/15/2014 43730 Injection Completed 12/01/2014 90900 Injection Completed 11/17/2014 04808 Injection Completed 11/06/2014 12935 Extract 1-10 Completed 11/03/2014 23615 Injection Completed 10/20/2014 91544 Injection Completed 10/06/2014 56819 Injection Completed 09/22/2014 48948 Injection Completed 09/08/2014 35625 Injection Completed 08/25/2014 12567 Injection Completed 08/08/2014 59830 Injection Completed 07/28/2014 98588 Injection Completed 07/14/2014 29083 Injection Completed 07/04/2014 03904 Pulmonary Function Test Completed 06/30/2014 90304 Injection Completed 06/05/2014 95903 Extract 1-10 Completed 06/02/2014 00077 Injection Completed 05/05/2014 77767 Injection Completed 04/07/2014 72072 Injection Completed 03/10/2014 12903 Injection Completed 02/10/2014 42338 Injection Completed 01/22/2014 29901 Injection Completed 01/06/2014 97833 Injection Completed 01/03/2014 61864 Pre PFT Completed 12/23/2013 22310 Injection Completed 12/02/2013 21025 Injection Completed 11/20/2013 72655 Injection Completed 11/15/2013 90518 Extract 1-10 Completed 2013 82641 Injection Completed 10/21/2013 47999 Injection Completed 10/07/2013 22963 Injection Completed 09/23/2013 60023 Injection Completed 09/09/2013 11693 Injection Completed 08/19/2013 51231 Injection Completed 08/05/2013 88654 Injection Completed 07/22/2013 84104 Injection Completed 07/08/2013 72601 Injection Completed 06/24/2013 33258 Injection Completed 06/17/2013 73453 Injection Completed 06/14/2013 31487 Injection Completed 06/03/2013 58893 Injection Completed 05/27/2013 28584 Injection Completed 05/22/2013 03542 Injection Completed 05/13/2013 12017 Injection Completed 05/06/2013 68877 Injection Completed 04/29/2013 93721 Injection Completed 04/22/2013 18182 Injection Completed 04/15/2013 55818 Injection Completed 04/08/2013 50243 Injection Completed 04/01/2013 30765 Injection Completed 03/25/2013 18701 Injection Completed 03/11/2013 94449 Injection Completed 03/04/2013 17483 Injection Completed 02/27/2013 57452 Injection Completed 02/18/2013 40447 Oxygen Level - Pulse Oximiter Completed 02/06/2013 53728 Injection Completed 01/30/2013 67933 Injection Completed 01/23/2013 44839 Injection Completed 01/16/2013 14966 Injection Completed 01/11/2013 23799 Oxygen Level - Pulse Oximiter Completed 01/11/2013 65340 Pulmonary Function Test Completed 01/09/2013 57889 Injection Completed 01/02/2013 11635 Injection Completed 12/26/2012 55452 Injection Completed 12/17/2012 63635 Injection Completed 12/12/2012 25264 Injection Completed 11/28/2012 18464 Injection Completed 11/21/2012 22277 Injection Completed 11/13/2012 11703 Extract 1-10 Completed 11/07/2012 14084 Oxygen Level - Pulse Oximiter Completed 01/06/2012 06989 Oxygen Level - Pulse Oximiter Completed 01/06/2012 00166 Pre PFT Completed 2011 96028 Oxygen Level - Pulse Oximiter Completed 2011 05363 Pulmonary Function Test Completed 11/11/2009 67486 Skin Tests Id Completed 10/28/2009 90026 Skin Test Scratch # Of Units ____ Completed 10/09/2009 09677 Injection Completed 09/30/2009 17415 Extract 1-10 Completed 09/28/2009 86582 Injection Completed 09/14/2009 98303 Injection Completed 09/02/2009 96358 Injection Completed 08/19/2009 13252 Injection Completed 08/05/2009 70329 Injection Completed 07/20/2009 14487 Injection Completed 07/06/2009 42150 Injection Completed 06/22/2009 24333 Injection Completed 06/08/2009 77837 Injection Completed 05/11/2009 50655 Injection Completed 04/13/2009 16658 Injection Completed 03/18/2009 71851 Injection Completed 02/16/2009 61450 Injection Completed 01/19/2009 41503 Injection Completed 12/22/2008 88390 Injection Completed 12/18/2008 21614 Extract 1-10 Completed 12/08/2008 91033 Injection Completed 11/26/2008 01233 Injection Completed 11/10/2008 85052 Injection Completed 10/27/2008 08210 Injection Completed 10/13/2008 03023 Injection Completed 09/29/2008 20575 Injection Completed 09/01/2008 35128 Injection Completed 08/20/2008 34593 Injection Completed 07/28/2008 62593 Injection Completed 07/14/2008 94915 Injection Completed 07/01/2008 32873 Extract 1-10 Completed 06/30/2008 15107 Injection Completed 06/02/2008 89817 Injection Completed 05/28/2008 40986 Pulmonary Function Test Completed 04/28/2008 57983 Injection Completed 03/31/2008 72303 Injection Completed 03/03/2008 23058 Injection Completed 02/06/2008 52196 Injection Completed 01/07/2008 17539 Injection Completed 12/24/2007 96068 Injection Completed 12/10/2007 39071 Injection Completed 11/28/2007 19303 Extract 1-10 Completed 11/26/2007 33835 Injection Completed 11/12/2007 41153 Injection Completed 10/29/2007 00253 Injection Completed 10/19/2007 60815 Injection Completed 10/01/2007 51987 Injection Completed 09/17/2007 71600 Injection Completed 09/05/2007 26508 Injection Completed 08/20/2007 76500 Injection Completed 08/06/2007 59588 Injection Completed 07/23/2007 59365 Injection Completed 06/27/2007 41122 Extract 1-10 Completed 06/25/2007 84649 Injection Completed 05/28/2007 90070 Injection Completed 05/07/2007 80440 Injection Completed 04/11/2007 63994 Injection Completed 03/14/2007 55172 Injection Completed 02/12/2007 44033 Injection Completed 01/15/2007 78716 Injection Completed 12/18/2006 11992 Injection Completed 12/04/2006 72907 Injection Completed 11/22/2006 61603 Injection Completed 11/06/2006 02378 Injection Completed 11/03/2006 41072 Extract 1-10 Completed 10/23/2006 12714 Injection Completed 10/02/2006 93642 Injection Completed 09/18/2006 61597 Injection Completed 09/04/2006 60282 Injection Completed 08/21/2006 89734 Injection Completed 08/07/2006 75785 Injection Completed 07/24/2006 17617 Injection Completed 07/10/2006 00959 Injection Completed 06/26/2006 64384 Injection Completed 06/14/2006 77714 Extract 1-10 Completed 06/12/2006 66013 Injection Completed 05/17/2006 50426 Injection Completed 04/17/2006 99280 Injection Completed 03/24/2006 91442 Injection Completed 02/20/2006 27223 Injection Completed 01/25/2006 35938 Injection Completed 12/26/2005 07737 Injection Completed 12/12/2005 75382 Injection Completed 11/28/2005 76437 Injection Completed 11/14/2005 86212 Injection Completed 11/02/2005 68478 Extract 1-10 Completed 10/31/2005 31383 Injection Completed 10/17/2005 51109 Injection Completed 10/03/2005 03003 Injection Completed 09/21/2005 65434 Injection Completed 09/05/2005 86942 Injection Completed 08/22/2005 45817 Injection Completed 08/08/2005 37034 Injection Completed 07/25/2005 28048 Injection Completed 07/11/2005 76524 Injection Completed 06/27/2005 70482 Injection Completed 06/01/2005 83723 Extract 1-10 Completed 05/30/2005 61390 Injection Completed 05/02/2005 97801 Injection Completed 04/04/2005 26449 Injection Completed 03/09/2005 55323 Injection Completed 02/07/2005 45276 Injection Completed 01/10/2005 87310 Injection Completed 12/27/2004 90085 Injection Completed 12/13/2004 69239 Injection Completed 11/29/2004 84630 Injection Completed 11/15/2004 38496 Injection Completed 11/07/2004 39598 Extract 1-10 Completed 11/01/2004 69791 Injection Completed 10/18/2004 39734 Injection Completed 10/04/2004 34504 Injection Completed 09/22/2004 65744 Injection Completed 09/06/2004 44897 Injection Completed 08/23/2004 67947 Injection Completed 08/02/2004 74748 Injection Completed 07/19/2004 13176 Injection Completed 07/07/2004 39337 Injection Completed 06/21/2004 91413 Injection Completed 06/09/2004 32486 Extract 1-10 Completed 06/07/2004 46204 Injection Completed 05/26/2004 84245 Pulmonary Function Test Completed 05/14/2004 59974 Injection Completed 04/12/2004 86568 Injection Completed 03/17/2004 04968 Injection Completed 02/23/2004 58988 Injection Completed 01/26/2004 84747 Injection Completed 12/29/2003 52179 Injection Completed 12/15/2003 04305 Injection Completed 12/01/2003 92420 Injection Completed 11/17/2003 50799 Injection Completed 11/05/2003 08951 Extract 1-10 Completed 11/03/2003 46818 Injection Completed 10/20/2003 69628 Injection Completed 10/06/2003 01050 Injection Completed 09/22/2003 37716 Injection Completed 09/08/2003 04713 Injection Completed 08/25/2003 70086 Injection Completed 08/15/2003 57080 Injection Completed 07/28/2003 59816 Injection Completed 07/14/2003 19559 Injection Completed 07/02/2003 82883 Injection Completed 06/16/2003 22015 Injection Completed 06/02/2003 21008 Injection Completed 05/07/2003 30265 Extract 1-10 Completed 05/05/2003 19215 Injection Completed 04/07/2003 26418 Injection Completed 03/10/2003 98518 Injection Completed 02/10/2003 09601 Injection Completed 01/15/2003 83411 Injection Completed 12/30/2002 86553 Injection Completed 12/16/2002 97005 Injection Completed 12/04/2002 13330 Injection Completed 11/20/2002 72364 Injection Completed 2002 15219 Injection Completed 10/21/2002 32098 Injection Completed Encounters Type Date Location Provider Dx Diagnosis Office Visit 08/17/2018 Jennifer Cotter, J30.1 Allergic rhinitis due 11:20a SEM MANAGER-C to pollen J45.30 Mild persistent asthma, uncomplicated J45.40 Moderate persistent asthma, uncomplicated J30.2 Other seasonal allergic rhinitis J30.81 Allergic rhinitis due to animal (cat) (dog) hair and dander Office Visit 05/18/2018 11:40a Jennfier Mattson M.D. J30.1 Allergic rhinitis due to pollen J45.30 Mild persistent asthma, uncomplicated Office Visit 11/17/2017 11:00a Jennifer Mattson M.D. J45.40 Moderate persistent asthma, uncomplicated J30.1 Allergic rhinitis due to pollen Office Visit 10/12/2017 9:00a Jennifer Mattson M.D. J30.1 Allergic rhinitis due to pollen J45.40 Moderate persistent asthma, uncomplicated Office Visit 04/12/2017 10:00a Jennifer Cotter J45.40 Moderate persistent SEM MANAGER-C asthma, uncomplicated J30.1 Allergic rhinitis due to pollen J30.2 Other seasonal allergic rhinitis J30.81 Allergic rhinitis due to animal (cat) (dog) hair and dander J30.89 Other allergic rhinitis Office Visit 02/03/2017 11:20a Jennifer Cotter J45.40 Moderate persistent SEM MANAGER-C asthma, uncomplicated J30.89 Other allergic rhinitis J30.81 [...] Acute sinusitis, unspecified Office Visit 07/20/2016 3:00p Kati Cadet30.1 Allergic rhinitis M.D. due to [...] 05/13/2015 1:20p Jennifer Kennedy J45.40 Moderate persistent SEM MANAGER-C asthma, uncomplicated J30.1 Allergic rhinitis due to pollen J30.81 Allergic rhinitis due to animal (cat) (dog) hair and dander J30.89 Other allergic rhinitis J30.2 Other seasonal allergic rhinitis Z68.23 Body mass index (BMI) 23.0-23.9, adult Office Visit 04/27/2015 3:20p Jennifer Kennedy J45.41 Moderate persistent SEM MANAGER-C asthma with (acute) exacerbation J30.1 Allergic rhinitis due to pollen J30.81 Allergic rhinitis due to animal (cat) (dog) hair and dander J30.89 Other allergic rhinitis J30.2 Other seasonal allergic rhinitis Z68.23 Body mass index (BMI) 23.0-23.9, adult Z23 Encounter for immunization Office Visit 04/23/2015 9:20a Jennifer Kennedy, SEM MANAGER-C J06.9 Acute upper respiratory infection, unspecified J45.40 [...] 05/27/2013 4:00p Jennifer Leigh, 477.8 Rhinitis Allergic SEM MANAGER-C Due To Other Allergen 477.0 Rhinitis Allergic Due To Pollen 493.00 Asthma Extrinsic Unspecified Office Visit 04/15/2013 3:20p Jennifer Leigh, 477.8 Rhinitis Allergic SEM MANAGER-C Due To Other Allergen 477.0 Rhinitis Allergic Due To Pollen 471.0 Polyp Nasal Cavity 493.00 Asthma Extrinsic Unspecified Office Visit 03/04/2013 11:00a Jennifer Leigh 477.8 Rhinitis Allergic SEM MANAGER-C Due To Other Allergen 477.0 Rhinitis Allergic Due To Pollen 493.00 Asthma Extrinsic Unspecified Office Visit 02/18/2013 3:20p Jennifer Leigh 477.0 Rhinitis Allergic SEM MANAGER-C Due To Pollen 493.00 Asthma Extrinsic Unspecified 471.0 Polyp Nasal Cavity Office Visit 01/11/2013 11:[address]a [facility] Nena Adams, 477.0 Rhinitis Allergic M.D. Due To Pollen 477.8 Rhinitis Allergic Due To Other Allergen 493.00 Asthma Extrinsic Unspecified 471.0 Polyp Nasal Cavity Office Visit 11/07/2012 8:40a [facility] Raisa Mari, 493.00 Asthma Extrinsic RPA-C Unspecified 477.0 Rhinitis Allergic Due To Pollen 477.8 Rhinitis Allergic Due To Other Allergen 471.0 Polyp Nasal Cavity Office Visit 07/06/2012 8:40a [facility] Nena Adams, 493.00 Asthma Extrinsic M.D. Unspecified 477.0 Rhinitis Allergic Due To Pollen 477.8 Rhinitis Allergic Due To Other Allergen Office Visit 01/06/2012 11:40a [facility] Nena Adams, 493.00 Asthma Extrinsic M.D. Unspecified 477.0 Rhinitis Allergic Due To Pollen 477.8 Rhinitis Allergic Due To Other Allergen 471.0 Polyp Nasal Cavity Office Visit 03/10/2010 11:[address]a [facility] Nena Adams, 493.90 Asthma Unspec W/O M.D. Status Asthmaticus 477.0 Rhinitis Allergic Due To Pollen 477.8 Rhinitis Allergic Due To Other Allergen Office Visit 11/25/2009 3:40p [facility] Nena Adams, 493.90 Asthma Unspec W/O M.D. Status Asthmaticus 477.0 Rhinitis Allergic Due To Pollen 477.8 Rhinitis Allergic Due To Other Allergen Office Visit 03/29/2004 3:15p [facility] Juju Robb 477.0 Rhinitis Allergic Due To Pollen 477.8 Rhinitis Allergic Due To Other Allergen Plan of Treatment Future Appointment(s):11/30/2018 11:20 am - Nena Adams M.D. at [facility] - THALIA Saldaña-CJ30.1 Allergic rhinitis due to hhryunW53.30 Mild persistent asthma, ylooivkevavgtB36.40 Moderate persistent asthma, yrbknwoupqjmrY03.2 Other seasonal allergic qlkbzyqwF15.81 Allergic rhinitis due to animal (cat) (dog) [...]
--- NOTE | 2018-09-09 05:09 | ED ---
Abdominal Pain/Female - HPI Summary HPI Summary: This patient is a 82 year old F brought in by ambulance to [facility] with a chief complaint sudden lower abdominal pain with vomiting since 0200 am upon waking. Pain is unrelieved by over the counter pain medication. Pain rated 8/10 in severity. Denies diarrhea and previous abdominal surgeries. - History of Current Complaint Chief Complaint: EDAbdPain Stated Complaint: ABD PAIN PER EMS Time Seen by Provider: 09/09/18 03:45 Hx Obtained From: Patient Onset/Duration: Sudden Onset, Lasting Hours Timing: Hours Severity Currently: Severe Pain Intensity: 8 Pain Scale Used: 0-10 Numeric Location: Other - lower abdomen Radiates: No Alleviating Factor(s): Nothing Associated Signs and Symptoms: Positive: Nausea, Vomiting Allergies/Adverse Reactions: Allergies Allergy/AdvReac Type Severity Reaction Status Date / Time trimethoprim [From Bactrim] Allergy Intermediate Hives Verified 09/09/18 11:31 montelukast Allergy Unknown Unknown Verified 09/09/18 11:31 Reaction Details sulfamethoxazole Allergy Unknown Hives Verified 09/09/18 08:29 Home Medications: Home Medications Calcium Citrate/Vitamin D3 [Citracal Petites/Vitamin] 2 tab PO 09/09/18 [History ] PMH/Surg Hx/FS Hx/Imm Hx Endocrine/Hematology History: Reports: Hx Thyroid Disease - HYPO Denies: Hx Diabetes Cardiovascular History: Reports: Hx Hypercholesterolemia Denies: Hx Hypertension, Hx Pacemaker/ICD Respiratory History: Reports: Hx Asthma, Other Respiratory Problems/Disorders - sinus problems Denies: Hx Chronic Obstructive Pulmonary Disease (COPD) GI History: Reports: Hx Gastroesophageal Reflux Disease, Hx Hiatal Hernia, Hx Ulcer - gerd History: Reports: Hx Kidney Stones Denies: Hx Renal Disease Musculoskeletal History: Reports: Hx Arthritis - RA, osteoarthritis, Hx Osteoporosis Sensory History: Reports: Hx Cataracts - SURGERY , Hx Contacts or Glasses - glasses, Hx Hearing Aid - both ears Opthamlomology History: Reports: Hx Cataracts - SURGERY , Hx Contacts or Glasses - glasses Psychiatric History: Reports: Hx Depression Denies: Hx Panic Disorder - Cancer History Hx Chemotherapy: No Hx Radiation Therapy: No - Surgical History Surgery Procedure, Year, and Place: Sinus Surgery 2012. LEFT Wrist -viv/ thumb Surgery fusion [facility] [place]. Tonsillectomy 194. bilat cataract surgery with IOL Hx Anesthesia Reactions: No - Immunization History Immunizations Up to Date: Yes Infectious Disease History: No Infectious Disease History: Denies: Hx Clostridium Difficile, Hx Hepatitis, Hx Human Immunodeficiency Virus (HIV), Hx of Known/Suspected MRSA, Hx Shingles, Hx Tuberculosis, Hx Known/ Suspected VRE, Hx Known/Suspected VRSA, History Other Infectious Disease, Traveled Outside the [place] in Last 30 Days - Family History Known Family History: Positive: Cardiac Disease - mother, Diabetes - Social History Alcohol Use: None Hx Substance Use: No Substance Use Type: Reports: None Hx Tobacco Use: No Smoking Status (MU): Never Smoked Tobacco Have You Smoked in the Last Year: No Review of Systems Negative: Fever Positive: Abdominal Pain, Vomiting, Nausea. Negative: Diarrhea All Other Systems Reviewed And Are Negative: Yes Physical Exam - Summary Physical Exam Summary: Appearance: Well-appearing, Well-nourished, lying in bed comfortably Skin: Warm, dry, no obvious rash Eyes: sclera anicteric, no conjunctival pallor ENT: mucous membranes moist, pharynx appears normal Neck: Supple, nontender Respiratory: Clear to auscultation, no signs of respiratory distress Cardiovascular: Normal S1, S2. No murmurs. Normal distal pulses in tibial and radial bilaterally. Abdomen: Soft, nontender, normal active bowel sounds present Musculoskeletal: Normal, Strength/ROM Intact Neurological: A&Ox3, awake and alert, mentation is normal, speech is fluent and appropriate Psychiatric: affect is normal, does not appear anxious or depressed Triage Information Reviewed: Yes Vital Signs On Initial Exam: Initial Vitals Temp Pulse Resp BP Pulse Ox 98.3 F 55 17 196/84 95 09/09/18 04:02 09/09/18 04:02 09/09/18 04:02 09/09/18 04:02 09/09/18 04:02 Vital Signs Reviewed: Yes Diagnostics - Vital Signs Vital Signs Temp Pulse Resp BP Pulse Ox 09/09/18 04:30 18 09/09/18 04:02 98.3 F 55 17 196/84 95 - Laboratory Lab Results: Lab Results 09/09/18 09/09/18 09/09/18 Range/Units 03:53 03:53 03:53 WBC 6.7 (3.5-10.8) 10^3/uL RBC 3.74 (3.70-4.87) 10^6 /uL Hgb 11.4 L (12.0-16.0) g/dL Hct 34 L (35-47) % MCV 91 (80-97) fL MCH 31 (27-31) pg MCHC 34 (31-36) g/dL RDW 16 H (10-15) % Plt Count 211 (150-450) 10^3/uL MPV 6.8 L (7.4-10.4) fL Neut % (Auto) 67.8 % Lymph % (Auto) 12.8 % Willacy % (Auto) 9.7 % Eos % (Auto) 8.7 % Baso % (Auto) 1.0 % Absolute Neuts (auto) 4.5 (1.5-7.7) 10^3/ul Absolute Lymphs (auto) 0.9 L (1.0-4.8) 10^3/ul Absolute Monos (auto) 0.6 (0-0.8) 10^3/ul Absolute Eos (auto) 0.6 (0-0.6) 10^3/ul Absolute Basos (auto) 0.1 (0-0.2) 10^3/ul Absolute Nucleated RBC 0.0 10^3/ul Nucleated RBC % 0.0 Sodium 141 (135-145) mmol/L Potassium 3.1 L (3.5-5.0) mmol/L Chloride 108 (101-111) mmol/L Carbon Dioxide 25 (22-32) mmol/L Anion Gap 8 (2-11) mmol/L BUN 16 (6-24) mg/dL Creatinine 1.00 H (0.51-0.95) mg/dL Est GFR ( Amer) 64.1 (>60) Est GFR (Non-Af Amer) 53.0 (>60) BUN/Creatinine Ratio 16.0 (8-20) Glucose 109 H (70-100) mg/dL Lactic Acid 0.7 (0.5-2.0) mmol/L Calcium 9.5 (8.6-10.3) mg/dL Total Bilirubin 0.40 (0.2-1.0) mg/dL AST 24 (13-39) U/L ALT 8 (7-52) U/L Alkaline Phosphatase 74 (34-104) U/L Total Protein 6.4 (6.4-8.9) g/dL Albumin 3.7 (3.2-5.2) g/dL Globulin 2.7 (2-4) g/dL Albumin/Globulin Ratio 1.4 (1-3) Lipase 25 (11.0-82.0) U/L Result Diagrams: 09/09/18 03:53 09/09/18 03:53 Lab Statement: Any lab studies that have been ordered have been reviewed, and results considered in the medical decision making process. - EKG 0521 Cardiac Rate: Bradycardia - 55 BPM EKG Rhythm: Sinus Bradycardia Summary of EKG Findings: Sinus bradycardia at 55 BPM. Otherwise normal EKG. Abdominal Pain Fem Course/Dx - Course Course Of Treatment: 82 year old F brought in by ambulance with a chief complaint sudden lower abdominal pain with vomiting since 0200 am upon waking. Patient is given 2mg morphine, 8mg zofran, and 2000mls IVF. EKG reveals sinus bradycardia at 55 BPM but is otherwise unremarkable. Bloodwork obtained. Patient will be signed out to Dr. Yan awaiting CT A/P results and disposition. - Diagnoses Provider Diagnoses: Kidney stone Discharge - Sign-Out/Discharge Documenting (check all that apply): Sign-Out Patient Signing out patient TO: Eduardo Yan - CT A/P Patient Received Moderate/Deep Sedation with Procedure: No - Discharge Plan Condition: Fair Disposition: ADMITTED TO [facility] - Billing Disposition and Condition Condition: FAIR Disposition: Admitted to [facility] - Attestation Statements Document Initiated by Danishaibe: Yes Documenting Scribe: Tamika Diamond Provider For Whom Fadia is Documenting (Include Credential): Baldomero Mercado MD Scribe Attestation: ITamika, scribed for Baldomero Mercado MD on 09/13/18 at 1844. Scribe Documentation Reviewed: Yes Provider Attestation: The documentation as recorded by the Tamika sabillon accurately reflects the service I personally performed and the decisions made by meBaldomero MD Status of Scribe Document: Viewed
[2018-09-09] MEDS ORDERED: Iodixanol* (CONTRAST) 320 MG/ML 100 ML SDV IV ONE (05:26)
[2018-09-09 06:32] LABS: Urine Appearance Clear; Urine Bacteria Absent (Absent); Urine Bilirubin Negative (Negative); Urine Blood 3+ (Negative); Urine Color Straw; Urine Glucose Negative (Negative); Urine Ketones Negative (Negative); Urine Nitrite Negative (Negative); Urine Protein Negative (Negative); Urine Red Blood Cell 3+(>10/hpf) (Absent); Urine Specific Gravity 1.008 (1.010-1.030); Urine Urobilinogen Negative (Negative); Urine White Blood Cell Trace(0-5/hpf) (Absent)
[2018-09-09] MEDS ORDERED: Potassium Chlor TAB* 20 MEQ TAB.ER PO ONE ×2 (11:09→15:00)
--- NOTE | 2018-09-09 11:14 | ED ---
Progress - Progress Note Progress Note: This patient was signed out from Dr. Mercado to Dr. Yan upon shift change at 07 :00 09/09/[address] abdomen/pelvis. CT abdomen/pelvis impression: Severe right-sided hydronephrosis with a 9 mm stone located in the distal ureter. This is at the level of the pelvic sidewall. Discussed case with Dr. Woods, hospitalist, who recommended taking the patient to the operating room. The patient will be admitted. I discussed results with patient. The patient agrees with this plan. Re-Evaluation - Re-Evaluation First Eval Re-Evaluation Time: 11:20 Change: Unchanged Comment: reports last eating last night Course/Dx - Course Course Of Treatment: This patient was signed out from Dr. Mercado to Dr. Yan upon shift change at 07:00 09/09/[address] abdomen/pelvis. CT abdomen/ pelvis impression: Severe right-sided hydronephrosis with a 9 mm stone located in the distal. ureter. This is at the level of the pelvic sidewall. Discussed case with Dr. Woods, hospitalist, who recommended taking the patient to the operating room. The patient will be admitted. I discussed results with patient. The patient agrees with this plan. - Diagnoses Provider Diagnoses: Kidney stone - Provider Notifications Discussed Care Of Patient With: Miguel Woods Time Discussed With Above Provider: 11:19 Instructed by Provider To: Other - recommended to take the patient to the OR. Discharge - Sign-Out/Discharge Documenting (check all that apply): Patient Departure - to operating room, Receiving Sign-Out Receiving patient FROM: Baldomero Mercado Patient Received Moderate/Deep Sedation with Procedure: No - Discharge Plan Condition: Fair Disposition: ADMITTED TO [facility] - Billing Disposition and Condition Condition: FAIR Disposition: Admitted to [facility] - Attestation Statements Document Initiated by Scribe: Yes Documenting Scribe: Armen Bahena Provider For Whom Fadia is Documenting (Include Credential): Eduardo Yan MD Scribe Attestation: Armen Bal, scribed for Eduardo Yan MD on 09/09/18 at 1803. Scribe Documentation Reviewed: Yes Provider Attestation: The documentation as recorded by the Armen sabillon accurately reflects the service I personally performed and the decisions made by me, Juan Yan MD Status of Scribe Document: Viewed
[2018-09-09] MEDS ORDERED: cefTRIAXone(*) 2 GM in NS 0.9% 100 ML* 100 ML IVPB ONE (11:24)
[2018-09-09] MEDS ORDERED: Gentamicin ADULT (*) 120 MG in NS 0.9% 100 ML* 100 ML IVPB ONE (11:25)
[2018-09-09] MEDS ORDERED: Iohexol 180 (CONTRAST) 10 ML SDV IV ONE (11:43)
[2018-09-09] MEDS ORDERED: Gentamicin ADULT (*) 40 MG/ML VIAL (2 ML VIAL = 80 MG) ONE (12:33)
[2018-09-09] MEDS ORDERED: cefTRIAXone(*) 2 GM ADDV.VIAL IVPB ONE (12:34)
[2018-09-09] MEDS ORDERED: Midazolam* 1 MG/ML 2 ML VIAL (2 MG) ONE ×2 (12:49→13:41)
[2018-09-09] MEDS ORDERED: Propofol* 10 MG/ML 20 ML BTL ONE ×2 (13:12→13:47)
--- NOTE | 2018-09-09 13:20 | CONS ---
CC: Dr. Soto; Dr. Woods. * UROLOGY CONSULTATION: DATE OF CONSULT: 09/09/18 REQUESTING PHYSICIAN: Dr. Yan, in the emergency room. DIAGNOSES: 1. Right hydronephrosis. 2. Obstructing calculus right ureter. 3. Multiple right renal calculi. HISTORY OF PRESENT ILLNESS: Veena Clemens is an 82-year-old lady with a history of recurrent renal caliculi who presented to the emergency room with lower abdominal pain, nausea, and vomiting. CT scan revealed approximately 9 mm calculus in the right rph-yr-[id number] ureter with severe right hydronephrosis and multiple right renal calculi. PAST MEDICAL HISTORY: Significant for: 1. Renal calculi. 2. Asthma. 3. Hypothyroidism. 4. Rheumatoid arthritis. MEDICATIONS ON ADMISSION: 1. Aspirin 81 mg a day. 2. Calcium carbonate and vitamin D3 600 1 tablet twice daily. 3. Calcium citrate daily. 4. Folic acid 1 mg daily. 5. Potassium chloride 8 mEq twice daily. 6. Methotrexate 6 tablets once a week. 7. Synthroid 100 mcg daily. ALLERGIES AND INTOLERANCES: SULFA, TRIMETHOPRIM and MONTELUKAST. FAMILY HISTORY: Negative for stones. SMOKING HISTORY: Nonsmoker. REVIEW OF SYSTEMS: She denies any chest pain or shortness of breath. There is no history of diabetes mellitus or any other major systemic illness. PHYSICAL EXAMINATION: Reveals a pleasant elderly lady. Blood pressure is 158/ 72, pulse 70 per minute and regular, oxygen saturation 94% on room air, temperature 98.4. Cardiovascular exam: Regular rate and rhythm. S1, S2. Lungs are clear bilaterally. Abdomen is soft with mild right flank tenderness. DIAGNOSTIC STUDIES/LAB DATA: I have reviewed the labs and the imaging studies and have discussed the situation with the patient regarding the findings of a fairly large obstructing calculus in the right ureter with multiple right renal calculi. IMPRESSION AND PLAN: Plan is for right ureteroscopy, possible laser and stent insertion (likely to be followed in the near future by shockwave lithotripsy for the right renal calculi). [id number]/CPS #: [id number] MTDD
[2018-09-09] MEDS ORDERED: Chloroprocaine 2%* 20 ML VIAL ONE (13:42)
[2018-09-09] MEDS ORDERED: oxyCODONE/Acetamin 5/325 MG* TAB PO PRN (14:03)
[2018-09-09] MEDS ORDERED: Ondansetron INJ* 2 MG/ML VIAL IV PRN (14:03)
[2018-09-09] MEDS ORDERED: fentaNYL* 50 MCG/ML 2 ML VIAL (100 MCG VIAL) IV PRN (14:03)
[2018-09-09] MEDS ORDERED: Naloxone* 0.4 MG/ML 1 ML VIAL IV PRN (14:03)
[2018-09-09] MEDS ORDERED: Acetaminophen TAB* 325 MG PO PRN (14:03)
[2018-09-09] MEDS ORDERED: hydrALAZINE IV* 20 MG/ML VIAL IV SLOW PU ONE (15:03)
[2018-09-09] MEDS ORDERED: hydrALAZINE IV* 20 MG/ML VIAL ONE (15:06)
--- NOTE | 2018-09-09 16:21 | OP ---
CC: Dr. Sloan Soto * DATE OF OPERATION: 09/09/18 - [facility] DATE OF : 33 SURGEON: Dr. Woods. ANESTHESIOLOGIST: Dr. Deng. ANESTHESIA: General. PRE-OP DIAGNOSES: 1. Severe right hydronephrosis. 2. Large obstructing calculus, right distal ureter. POST-OP DIAGNOSES: 1. Severe right hydronephrosis. 2. Large obstructing calculus, right distal ureter. OPERATIVE PROCEDURES: Cystoscopy, right retrograde pyelogram, right ureteroscopy and laser lithotripsy of large obstructing calculus right ureter and removal of calculus fragments and right stent insertion. COMPLICATIONS: None. STENT USED: An 8-Cambodian stent, right ureter. SPECIMEN: Fragments of right ureteral calculus. POSTOPERATIVE CONDITION: Stable. INDICATIONS: Veena Clemens is an 82-year-old lady who was evaluated for an obstructing calculus in the right ureter. DESCRIPTION OF PROCEDURE: After induction of spinal anesthesia, the patient was placed in dorsal lithotomy position. Sequential compression devices were in place and functioning. Initial evaluation revealed evidence of urethral stenosis with a retracted urethral meatus. The bladder was examined and appeared unremarkable. A guidewire was introduced into the right ureter and on fluoroscopy she still had quite a bit of retained contrast in the right kidney confirming right hydronephrosis. Retrograde pyelogram was used to outline the anatomy of the ureter which was fairly dilated in its proximal extent. A 6- Cambodian semirigid ureteroscope was introduced and advanced under direct vision. In the distal ureter, about 5 to 6 cm above the ureterovesical junction, there was a fairly large, about 12 to 13 mm calculus. Using a 550 micron holmium laser, this was fragmented into multiple pieces, all of which were removed using a three-pronged grasper. An 8-Cambodian stent was introduced and positioned under fluoroscopy with good proximal and distal positioning obtained. A Clinton catheter was placed for temporary bladder drainage. The patient tolerated the procedure satisfactorily and was transferred back to the recovery area in stable condition. The patient also has additional right renal calculi, which may require shockwave lithotripsy at a later date. The patient tolerated the procedure satisfactorily. [id number]/CPS #: [id number] [facility]
[2018-09-09 16:27] VITALS: BP 144/65
== END 2018-09-09 16:46 | disposition home or self-care (01) ==
LOC: ED 03:32 → OR 11:23
PROVIDERS: ATTEND Urology
DX: N20.1 Calculus of ureter (principal); N13.30 Unspecified hydronephrosis; R01.1 Cardiac murmur, unspecified; J45.909 Unspecified asthma, uncomplicated; E03.9 Hypothyroidism, unspecified; M06.9 Rheumatoid arthritis, unspecified
CPT/HCPCS: 36415; 74018; 74177; 74420; 80053; 81003; 81015; 82365; 83605; 83690; 85025; 87086; 88300; 93005; 99284; A9270-GY; C1876; J0360; J0696; J1580; J2250; J2270; J2400; J2405; J2704; Q9967

== ENCOUNTER 2018-09-24 07:11 | Day surgery (SDC) | payer MEDICARE, OTHER ==
--- NOTE | 2018-09-18 10:32 | HP ---
CC: Dr. Soto * HISTORY AND PHYSICAL: DATE OF PLANNED ADMISSION AND SURGERY: 09/24/18 HISTORY OF PRESENT ILLNESS: Ms. Clemens is an 82-year-old white female who is admitted with right renal calculi, status post placement of right ureteral stent for shockwave lithotripsy of right renal calculi and possible cystoscopy and removal of right ureteral stent. Ms. Clemens is a known stone former and had required endoscopic treatment of right renal calculi in February 2018. She presented to the emergency room on 09/09/18 with symptoms of right renal colic. Noncontrast CT of the abdomen and pelvis showed calculus in the lower pole calyx of the right kidney and there was an obstructing 1.3 cm calculus in the mid right ureter. The patient underwent an urgent cystoscopy, right ureteroscopy, and laser lithotripsy of the right ureteral calculus with insertion of right ureteral stent. She did very well postoperatively. Postoperative KUB showed the right ureteral stent in good position, a 1 cm calcification in the lower pole calyx of the right kidney and there were small calcifications noted along the stent in its distal third. It was not clear if those represented stone fragments or pelvic calcifications. The patient is now admitted for shockwave lithotripsy of the right renal calculi and possible removal of the right ureteral stent. PAST MEDICAL HISTORY AND SYSTEM REVIEW: The patient has history of asthma, hypothyroidism, and rheumatoid arthritis. She is otherwise, in good health. She denies any cardiac or pulmonary diseases or symptoms. ALLERGIES: She reports being allergic to SULFA DRUGS, TRIMETHOPRIM, and MONTELUKAST. FAMILY HISTORY: Negative. SOCIAL HISTORY: She denies history of alcohol intake and she has never been a smoker. PHYSICAL EXAMINATION GENERAL: She is a pleasant elderly white female who looks good for her age. VITAL SIGNS: Blood pressure 110/70, pulse 66. LUNGS: Clear. HEART: Regular and rhythmic, no murmurs. ABDOMEN: Soft, no masses and no tenderness. EXTREMITIES: Show no edema. IMPRESSION: 1. Right renal calculus. 2. Status post right ureteroscopy, laser lithotripsy and right ureteral stent insertion. PLAN: Plan is for shockwave lithotripsy of the right renal calculi. Decision will be made with possible cystoscopy and removal of the right ureteral stent. [id number]/[facility] #: [id number] [facility]
[~2018-09-24 07:11] MED LIST changes: -Buffered Lidocaine 0.9% SYRIN* 5 ML/SYR SYRINGE INTRADERM ONE; +Buffered Lidocaine 1% SYRIN* 1 ML/SYRINGE INTRADERM ONE; -Dexamethasone IV* 4 MG/ML 1 ML (4 MG) IV SLOW PU ONE; +Dexamethasone TAB* 4 MG PO ONE; +DiMENhydriNATE IV* 50 MG/ML VIAL IV PUSH PRN; +Lactated Ringers 1000 ML Bag* 1,000 ML IV SCH; +Morphine 4 MG/ML VIAL (1 ml) 4 MG/ML VIAL IV PRN; +Naloxone* 0.4 MG/ML 1 ML VIAL IV PRN; +Ondansetron ODT TAB* 4 MG PO ONE; +PROCHLORPERAZINE INJ 5 MG/ML 2 ML VIAL IV PRN; +fentaNYL* 50 MCG/ML 2 ML VIAL (100 MCG VIAL) IV PRN; +oxyCODONE/Acetamin 5/325 MG* TAB PO PRN
[2018-09-24] MEDS ORDERED: Midazolam* 1 MG/ML 2 ML VIAL (2 MG) ONE (07:52)
[2018-09-24] MEDS ORDERED: fentaNYL* 50 MCG/ML 2 ML VIAL (100 MCG VIAL) ONE (07:52)
[2018-09-24] MEDS ORDERED: KETAMINE HCL* 50 MG/ML 10 ML VIAL ONE (07:52)
[2018-09-24] MEDS ORDERED: Ondansetron ODT TAB* 4 MG ONE (08:20)
[2018-09-24] MEDS ORDERED: Famotidine IV* 10 MG/ML 2 ML (20 mg) ONE (08:21)
[2018-09-24] MEDS ORDERED: cefTRIAXone(*) 1 GM ADVAN/BAG ONE (08:21)
[2018-09-24] MEDS ORDERED: Dexamethasone TAB* 4 MG ONE (08:21)
[2018-09-24] MEDS ORDERED: Lidocaine 2% PF * 5 ML VIAL ONE (09:41)
[2018-09-24] MEDS ORDERED: Phenylephrine 10 MG/ML VIAL* 1 ML VIAL ONE (09:41)
[2018-09-24] MEDS ORDERED: Propofol* 10 MG/ML 20 ML BTL ONE (09:41)
--- NOTE | 2018-09-24 11:57 | OP ---
CC: Dr. Soto * DATE OF OPERATION: 09/24/18 - [facility] DATE OF : 33 SURGEON: Steffen Lagos MD. ANESTHESIOLOGIST: Dr. Sorin Medina. ANESTHESIA: General. PRE-OP DIAGNOSES: 1. Right renal calculi. 2. Status post placement of right ureteral stent. POST-OP DIAGNOSES: 1. Right renal calculi. 2. Status post placement of right ureteral stent. OPERATIVE PROCEDURE: Shockwave lithotripsy of multiple right renal calculi. INDICATIONS: Mrs. Clemens is an 82-year-old white female who is a known stone former and who presented about 10 days ago with symptoms of right renal colic and was noted to have a 1.5 cm obstructing calculus in the mid right ureter and multiple right renal calculi. She had urgent right ureteroscopy, laser lithotripsy of the ureteral calculus with extraction of all the fragments, and insertion of right ureteral stent. Postoperative KUB showed multiple calculi, each measuring 6 to 7 mm in size, located in the renal pelvis and the lower pole calyces. The patient now admitted for shockwave lithotripsy of the right renal calculi. Pathology preoperative KUB showed 1 calculus measuring about 6 mm adjacent to the proximal end of the ureteral stent. There was another calculus measuring about 7 mm located in the mid to lower pole calyx and another 6 mm calculus in the lower pole calyx. DESCRIPTION OF PROCEDURE: After successful general anesthesia, the patient was placed in the supine position on the shockwave lithotripsy table. The above- described calculi were each targeted separately with the shockwave lithotripsy. A total of 2400 shocks were then delivered at a rate of 60 shocks per minute. The patient developed PVCs through the treatments and the shockwaves were gated with the EKG. At the end of the treatment, there was very good fragmentation of the stones. The patient tolerated the procedure well and left the operating room in good condition. Patient will be seen in the office in about 10 days with KUB. Decision will be made stent removal. [id number]/CPS #: [id number] MTDD
[2018-09-24 13:05] VITALS: BP 151/78
== END 2018-09-24 12:58 | disposition home or self-care (01) ==
LOC: OR 07:11
PROVIDERS: ATTEND Urology
DX: N20.0 Calculus of kidney (principal); Z87.442 Personal history of urinary calculi; J45.909 Unspecified asthma, uncomplicated; E03.9 Hypothyroidism, unspecified; M06.9 Rheumatoid arthritis, unspecified
CPT/HCPCS: 74018; A9270-GY; J0696; J2250; J2704; J3010; J8540

== ENCOUNTER 2019-02-02 10:57 | Emergency (ER) | payer MEDICARE, OTHER ==
--- OUTSIDE RECORDS SUMMARY | 2019-02-02 11:02 | XMS REPORT | Continuity of Care Document ---
:1935 External Reference #:[id number] Author Name THALIA Lockhart (transmitted by agent of provider Zayra Miranda) Address [address] [place] [address] Care Team Providers Name Role Phone Sloan Soto III, MD - Internal Care Team Information Body Piercer Medicine Problems Active Problems Provider Date Hypothyroidism Sloan Soto M.D. Onset: 12/15/2010 Hyperlipidemia Sloan Soto M.D. Onset: 12/15/2010 Rheumatoid arthritis Sloan Soto M.D. Onset: 12/15/2010 Gastroesophageal reflux disease Sloan Soto M.D. Onset: 12/15/2010 Osteoporosis Sloan Soto M.D. Onset: 12/15/2010 Medications Halfway (Current) Use Amrik Garcia M.D. 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/2015 Social History Type Date Description Comments Sex Unknown Tobacco Use Start: Unknown Never Smoked Cigarettes ETOH Use Denies alcohol use Tobacco Use Start: Unknown Patient has never smoked Smoking Status Reviewed: 01/07/19 Patient has never smoked Exercise Type/Frequency Exercises sporadically Exercise Type/Frequency rn patient services, gardens on occ Allergies, Adverse Reactions, Alerts Active Allergies Reaction Severity Comments Date Septra Rash 09/19/2006 Singulair 01/07/03 09/19/2006 Medications Active Medications SIG Qnty Indications Ordering Provider Date Klor-Con take1 tablet by 90tabs Sloan Soto, 02/19/2018 8Meq Tablets ER mouth twice a M.D. day Shingrix 2 doses 6 month 2units Z23 Charitoofikasey Myers, 11/27/2017 50mcg Suspension apart [employer] Rec Omeprazole 1 by mouth every 90caps K21.9 Sloan Soto, 06/26/2017 20mg Capsules day M[address]D. DR Cordero Take 6 Tablets 72tabs M05.40 Charitoofia Louis, 08/13/2015 2.5mg By Mouth Weekly [employer]NER [employer]ANT Tablets M06.09 Z79.899 Folic Acid 1 tab by mouth 90tabs Z79.899 Zsofia Louis, [employer]NER [employer]SULTANT 05/07/2014 1mg Tablets every day Advair Diskus 1 puff po bid 1units Other Ordering 08/20/2012 Provider 250-50mcg/Dose Aerosol Sertraline HCL Take 2 Tablets By 135tabs Sloan Soto, 05/06/2011 50mg Mouth Every Day M.D. Tablets Synthroid take one tablet by 90tabs Sloan Soto, 12/15/2010 100mcg Tablets mouth every day M.D. (need to do labs for further refills) Asa 1 po qd 30units Unknown 81mg Cod Liver Oil 1 capsule daily Unknown Capsules Flunisolide 2 sprays each 1units Unknown 25mcg/Act nostril everyday (0.025%) Solution as needed Calcium + D twice daily Unknown Medications Administered in Office Medication SIG Qnty Indications Ordering Provider Date Shingrix pharmacy administered Unknown 12/28/2018 Injection Shingrix pharmacy administered Unknown 10/03/2018 Injection Prolia Injection, Denosumab, 1MG Charitoofikasey Myers, [employer]ANT 09/14/2015 Injection Prolia Injection, Denosumab, 1MG Nurse Visit 02/26/2015 Injection Immunizations CPT Code Status Date Vaccine Reaction Lot # [id number] Given 12/28/2018 Fluzone High Dose 61449 Given 12/21/2017 Fluzone High Dose 07482 Given 04/03/2017 Pneumonia Vaccine no reaction noted [id number] 87781 Given 12/29/2016 Influenza Virus Vaccine, [id number] Quadrivalent, Split, Preservative Free 51522 Given 12/21/2015 Influenza Virus Vaccine, [id number] Quadrivalent, Split, Preservative Free 94998 Given 01/15/2015 Influenza Virus Vaccine, [id number] Quadrivalent, Split, Preservative Free 14169 Given 01/24/2014 Pneumococcal Conjugate Vaccine 13 Valent For Intramuscular Use 64783 Given 01/01/2014 Influenza Virus Vaccine, [id number] Quadrivalent, Split, Preservative Free 14883 Given 11/23/2012 Flu Vaccine Split Virus Preservative Free For Indiv 3Yr Older 96558 Given 07/14/2011 Zoster (Zostavax) [id number] Q2038 Given 12/15/2010 Fluzone Vaccine [id number] 39100 Given 12/15/2010 Tetanus And Diptheria (Td) For [id number] Adult Use Preservative Free 75037 Given 01/30/2009 Influenza Virus Vaccine, [id number] Pandemic Formulation 03407 Given 01/30/2009 Administration Swine Flu Shot 53730 Given 01/08/2009 Influenza Virus 3Yrs & Over 01845 Given 12/26/2007 Influenza Virus 3Yrs & Over 86010 Given 12/29/2006 Influenza Virus 3Yrs & Over 49758 Given 12/29/2006 Influenza Virus 3Yrs & Over 76077 83370 Given Unknown Pneumonia Vaccine Vital Signs Date Vital Result Comment 01/07/2019 11:29am Height 65 inches 5'5" Weight 127.00 lb Heart Rate 56 /min BP Systolic Sitting 122 mmHg BP Diastolic Sitting 80 mmHg O2 % BldC Oximetry 97 % BMI (Body Mass Index) 21.1 kg/m2 10/04/2018 10:30am Height 65 inches 5'5" Weight 134.38 lb Heart Rate 68 /min BP Systolic 138 mmHg BP Diastolic 74 mmHg Body Temperature 98.2 F O2 % BldC Oximetry 96 % BMI (Body Mass Index) 22.4 kg/m2 Results Test Date Facility Test Result H/L Range Note CBC Auto 09/09/2018 [facility] White Blood 6.7 10^3/uL Normal 3.5-10.[address] [place] [address] [phone] Red Blood Count 3.74 10^6/uL Normal 3.70-4.87 Hemoglobin 11.4 g/dL Low 12.0-16.0 Hematocrit 34 % Low 35-47 Mean Corpuscular Volume 91 fL Normal 80-97 Mean Corpuscular Hemoglobin 31 pg Normal 27-31 Mean Corpuscular HGB Conc 34 g/dL Normal 31-36 Red Cell Distribution Width 16 % High 10-15 Platelet Count 211 10^3/uL Normal 150-450 Mean Platelet Volume 6.8 fL Low 7.4-10.4 Abs Neutrophils 4.5 10^3/uL Normal 1.5-7.7 Abs Lymphocytes 0.9 10^3/uL Low 1.0-4.8 Abs Monocytes 0.6 10^3/uL Normal 0-0.8 Abs Eosinophils 0.6 10^3/uL Normal 0-0.6 Abs Basophils 0.1 10^3/uL Normal 0-0.2 Abs Nucleated RBC 0.0 10^3/uL Granulocyte % 67.8 % Lymphocyte % 12.8 % Monocyte % 9.7 % Eosinophil % 8.7 % Basophil % 1.0 % Nucleated Red Blood Cells % 0.0 Laboratory test 09/09/2018 [facility] Lactic Acid 0.7 mmol/L Normal 0.5-2.0 1 finding [address] [place] [address] [phone] Comp Metabolic 09/09/2018 [facility] Sodium 141 mmol/L Normal 135-145 Panel [address] [place] [address] [phone] Potassium 3.1 mmol/L Low 3.5-5.0 Chloride 108 mmol/L Normal 101-111 Co2 Carbon Dioxide 25 mmol/L Normal 22-32 Anion Gap 8 mmol/L Normal 2-11 Glucose 109 mg/dL High 70-100 Blood Urea Nitrogen 16 mg/dL Normal 6-24 Creatinine 1.00 mg/dL High 0.51-0.95 BUN/Creatinine Ratio 16.0 Normal 8-20 Calcium 9.5 mg/dL Normal 8.6-10.3 Total Protein 6.4 g/dL Normal 6.4-8.9 Albumin 3.7 g/dL Normal 3.2-5.2 Globulin 2.7 g/dL Normal 2-4 Albumin/Globulin Ratio 1.4 Normal 1-3 Total Bilirubin 0.40 mg/dL Normal 0.2-1.0 Alkaline Phosphatase 74 U/L Normal 34-104 Alt 8 U/L Normal 7-52 Ast 24 U/L Normal 13-39 Egfr Non- 53.0 >60 Egfr 64.1 >60 2 Laboratory test 09/09/2018 [facility] Lipase 25 U/L Normal 11.0-82.[address] [place] [address] [phone] Urinalysis 09/09/2018 [facility] Urine Color Straw Profile [address] [place] [address] [phone] Urine Appearance Clear Urine Specific [place] 1.008 Low 1.010-1.030 Urine pH 6.0 Normal 5-9 Urine Urobilinogen Negative Negative Urine Ketones Negative Negative Urine Protein Negative Negative Urine Leukocytes 1+ Abnormal Negative Urine Blood 3+ Abnormal Negative Urine Nitrite Negative Negative Urine Bilirubin Negative Negative Urine Glucose Negative Negative Urine White Blood Cell Trace(0-5/hpf) Absent Urine Red Blood Cell 3+(>10/hpf) Abnormal Absent Urine Bacteria Absent Absent Urine Culture And 09/09/2018 [facility] Urine Culture SEE RESULT [address] [place] [address] [phone] 1 [facility] Severe Sepsis and Septic Shock Management Bundle Measure requires all lactic acids initially measuring >2.0 mmol/L be repeated. 2 Because ethnic data is not always readily available, this report includes an eGFR for both -Americans and non- Americans. The National Kidney Disease Education Program (NKDEP) does not endorse the use of the MDRD equation for patients that are not between the ages of 18 and 70, are , have extremes of body size, muscle mass, or nutritional status, or are non- or non-. According to the National Kidney Foundation, irrespective of diagnosis, the stage of the disease is based on the level of kidney function: Stage Description GFR(mL/min/1.73 m(2)) 1 Kidney damage with normal or decreased GFR 90 2 Kidney damage with mild decrease in GFR 60-89 3 Moderate decrease in GFR 30-59 4 Severe decrease in GFR 15-29 5 Kidney failure <15 (or dialysis) 3 SEE RESULT BELOW Name: ALEX SEYMOUR : [address]: Miguel Woods MD Acct: [id number] Unit: [id number] AGE: 82 Location: OR Re09/09/18 SEX: F Status: DEP SDC SPEC: [id number] DREW: 09/09/18 [facility] [address]: Baldomero Mercado MD REQ: [id number] RECD: 09/09/18 STATUS: ALAN BARBOUR DR: Sloan Soto III, MD _ SOURCE: URINE SPDESC: ORDERED: Urine Culture Procedure Result Reported Site Urine Culture Final 09/10/18- 1106 ML No Growth (<1,000 CFU/mL) * - Main Lab . END OF REPORT DEPARTMENT OF PATHOLOGY, [address] [place] [address] Pierre Gregorio M.D. Director [facility] # [id number] Procedures Date Code Description Status 07/05/2017 045017408 Bone Mineral Density Test Completed 12/07/2016 [id number] Mammogram Completed 10/24/2016 [id number] Diabetic Retinal Eye Exam Completed 12/07/2015 82393596 Mammogram Completed 09/28/2015 693117819 Diabetic Retinal Eye Exam Completed 01/22/2015 [id number] Bone Mineral Density Test Completed 12/05/2014 94693392 Mammogram Completed 12/04/2013 70015730 Mammogram Completed 07/26/2013 [id number] Diabetic Retinal Eye Exam Completed 12/03/2012 052631905 Bone Mineral Density Test Completed 12/03/2012 80275314 Mammogram Completed 12/21/2010 354341334 Bone Mineral Density Test Completed 12/21/2010 64037096 Mammogram Completed 12/28/2009 91069545 Mammogram Completed 02/27/2007 85401125 Colonoscopy Completed 01/30/2006 [id number] Colonoscopy Completed Medical Devices Description No Information Available Encounters Type Date Location Provider Dx Diagnosis Office Visit 10/04/2018 Rheumatology Alvaro Myers, M06.09 Rheumatoid 10:30a [facility] - [employer] arthritis w/o Ccmob rheumatoid factor, multiple sites N20.0 Calculus of kidney M81.0 Age-related osteoporosis w/o current pathological fracture Z79.899 Other retirement (current) drug therapy Assessments Date Code Description Provider 01/07/2019 M06.09 Rheumatoid arthritis without rheumatoid factor, THALIA Lockhart multiple sit 01/07/2019 M81.0 Age-related osteoporosis without current THALIA Lockhart pathological fractu 01/07/2019 Z79.899 Other retirement (current) drug therapy THALIA Lockhart 01/07/2019 F43.21 Adjustment disorder with depressed mood Alvaro Myers, [employer]ANT 01/07/2019 N20.0 Calculus of kidney Alvaro Mcgeek, THALIA 01/07/2019 R29.6 Repeated falls Alvaro Mcgeek, [employer]ANT 10/04/2018 M06.09 Rheumatoid arthritis without rheumatoid factor, THALIA Lockhart multiple sit 10/04/2018 N20.0 Calculus of kidney Rileykasey Louis, [employer]NER [employer]ANT 10/04/2018 M81.0 Age-related osteoporosis without current THALIA Lockhart pathological fractu 10/04/2018 Z79.899 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 THALIA Lockhart Plan of Treatment Future Appointment(s):04/08/2019 1:00 pm - THALIA Lockhart at [facility]01/07/2019 - YVETTE LockhartPM06.09 Rheumatoid arthritis without rheumatoid factor, multiple sitComments:Your rheumatoid arthritis seems to be clinically well controlled at this time.The symptoms of rheumatoid arthritis seems to be well controlled at this time.Please, continue with the present medication regime.Please call the office if you develop any sign or symptoms of infection or acute change in your health.Follow up:3 month labs nosthV00.0 Age-related osteoporosis without current pathological fractuComments:For your osteoporosis: Take a Calcium 1000 mg supplement and Vit D 1000 IU daily. Continue on lactate milk. I will call if we need to changed any of the medications or supplements after I reviewed results. Please continue with your exercise class and start back PTZ79.899 Other keno terminal operator ( current) drug zbfqldkP52.21 Adjustment disorder with depressed moodN20.0 Calculus of kidneyComments:How to avoid kidney stones:Drink water throughout the day. We recommend about 2.5-3 quarts a day. ingeneral, if your urine is light and clear, you're likely drinking enough water.Eat fewer oxalate-rich foods. These include rhubarb, beets, okra, spinach, [place] chard, sweet potatoes , nuts, tea, chocolate and soy products.Reduce the amount of salt you eat and choose non-animal protein sources.Continue eating calcium-rich foods, but use caution with calcium supplements. Calcium in food doesn't have an effect on your risk of kidney stones, but calcium supplements have been linked to increased risk of kidney stones. You may reduce the risk by taking supplements with meals. Diets low in calcium can increase kidney stone formation in some people.R29.6 Repeated fallsNew Therapy:Physical TherapyComments:I recommend balance and gait training to prevent repeated falls.You also need to do strength training as we discussed.Please call if you would like referral to PT Functional Status Description No Information Available Mental Status Description No Information Available Referrals Description No Information Available
--- OUTSIDE RECORDS SUMMARY | 2019-02-02 11:02 | XMS REPORT | Continuity of Care Document ---
:1935 External Reference #:[id number] Author Name Dennis Frank M.D. Address [address] [place] [address] Care Team Providers Name Role Phone Nena Adams M.D. Care Team Information Rivet Sticker [phone] Sloan Soto MD Care Team Information Rivet Sticker [phone] Problems Active Problems Provider Date Polyp of nasal sinus Dennis Frank M.D. Onset: 07/10/2012 Social History Type Date Description Comments Sex Unknown Tobacco Use Start: Unknown Never Smoked Cigarettes Tobacco Use Start: Unknown Never Smoked Cigars Tobacco Use Start: Unknown Never Smoked A Pipe Smokeless Tobacco Never Used Smokeless Tobacco ETOH Use Does not drink alcohol Tobacco Use Start: Unknown Patient has never smoked Smoking Status Reviewed: 01/13/19 Patient has never smoked Allergies, Adverse Reactions, Alerts Active Allergies Reaction Severity Comments Date Septra 05/04/2010 Singulair 05/04/2010 Medications Active Medications SIG Qnty Indications Ordering Provider Date Advair Diskus Unknown 100-50mcg/Dose Aerosol Flunisolide use 2 squirts in Unknown 25mcg/Act each nostril two (0.025%) Solution times a day Ipratropium [place] Unknown 0.03% Solution Potassium 1 by mouth every Unknown 75mg Tablets day Methotrexate Unknown Powder Levothyroxine Sodium Unknown 25mcg Tablets Folic Acid Unknown 0.8mg Capsules Sertraline HCL 1 by mouth every Unknown 25mg Tablets day Cod Liver Oil Unknown Capsules Aspirin 81 1 by mouth every Unknown 81mg Tablets DR day Immunizations Description No Information Available Vital Signs Date Vital Result Comment 01/14/2019 2:02pm Weight 124.00 lb Weight 56.246 kg Height 64.5 inches 5'4.50" Height in cm's 163.8 cm BMI (Body Mass Index) 21.0 kg/m2 12/24/2018 2:52pm Weight 125.00 lb Weight 56.700 kg Height 64.5 inches 5'4.50" Height in cm's 163.8 cm BMI (Body Mass Index) 21.1 kg/m2 Results Description No Information Available Procedures Date Code Description Status 01/14/2019 08913 Nasal Endoscopy, Diagnostic Completed 12/24/2018 18074 Nasal Endoscopy, Diagnostic Completed 12/19/2018 76363 Nasal Endoscopy W/ Debridement Completed 12/05/2018 77245 Nasal Endoscopy, Diagnostic Completed Medical Devices Description No Information Available Encounters Description No Information Available Assessments Date Code Description Provider 01/14/2019 J33.8 Other polyp of sinus Dennis Frank M.D. 12/24/2018 J33.8 Other polyp of sinus Dennis Frank M.D. 12/19/2018 J33.8 Other polyp of sinus Dennis Frank M.D. 12/05/2018 R09.81 Nasal congestion Dennis Frank M.D. 12/05/2018 J33.8 Other polyp of sinus Dennis Frank M.D. Plan of Treatment 01/14/2019 - Dennis Frank M.D.J33.8 Other polyp of sinusComments:The patient is doing well. There is minimal crusting on the stents. If they are still in place at her FU I will remove them.Follow up:FU February 04. Functional Status Description No Information Available Mental Status Description No Information Available Referrals Description No Information Available
--- OUTSIDE RECORDS SUMMARY | 2019-02-02 11:02 | XMS REPORT | Continuity of Care Document ---
:1935 External Reference #:[id number] Author Name Dennis Frank M.D. Address [address] [place] [address] Care Team Providers Name Role Phone Nena Adams M.D. Care Team Information Acid Cleaner [phone] Sloan Soto MD Care Team Information Acid Cleaner [phone] Problems Active Problems Provider Date Polyp of [...] Patient has never smoked Smoking Status Reviewed: 12/23/18 Patient has never smoked Allergies, Adverse Reactions, Alerts Active Allergies Reaction Severity Comments Date Septra 05/04/2010 Singulair 05/04/2010 Medications Active Medications SIG Qnty Indications Ordering Provider Date Advair Diskus Unknown 100-50mcg/Dose Aerosol Flunisolide use 2 squirts in Unknown 25mcg/Act each nostril two (0.025%) Solution times a day Ipratropium [place] Unknown 0.03% Solution Potassium 1 by mouth every Unknown 75mg Tablets day Methotrexate Unknown Powder Levothyroxine Sodium Unknown 25mcg Tablets Folic Acid Unknown 0.8mg Capsules Sertraline HCL 1 by mouth every Unknown 25mg Tablets day Cod Liver Oil Unknown Capsules Aspirin 81 1 by mouth every Unknown 81mg Tablets DR day Immunizations Description No Information Available Vital Signs Date Vital Result Comment 12/24/2018 2:52pm Weight 125.00 lb Weight 56.700 kg Height 64.5 inches 5'4.50" Height in cm's 163.8 cm BMI (Body Mass Index) 21.1 kg/m2 12/19/2018 1:09pm Weight 123.00 lb Weight 55.793 kg Height 64.5 inches 5'4.50" Height in cm's 163.8 cm BMI (Body Mass Index) 20.8 kg/m2 Results Description No Information Available Procedures Date Code Description Status 12/24/2018 35105 Nasal Endoscopy, Diagnostic Completed 12/19/2018 37303 Nasal Endoscopy W/ Debridement Completed 12/05/2018 56744 Nasal Endoscopy, Diagnostic Completed Medical Devices Description No Information Available Encounters Description No Information Available Assessments Date Code Description Provider 12/24/2018 J33.8 Other polyp of sinus Dennis Frank M.D. 12/19/2018 J33.8 Other polyp of sinus Dennis Frank M.D. 12/05/2018 R09.81 Nasal congestion Dennis Frank M.D. 12/05/2018 J33.8 Other polyp of sinus Dennis Frank M.D. Plan of Treatment Future Appointment(s):01/14/2019 2:15 pm - Dennis Frank M.D. at [place] ,After 03/20/07 Functional Status Description No Information Available Mental Status Description No Information Available Referrals Description No Information Available
[2019-02-02 11:26] VITALS: BP 152/75
--- NOTE | 2019-02-02 11:59 | UC ---
Throat Pain/Nasal Rick HPI - HPI Summary HPI Summary: CHIEF COMPLAINT and HPI: This is a 83-year-old on multiple medications with an allergy to trimethoprim sulfamethoxazole complains of a 5-7 day history of a sore throat and sinus discomfort. According to the patient. She recently had stents placed in her nose for polyps. Her discomfort is described as mild and over the maxillary sinuses. She is scheduled to see ENT in 2 days. Her temperature was 99. Patient also complains of green nasal discharge VITAL SIGNS & SaO2 REVIEWED. Within normal limits unless noted here. NURSES NOTE REVIEWED.Pt c/o sore throat since last Monday. C/o also of "green phlegm from nasal passages. States has sinus congestion and pain. Pt also states woke up in night sweats last nights." - History of Current Complaint Chief Complaint: UCGeneralIllness Stated Complaint: SORE THROAT Time Seen by Provider: 02/02/19 11:53 Pain Intensity: 0 - Allergies/Home Medications Allergies/Adverse Reactions: Allergies Allergy/AdvReac Type Severity Reaction Status Date / Time trimethoprim [From Bactrim] Allergy Intermediate Hives Verified 02/02/19 11:16 montelukast Allergy Unknown Unknown Verified 02/02/19 11:16 Reaction Details sulfamethoxazole Allergy Unknown Hives Verified 02/02/19 11:16 PMH/Surg Hx/FS Hx/Imm Hx - Additional Past Medical History Additional PMH: PAST MEDICAL HISTORY- CHRONIC and RECURRENT HEALTH PROBLEM LIST REVIEWED. Information relevant to present complaint: patient is on calcium. Patient had stents put in her nose for polyps. Patient is hypothyroid.patient has a history of kidney stones and arthritis. VISIT HISTORY REVIEWED. MEDICATIONS & ALLERGIES REVIEWED.patient is taking methotrexate. HYPERTENSION STATUS: FAMILY HISTORY: cancer SOCIAL HISTORY: nonsmoker. 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 - Surgical History Surgical History: Yes Surgery Procedure, Year, and Place: Sinus Surgery 2012. LEFT Wrist -viv/ thumb Surgery fusion [facility]. Tonsillectomy 1944. bilat cataract surgery with IOL. THUMB 4 YEARS AGO - Family History Known Family History: Positive: Cardiac Disease - mother, Diabetes - Social History Alcohol Use: None Substance Use Type: None Smoking Status (MU): Never Smoked Tobacco Have You Smoked in the Last Year: No Review of Systems All Other Systems Reviewed And Are Negative: Yes Respiratory: Positive: Negative Cardiovascular: Positive: Negative Gastrointestinal: Positive: Negative Is Patient Immunocompromised?: No Physical Exam - Summary Physical Exam Summary: Appearance: The patient is well-appearing, is in no pain or distress, and is well-nourished. Eyes: Conjunctiva are clear. Pupils are equal and reactive to light and accommodation. Extra ocular muscle movement is intact. ENT: The hearing is grossly normal, the pharynx is normal, and the TMs are normal. There is no muffled or hoarse voice. No stridor. Mild discomfort over the maxillary sinuses. There is erythema beneath both nares. Neck: The neck is supple and there is no lymphadenopathy. Respiratory: The chest is non-tender to palpation and without crepitus. The lungs are clear, there are normal breath sounds, and there is no respiratory distress. No wheezes, rales or rhonchi. Cardiovascular: Heart sounds reveal a regular rate and rhythm. There are no clicks, rubs or murmurs. There are no carotid bruits or thrills. Circulation is grossly intact. Abdomen: The abdomen is soft and nontender. There is no organomegaly. Bowel sounds are present and within normal limits. No point tenderness at McBurneys point. No CVA tenderness. Musculoskeletal: Strength is intact. The patient moves all extremities. Neurological: The patient is alert. Motor and sensory are examination grossly intact. Speech is normal. Psychological: The patient displays age appropriate behavior, and is conversant. GCS=15. Skin: Negative for rashes. Triage Information Reviewed: Yes Vital Signs: Initial Vital Signs Temp 99 F 02/02/19 11:19 Pulse 62 02/02/19 11:19 Resp 16 02/02/19 11:19 BP 152/75 02/02/19 11:19 Pulse Ox 100 02/02/19 11:19 Throat Pain/Nasal Course/Dx - Course Course Of Treatment: This is a 83-year-old on multiple medications with an allergy to trimethoprim sulfamethoxazole complains of a 5-7 day history of a sore throat and sinus discomfort. According to the patient. She recently had stents placed in her nose for polyps. Her discomfort is described as mild and over the maxillary sinuses. She is scheduled to see ENT in 2 days. Her temperature was 99. patient is tender in both maxillary sinuses. She has erythema under both nares. I discussed with the patient the need to use antibiotic ointment in this area to prevent skin infection. She is following up with ENT in 2 days for placement of stents in her nares for polyps. She will review the need for antibiotics at that time. She is instructed not to take doxycycline at the same time as calcium. - Differential Dx/Diagnosis Differential Diagnosis/HQI/PQRI: Sinusitis, URI Provider Diagnosis: Sinusitis Discharge ED - Sign-Out/Discharge Documenting (check all that apply): Patient Departure All imaging exams completed and their final reports reviewed: No Studies - Discharge Plan Condition: Stable Disposition: HOME Prescriptions: DOXYcycline CAP(*) [DOXYcycline 100MG CAP(*)] 100 mg PO BID 7 Days #14 cap MDD 2 Patient Education Materials: Sinusitis (ED) Referrals: Sloan Soto MD [Primary Care Provider] - Additional Instructions: WE DISCUSSED: PLEASE SEEK CARE AT THE EMERGENCY DEPARTMENT IF SYMPTOMS WORSEN OR IF NEW SYMPTOMS DEVELOP. FOLLOW UP WITH YOUR PRIMARY CARE PHYSICIAN IF CONDITION CONTINUES BEYOND 3 DAYS WITHOUT IMPROVEMENT. YOUR DIAGNOSIS IS: sinus congestion with possible infection. YOUR PRESCRIPTION RECOMMENDATION IS:doxycycline, twice a day for 7 days. Do not take within two hours of taking calcium. OTHER INSTRUCTIONS: See your doctor in two days as planned, and discuss if you need to be on the antibiotic. Hypertension Discharge Instructions: Your blood pressure reading today was 152/75, indicating HYPERTENSION. Follow- up with your primary care provider within 4 weeks for blood pressure check and appropriate recommendations and treatment, as needed. FOR PAIN AND/OR SLEEP: For pain: Ibuprofen (Motrin and other brand names) 400-600mg PLUS acetaminophen (Tylenol and other brand names) 500mg - 1000mg every 8 hours. use antibiotic ointment on to your nose. 2-3 times a day. Be careful of any skin infection. Follow-up as your planning to do with your doctor for your stent placement in your nose. Call us at any time for increased pain or temperature. - Billing Disposition and Condition Condition: STABLE Disposition: Home
[2019-02-02 12:15] LABS: Influenza A Molecular NEGATIVE (Negative); Influenza B Molecular NEGATIVE (Negative)
== END 2019-02-02 12:42 | disposition home or self-care (01) ==
LOC: UCEAST 10:57
DX: J32.9 Chronic sinusitis, unspecified (principal); Z88.2 Allergy status to sulfonamides; Z88.8 Allergy status to other drugs, medicaments and biological substances
CPT/HCPCS: 99212; G0463

== ENCOUNTER 2020-12-30 11:52 | Inpatient (IN) ==
[2020-12-30 12:54] LABS: ABS Eosinophils 0.1 10^3/ul (0-0.6); ABS Monocytes 0.8 10^3/ul (0-0.8); ABS Neutrophils 4.4 10^3/ul (1.5-7.7); Eosinophil % 2.2 %; Hematocrit 29 % (35-47); Hemoglobin 9.5 g/dL (12.0-16.0); Lymphocyte % 15.2 %; Mean Corpuscular HGB Conc 33 g/dL (31-36); Mean Corpuscular Hemoglobin 29 pg (27-31); Mean Corpuscular Volume 89 fL (80-97); Platelet Count 459 10^3/uL (150-450); Red Blood Count 3.28 10^6 /uL (3.70-4.87); Red Cell Distribution Width 17 % (10-15); White Blood Count 6.3 10^3/uL (3.5-10.8)
[2020-12-30 12:56] LABS: Urine Appearance Cloudy; Urine Bilirubin Negative (Negative); Urine Blood Negative (Negative); Urine Color Amber; Urine Glucose Negative (Negative); Urine Ketones Trace (Negative); Urine Nitrite Negative (Negative); Urine Protein 1+(30 mg/dL) (Negative); Urine Specific Gravity 1.021 (1.002-1.030); Urine Urobilinogen Negative (Negative)
[2020-12-30 13:04] LABS: INR 1.56 (0.86-1.15)
[2020-12-30 13:09] LABS: Urine Bacteria Absent (Absent); Urine Red Blood Cell 1+(3-5/hpf) (Absent); Urine Squamous Epithelial Cell Present (Absent); Urine White Blood Cell 1+(6-10/hpf) (Absent)
[2020-12-30 13:27] LABS: ALT 3 U/L (7-52); AST 18 U/L (13-39); Albumin 3.3 g/dL (3.2-5.2); Albumin/Globulin Ratio 1.1 (1-3); Alkaline Phosphatase 63 U/L (35-149); Anion Gap 8 mmol/L (2-11); Blood Urea Nitrogen 21 mg/dL (6-24); CO2 Carbon Dioxide 20 mmol/L (22-32); Calcium 8.9 mg/dL (8.6-10.3); Chloride 106 mmol/L (101-111); Glucose 99 mg/dL (70-100); Potassium 3.9 mmol/L (3.5-5.0); Sodium 134 mmol/L (135-145); Total Protein 6.3 g/dL (6.4-8.9)
[2020-12-30] MEDS ORDERED: Iodixanol (CONTRAST) 320 MG/ML 100 ML SDV IV ONE (13:44)
[2020-12-30 16:35] LABS: Rapid COVID-19 Molecular Undetected (Undetected)
[2020-12-30 17:58] LABS: % Iron Saturation 7 % (15-55); Iron 34 ug/dL (50-212); Total Iron Binding Capacity 455 mcg/dL (250-450); Transferrin 325 mg/dL (203-362); Unsaturated Iron Binding < 440 ug/dL
[2020-12-30 18:17] LABS: Ferritin 8.6 ng/mL (11-307)
[2020-12-30] MEDS ORDERED: Morphine 2 MG/ML SYRINGE IV PRN (18:18)
[2020-12-30] MEDS: Potassium Chlor 20 meq TAB.ER PO SCH (18:21)
[2020-12-30 18:44] LABS: Folate > 20.00 ng/mL (5.90-24.80)
[2020-12-30 18:45] LABS: Vitamin B12 > 1450 pg/mL (180-914)
[2020-12-30] MEDS ORDERED: Lactated Ringers 1000 ml BAG 1,000 ML IV SCH (19:00)
[2020-12-30 19:53] LABS: Magnesium 1.8 mg/dL (1.9-2.7)
[2020-12-30 20:20] LABS: Hematocrit 27 % (35-47); Hemoglobin 9.1 g/dL (12.0-16.0)
[2020-12-30] MEDS: Mometasone/Formoter 200/5 MDI INH SCH (21:15)
[2020-12-31 05:32] LABS: Hematocrit 32 % (35-47); Hemoglobin 10.4 g/dL (12.0-16.0); Mean Corpuscular HGB Conc 33 g/dL (31-36); Mean Corpuscular Hemoglobin 30 pg (27-31); Mean Corpuscular Volume 91 fL (80-97); Mean Platelet Volume 7.2 fL (7.4-10.4); Platelet Count 471 10^3/uL (150-450); Red Blood Count 3.53 10^6 /uL (3.70-4.87); Red Cell Distribution Width 17 % (10-15); White Blood Count 8.3 10^3/uL (3.5-10.8)
[2020-12-31 05:36] LABS: INR 1.27 (0.86-1.15)
[2020-12-31 05:53] LABS: Calcium 9.1 mg/dL (8.6-10.3); Potassium 3.8 mmol/L (3.5-5.0)
[2020-12-31] MEDS: Mometasone/Formoter 200/5 MDI INH SCH ×2 (07:09→20:41)
[2020-12-31] MEDS: Fluticasone NASAL SPRAY 50MCG 16 gm SPRAY BTL INTRANASAL SCH (08:12)
[2020-12-31] MEDS: Potassium Chlor 20 meq TAB.ER PO SCH (08:13)
[2020-12-31] MEDS ORDERED: Flunisolide NASAL (NF) 1 SPRAY NASAL.SPR BOTH NARES SCH (09:00)
[2020-12-31] MEDS ORDERED: Lactated Ringers 1000 ml BAG 1,000 ML IV SCH (12:00)
[2020-12-31] MEDS ORDERED: PEG 3000 GI LAVAGE 1 GALLON PO ONE (16:00)
[2020-12-31] MEDS: Iron Sucrose 200 MG in NS 0.9% 100 ml BAG 100 ML IVPB SCH (17:38)
[2021-01-01] MEDS ORDERED: PEG 3000 GI LAVAGE 1 GALLON PO ONE (05:00)
[2021-01-01] MEDS: Mometasone/Formoter 200/5 MDI INH SCH ×2 (07:41→20:27)
[2021-01-01 07:43] LABS: Hematocrit 30 % (35-47); Hemoglobin 9.9 g/dL (12.0-16.0); Mean Corpuscular HGB Conc 33 g/dL (31-36); Mean Corpuscular Hemoglobin 30 pg (27-31); Mean Corpuscular Volume 91 fL (80-97); Mean Platelet Volume 7.2 fL (7.4-10.4); Platelet Count 439 10^3/uL (150-450); Red Blood Count 3.34 10^6 /uL (3.70-4.87); Red Cell Distribution Width 17 % (10-15); White Blood Count 6.2 10^3/uL (3.5-10.8)
[2021-01-01 08:00] LABS: Calcium 8.8 mg/dL (8.6-10.3); Potassium 3.5 mmol/L (3.5-5.0)
[2021-01-01] MEDS ORDERED: Midazolam 10 mg/10 ml VIAL 1 mg/ml 10 ml VIAL (10 mg) ONE (08:19)
[2021-01-01] MEDS ORDERED: fentaNYL 100 mcg/2 ml 50 MCG/ML VIAL ONE (08:19)
[2021-01-01] MEDS: Potassium Chlor 20 meq TAB.ER PO SCH (09:26)
[2021-01-01] MEDS: Fluticasone NASAL SPRAY 50MCG 16 gm SPRAY BTL INTRANASAL SCH (09:26)
[2021-01-01] MEDS: Iron Sucrose 200 MG in NS 0.9% 100 ml BAG 100 ML IVPB SCH (11:09)
[2021-01-01 12:44] LABS: C Reactive Protein 25.54 mg/L (<8.01)
[2021-01-01 16:33] LABS: C Reactive Protein 17.43 mg/L (<8.01)
[2021-01-02 06:46] LABS: Hematocrit 26 % (35-47); Hemoglobin 8.7 g/dL (12.0-16.0); Mean Corpuscular HGB Conc 34 g/dL (31-36); Mean Corpuscular Hemoglobin 30 pg (27-31); Mean Corpuscular Volume 90 fL (80-97); Mean Platelet Volume 7.3 fL (7.4-10.4); Platelet Count 336 10^3/uL (150-450); Red Cell Distribution Width 17 % (10-15); White Blood Count 4.5 10^3/uL (3.5-10.8)
[2021-01-02 07:04] LABS: C Reactive Protein 23.66 mg/L (<8.01); Calcium 8.2 mg/dL (8.6-10.3); Potassium 3.5 mmol/L (3.5-5.0)
[2021-01-02] MEDS: Mometasone/Formoter 200/5 MDI INH SCH ×2 (07:20→20:44)
[2021-01-02] MEDS ORDERED: Gadoteridol (CONTRAST) 279.3 MG/ML 10 ML IV ONE (08:03)
[2021-01-02] MEDS ORDERED: Iron Sucrose 200 MG in NS 0.9% 100 ml BAG 100 ML IVPB ONE (09:00)
[2021-01-02] MEDS: Potassium Chlor 20 meq TAB.ER PO SCH (12:35)
[2021-01-02] MEDS: Fluticasone NASAL SPRAY 50MCG 16 gm SPRAY BTL INTRANASAL SCH (17:23)
[2021-01-03 06:42] LABS: ABS Basophils 0.1 10^3/ul (0-0.2); ABS Eosinophils 0.3 10^3/ul (0-0.6); ABS Lymphocytes 0.9 10^3/ul (1.0-4.8); ABS Monocytes 0.8 10^3/ul (0-0.8); ABS Neutrophils 3.8 10^3/ul (1.5-7.7); Eosinophil % 4.8 %; Hematocrit 26 % (35-47); Hemoglobin 8.8 g/dL (12.0-16.0); Lymphocyte % 15.8 %; Mean Corpuscular HGB Conc 33 g/dL (31-36); Mean Corpuscular Hemoglobin 30 pg (27-31); Mean Corpuscular Volume 90 fL (80-97); Mean Platelet Volume 7.3 fL (7.4-10.4); Nucleated Red Blood Cells % 0.1; Platelet Count 333 10^3/uL (150-450); Red Blood Count 2.94 10^6 /uL (3.70-4.87); Red Cell Distribution Width 17 % (10-15); White Blood Count 5.9 10^3/uL (3.5-10.8)
[2021-01-03 06:54] LABS: Calcium 8.4 mg/dL (8.6-10.3); Potassium 3.1 mmol/L (3.5-5.0)
[2021-01-03] MEDS: Mometasone/Formoter 200/5 MDI INH SCH (07:39)
[2021-01-03] MEDS: Potassium Chlor 20 meq TAB.ER PO SCH (08:29)
[2021-01-03] MEDS ORDERED: Potassium Chlor 20 meq TAB.ER PO ONE (08:53)
[2021-01-03] MEDS ORDERED: Iron Sucrose 200 MG in NS 0.9% 100 ml BAG 100 ML IVPB ONE (09:00)
[2021-01-03 09:28] LABS: Magnesium 1.8 mg/dL (1.9-2.7)
[2021-01-03] MEDS ORDERED: Magnesium Sulfate 2 gm BAG 2 GM/50 ML BAG IVPB ONE (09:35)
[2021-01-03] MEDS: Fluticasone NASAL SPRAY 50MCG 16 gm SPRAY BTL INTRANASAL SCH (10:15)
[2021-01-03] MEDS: KCL 20 MEQ/100 ML IVPREMIX 20 MEQ/100 ML BAG IV SCH ×2 (11:32→13:42)
[2021-01-03 15:10] VITALS: BP 119/72
== END 2021-01-03 17:46 | disposition home or self-care (01) | DRG 386 ==
LOC: ED 11:52 → MEDTELE 11:52 → SUATTDRO 17:30 → MEDTELE 19:48 → SUATTDRO 01-01 11:00
PROVIDERS: ADMIT Internal Medicine; ATTEND Internal Medicine

== ENCOUNTER 2021-01-07 12:02 | Inpatient (IN) ==
[2021-01-07 14:20] LABS: ABS Basophils 0.1 10^3/ul (0-0.2); ABS Eosinophils 0.1 10^3/ul (0-0.6); ABS Lymphocytes 0.9 10^3/ul (1.0-4.8); ABS Monocytes 0.9 10^3/ul (0-0.8); ABS Neutrophils 9.2 10^3/ul (1.5-7.7); Eosinophil % 0.5 %; Hematocrit 36 % (35-47); Hemoglobin 11.8 g/dL (12.0-16.0); Lymphocyte % 8.3 %; Mean Corpuscular HGB Conc 33 g/dL (31-36); Mean Corpuscular Hemoglobin 30 pg (27-31); Mean Corpuscular Volume 92 fL (80-97); Mean Platelet Volume 7.7 fL (7.4-10.4); Nucleated Red Blood Cells % 0.1; Platelet Count 473 10^3/uL (150-450); Red Blood Count 3.94 10^6 /uL (3.70-4.87); Red Cell Distribution Width 18 % (10-15); White Blood Count 11.1 10^3/uL (3.5-10.8)
[2021-01-07 14:27] LABS: INR 1.12 (0.86-1.15)
[2021-01-07 14:37] LABS: ALT 6 U/L (7-52); Albumin 3.7 g/dL (3.2-5.2); Albumin/Globulin Ratio 1.2 (1-3); Alkaline Phosphatase 76 U/L (35-149); Blood Urea Nitrogen 11 mg/dL (6-24); CO2 Carbon Dioxide 22 mmol/L (22-32); Calcium 9.9 mg/dL (8.6-10.3); Chloride 101 mmol/L (101-111); Creatine Kinase 29 U/L (10-223); Globulin 3.1 g/dL (2-4); Glucose 115 mg/dL (70-100); Magnesium 2.2 mg/dL (1.9-2.7); Sodium 132 mmol/L (135-145); Total Protein 6.8 g/dL (6.4-8.9)
[2021-01-07 14:39] LABS: Troponin I 0.04 ng/mL (<0.03)
[2021-01-07] MEDS ORDERED: Lactated Ringers 1000 ml BAG 1,000 ML IV ONE (15:47)
[2021-01-07 16:06] LABS: Anion Gap 9 mmol/L (2-11); Potassium 4.9 mmol/L (3.5-5.0)
[2021-01-07 16:07] LABS: AST 27 U/L (13-39)
[2021-01-07 17:15] LABS: Urine Appearance Cloudy; Urine Bilirubin Negative (Negative); Urine Blood Negative (Negative); Urine Color Yellow; Urine Glucose Negative (Negative); Urine Ketones Negative (Negative); Urine Nitrite Negative (Negative); Urine Protein Negative (Negative); Urine Specific Gravity 1.019 (1.002-1.030); Urine Urobilinogen Negative (Negative)
[2021-01-07] MEDS ORDERED: Iodixanol (CONTRAST) 320 MG/ML 100 ML SDV IV ONE (17:44)
[2021-01-07 17:55] LABS: Troponin I 0.04 ng/mL (<0.03)
[2021-01-07] MEDS ORDERED: Ondansetron 4 mg VIAL 2 MG/ML 2 ml VIAL IV ONE (17:58)
[2021-01-08 06:14] LABS: Rapid COVID-19 Molecular Undetected (Undetected)
[2021-01-08] MEDS: Mometasone/Formoter 200/5 MDI INH SCH ×2 (08:56→19:20)
[2021-01-08] MEDS: Pantoprazole VIAL 40 MG VIAL IV SCH ×2 (10:13→22:20)
[2021-01-08] MEDS: Lactated Ringers 1000 ml BAG 1,000 ML IV SCH (10:42)
[2021-01-08] MEDS: Metoprolol Tartrate 5 mg VIAL 5 ml VIAL (1 mg/ml) IV PRN (12:52)
[2021-01-08] MEDS ORDERED: Acetaminophen IV 1 GM/100ML 100 ML IV PRN (13:01)
[2021-01-08 13:07] LABS: Troponin I 0.06 ng/mL (<0.03)
[2021-01-08] MEDS ORDERED: Lidocaine 2% JELLY 6 ML TOPICAL ONE ×2 (14:28→15:00)
[2021-01-08] MEDS ORDERED: Ondansetron 4 mg VIAL 2 MG/ML 2 ml VIAL IV PRN ×2 (16:12→19:47)
[2021-01-08] MEDS ORDERED: fentaNYL 100 mcg/2 ml 50 MCG/ML VIAL IV PRN ×2 (16:12→19:47)
[2021-01-08] MEDS ORDERED: Naloxone 0.4 mg VIAL 0.4 mg/ml 1 ml VIAL IV PRN ×2 (16:12→19:47)
[2021-01-08] MEDS ORDERED: DiMENhydriNATE IV 50 mg/ml 1 ml VIAL IV PUSH PRN ×2 (16:12→19:47)
[2021-01-08 16:27] LABS: Troponin I 0.06 ng/mL (<0.03)
[2021-01-08 16:42] LABS: PCO2 Arterial 32 mmHg (35-45); PO2 Arterial 85 mmHg (80-100)
[2021-01-08] MEDS ORDERED: fentaNYL 100 mcg/2 ml 50 MCG/ML VIAL ONE ×2 (17:37→19:50)
[2021-01-08] MEDS ORDERED: Midazolam 2 mg/2 ml VIAL 1 mg/ml 2 ml VIAL (2 mg) ONE (17:37)
[2021-01-08] MEDS ORDERED: Diltiazem IV BAG D5W Premix 125 MG/125 ML BAG IV SCH (18:00)
[2021-01-08] MEDS ORDERED: Ertapenem 1 GM in NS 0.9% 50 ML IVPB SCH (18:00)
[2021-01-08] MEDS ORDERED: Diltiazem (ADVAN VIAL) 100 MG/100 ML ADDV.BAG IV SCH (18:00)
[2021-01-08] MEDS ORDERED: Bupivacaine 0.25% EPI 200,000 30 ML SDV ONE (18:06)
[2021-01-08] MEDS ORDERED: Heparin DRIP 25,000 UNITS BAG 25,000 UNITS/500 ML BAG IV SCH (18:15)
[2021-01-08] MEDS ORDERED: DILTIAZEM IV SCH (19:00)
[2021-01-08] MEDS ORDERED: [UNRECOGNIZED DRUG - OTHER] IV SCH (19:00)
[2021-01-08] MEDS ORDERED: Heparin 5000 UNITS/ML 1 mL VIAL IV SCH (19:00)
[2021-01-09] MEDS: Metoprolol Tartrate 5 mg VIAL 5 ml VIAL (1 mg/ml) IV PRN ×3 (00:37→15:44)
[2021-01-09] MEDS ORDERED: HYDROmorphone 0.5 MG/0.5 ML SYRINGE IV PRN (03:18)
[2021-01-09] MEDS ORDERED: Acetaminophen IV 1 GM/100ML 100 ML IV SCH (04:00)
[2021-01-09 04:46] LABS: ABS Basophils 0.1 10^3/ul (0-0.2); ABS Lymphocytes 0.3 10^3/ul (1.0-4.8); ABS Monocytes 0.7 10^3/ul (0-0.8); ABS Neutrophils 19.4 10^3/ul (1.5-7.7); Hematocrit 35 % (35-47); Hemoglobin 11.4 g/dL (12.0-16.0); Lymphocyte % 1.4 %; Mean Corpuscular HGB Conc 32 g/dL (31-36); Mean Corpuscular Hemoglobin 29 pg (27-31); Mean Corpuscular Volume 90 fL (80-97); Mean Platelet Volume 7.1 fL (7.4-10.4); Platelet Count 450 10^3/uL (150-450); Red Blood Count 3.89 10^6 /uL (3.70-4.87); Red Cell Distribution Width 19 % (10-15); White Blood Count 20.5 10^3/uL (3.5-10.8)
[2021-01-09 05:09] LABS: Anion Gap 12 mmol/L (2-11); Blood Urea Nitrogen 13 mg/dL (6-24); CO2 Carbon Dioxide 21 mmol/L (22-32); Calcium 8.7 mg/dL (8.6-10.3); Chloride 98 mmol/L (101-111); Glucose 94 mg/dL (70-100); Potassium 4.3 mmol/L (3.5-5.0); Sodium 131 mmol/L (135-145)
[2021-01-09 05:17] LABS: Troponin I 0.04 ng/mL (<0.03)
[2021-01-09] MEDS: Lactated Ringers 1000 ml BAG 1,000 ML IV SCH ×2 (07:04→16:59)
[2021-01-09] MEDS: Pantoprazole VIAL 40 MG VIAL IV SCH ×2 (07:50→20:45)
[2021-01-09] MEDS: Mometasone/Formoter 200/5 MDI INH SCH (07:57)
[2021-01-09] MEDS ORDERED: Heparin DRIP 25,000 UNITS BAG 25,000 UNITS/500 ML BAG IV SCH (11:15)
[2021-01-09 11:16] LABS: Urine Appearance Clear; Urine Bilirubin Negative (Negative); Urine Blood 3+ (Negative); Urine Color Yellow; Urine Glucose Negative (Negative); Urine Ketones 2+ (Negative); Urine Nitrite Negative (Negative); Urine Protein 1+(30 mg/dL) (Negative); Urine Specific Gravity 1.029 (1.002-1.030); Urine Urobilinogen Negative (Negative)
[2021-01-09 11:28] LABS: Urine Bacteria 1+ (Absent); Urine Red Blood Cell 3+(>10/hpf) (Absent); Urine Squamous Epithelial Cell Present (Absent); Urine White Blood Cell 2+(11-20/hpf) (Absent)
[2021-01-09 11:39] LABS: ABS Lymphocytes 0.6 10^3/ul (1.0-4.8); ABS Monocytes 0.8 10^3/ul (0-0.8); ABS Neutrophils 13.5 10^3/ul (1.5-7.7); Hematocrit 32 % (35-47); Hemoglobin 10.4 g/dL (12.0-16.0); Lymphocyte % 4.2 %; Mean Corpuscular HGB Conc 33 g/dL (31-36); Mean Corpuscular Hemoglobin 30 pg (27-31); Mean Corpuscular Volume 91 fL (80-97); Mean Platelet Volume 7.4 fL (7.4-10.4); Platelet Count 423 10^3/uL (150-450); Red Blood Count 3.52 10^6 /uL (3.70-4.87); Red Cell Distribution Width 19 % (10-15); White Blood Count 14.9 10^3/uL (3.5-10.8)
[2021-01-09] MEDS ORDERED: Heparin 5000 UNITS/ML 1 mL VIAL IV SCH (12:00)
[2021-01-09 12:09] LABS: Troponin I 0.04 ng/mL (<0.03)
[2021-01-09] MEDS: Heparin 5000 UNITS/ML 1 mL VIAL SUBCUT SCH (13:13)
[2021-01-09] MEDS: Acetaminophen IV 1 GM/100ML 100 ML IV SCH ×2 (13:15→20:46)
[2021-01-10] MEDS: Mometasone/Formoter 200/5 MDI INH SCH ×3 (00:38→20:33)
[2021-01-10] MEDS: Heparin 5000 UNITS/ML 1 mL VIAL SUBCUT SCH ×2 (00:39→05:03)
[2021-01-10] MEDS: Lactated Ringers 1000 ml BAG 1,000 ML IV SCH ×3 (01:36→19:27)
[2021-01-10] MEDS: Acetaminophen IV 1 GM/100ML 100 ML IV SCH ×3 (05:04→20:49)
[2021-01-10 05:37] LABS: ABS Eosinophils 0.3 10^3/ul (0-0.6); ABS Lymphocytes 0.7 10^3/ul (1.0-4.8); ABS Monocytes 0.8 10^3/ul (0-0.8); ABS Neutrophils 7.3 10^3/ul (1.5-7.7); Eosinophil % 2.9 %; Hematocrit 32 % (35-47); Hemoglobin 10.3 g/dL (12.0-16.0); Lymphocyte % 7.7 %; Mean Corpuscular HGB Conc 33 g/dL (31-36); Mean Corpuscular Hemoglobin 30 pg (27-31); Mean Corpuscular Volume 91 fL (80-97); Mean Platelet Volume 7.3 fL (7.4-10.4); Platelet Count 345 10^3/uL (150-450); Red Blood Count 3.48 10^6 /uL (3.70-4.87); Red Cell Distribution Width 19 % (10-15); White Blood Count 9.1 10^3/uL (3.5-10.8)
[2021-01-10] MEDS: Pantoprazole VIAL 40 MG VIAL IV SCH (09:13)
[2021-01-10] MEDS ORDERED: Pantoprazole VIAL 40 MG VIAL IV ONE (10:51)
[2021-01-10] MEDS ORDERED: Enoxaparin 40 MG/0.4 ML SYR SUBCUT SCH (11:00)
[2021-01-10] MEDS: Enoxaparin 40 MG/0.4 ML SYR SUBCUT SCH (17:43)
[2021-01-10] MEDS ORDERED: D5W 1/2 NS KCl 20 meq 1000 ml 1,000 ML IV SCH (20:00)
[2021-01-11] MEDS: Levothyroxine 100 MCG/5 ML VIAL IV SCH (05:53)
[2021-01-11] MEDS: Acetaminophen IV 1 GM/100ML 100 ML IV SCH (05:55)
[2021-01-11 07:09] LABS: ABS Eosinophils 0.3 10^3/ul (0-0.6); ABS Lymphocytes 0.3 10^3/ul (1.0-4.8); ABS Monocytes 0.4 10^3/ul (0-0.8); ABS Neutrophils 6.6 10^3/ul (1.5-7.7); Eosinophil % 3.3 %; Hematocrit 31 % (35-47); Hemoglobin 10.2 g/dL (12.0-16.0); Lymphocyte % 4.2 %; Mean Corpuscular HGB Conc 33 g/dL (31-36); Mean Corpuscular Hemoglobin 30 pg (27-31); Mean Corpuscular Volume 91 fL (80-97); Mean Platelet Volume 7.5 fL (7.4-10.4); Platelet Count 336 10^3/uL (150-450); Red Blood Count 3.37 10^6 /uL (3.70-4.87); Red Cell Distribution Width 19 % (10-15); White Blood Count 7.6 10^3/uL (3.5-10.8)
[2021-01-11 07:23] LABS: Potassium 3.7 mmol/L (3.5-5.0)
[2021-01-11] MEDS: Mometasone/Formoter 200/5 MDI INH SCH ×2 (08:18→19:15)
[2021-01-11] MEDS ORDERED: HYDROcodone/ACETAMIN 5/325 mg TAB PO PRN (10:00)
[2021-01-11] MEDS: Metoprolol Tartrate 5 mg VIAL 5 ml VIAL (1 mg/ml) IV PRN (10:31)
[2021-01-11] MEDS: D5NS 0.9% 1000 ml BAG 1,000 ML IV SCH (13:10)
[2021-01-11] MEDS: Pantoprazole VIAL 40 MG VIAL IV SCH (13:17)
[2021-01-11] MEDS: Enoxaparin 40 MG/0.4 ML SYR SUBCUT SCH (18:37)
[2021-01-12 05:52] LABS: ABS Eosinophils 0.5 10^3/ul (0-0.6); ABS Lymphocytes 0.7 10^3/ul (1.0-4.8); ABS Monocytes 0.4 10^3/ul (0-0.8); ABS Neutrophils 3.6 10^3/ul (1.5-7.7); Eosinophil % 9.1 %; Hematocrit 28 % (35-47); Hemoglobin 9.3 g/dL (12.0-16.0); Lymphocyte % 13.1 %; Mean Corpuscular HGB Conc 33 g/dL (31-36); Mean Corpuscular Hemoglobin 30 pg (27-31); Mean Corpuscular Volume 90 fL (80-97); Mean Platelet Volume 7.3 fL (7.4-10.4); Nucleated Red Blood Cells % 0.1; Platelet Count 301 10^3/uL (150-450); Red Blood Count 3.13 10^6 /uL (3.70-4.87); Red Cell Distribution Width 19 % (10-15); White Blood Count 5.2 10^3/uL (3.5-10.8)
[2021-01-12] MEDS: Levothyroxine 100 MCG/5 ML VIAL IV SCH (05:56)
[2021-01-12 06:29] LABS: Calcium 7.5 mg/dL (8.6-10.3); Potassium 2.9 mmol/L (3.5-5.0)
[2021-01-12] MEDS ORDERED: Potassium Chlor 20 meq TAB.ER PO ONE (06:38)
[2021-01-12] MEDS: Mometasone/Formoter 200/5 MDI INH SCH ×2 (07:13→20:08)
[2021-01-12] MEDS: Potassium Chlor 20 meq TAB.ER PO SCH ×2 (09:33→22:41)
[2021-01-12] MEDS: D5NS 0.9% 1000 ml BAG 1,000 ML IV SCH (09:37)
[2021-01-12] MEDS: Pantoprazole VIAL 40 MG VIAL IV SCH (12:27)
[2021-01-12 12:53] LABS: Anion Gap 6 mmol/L (2-11); Blood Urea Nitrogen 15 mg/dL (6-24); CO2 Carbon Dioxide 24 mmol/L (22-32); Calcium 8.1 mg/dL (8.6-10.3); Chloride 102 mmol/L (101-111); Glucose 92 mg/dL (70-100); Magnesium 1.6 mg/dL (1.9-2.7); Phosphorus 1.8 mg/dL (2.5-5.0); Potassium 3.4 mmol/L (3.5-5.0); Sodium 132 mmol/L (135-145)
[2021-01-12] MEDS ORDERED: Magnesium Sulfate 2 gm BAG 2 GM/50 ML BAG IVPB ONE (13:40)
[2021-01-12] MEDS ORDERED: Potassium Phosphate IV 15 MMOLE in NS 0.9% 250 ml 250 ML IVPB ONE (14:00)
[2021-01-12] MEDS: Metoprolol Tartrate 5 mg VIAL 5 ml VIAL (1 mg/ml) IV PRN (14:20)
[2021-01-12] MEDS ORDERED: Metoprolol Tartrate 5 mg VIAL 5 ml VIAL (1 mg/ml) IV PRN (14:37)
[2021-01-12 14:43] LABS: % Iron Saturation 8 % (15-55); Iron 21 ug/dL (50-212); Total Iron Binding Capacity 272 mcg/dL (250-450); Transferrin 194 mg/dL (203-362); Unsaturated Iron Binding < 257 ug/dL
[2021-01-12 15:01] LABS: Ferritin 697.4 ng/mL (11-307)
[2021-01-12] MEDS: Iron Sucrose 200 MG in NS 0.9% 100 ml BAG 100 ML IVPB SCH (16:46)
[2021-01-12] MEDS: Enoxaparin 40 MG/0.4 ML SYR SUBCUT SCH (18:07)
[2021-01-13 05:43] LABS: ABS Eosinophils 0.4 10^3/ul (0-0.6); ABS Lymphocytes 0.9 10^3/ul (1.0-4.8); ABS Monocytes 0.4 10^3/ul (0-0.8); Eosinophil % 7.7 %; Hematocrit 28 % (35-47); Hemoglobin 9.1 g/dL (12.0-16.0); Mean Corpuscular HGB Conc 33 g/dL (31-36); Mean Corpuscular Hemoglobin 29 pg (27-31); Mean Corpuscular Volume 90 fL (80-97); Mean Platelet Volume 7.6 fL (7.4-10.4); Platelet Count 311 10^3/uL (150-450); Red Blood Count 3.11 10^6 /uL (3.70-4.87); Red Cell Distribution Width 20 % (10-15); White Blood Count 4.7 10^3/uL (3.5-10.8)
[2021-01-13 05:59] LABS: Calcium 7.3 mg/dL (8.6-10.3); Magnesium 2.1 mg/dL (1.9-2.7); Phosphorus 1.9 mg/dL (2.5-5.0)
[2021-01-13] MEDS ORDERED: Potassium Phosphate IV 15 MMOLE in NS 0.9% 250 ml 250 ML IVPB ONE (07:30)
[2021-01-13] MEDS ORDERED: Digoxin IV 0.5 MG/2 ML AMP (0.25 MG/ML) IV SLOW PU ONE (08:36)
[2021-01-13] MEDS: Potassium Chlor 20 meq TAB.ER PO SCH ×2 (09:52→23:02)
[2021-01-13] MEDS: Iron Sucrose 200 MG in NS 0.9% 100 ml BAG 100 ML IVPB SCH (09:54)
[2021-01-13] MEDS: Mometasone/Formoter 200/5 MDI INH SCH ×2 (10:46→19:56)
[2021-01-13] MEDS ORDERED: Lactated Ringers 500 ml BAG 500 ML IV ONE (10:50)
[2021-01-13] MEDS: Potassium & Sodium Phos 250 mg = 1 PACKET PO SCH ×2 (10:50→23:00)
[2021-01-13] MEDS ORDERED: Lactated Ringers 1000 ml BAG 500 ML IV ONE (11:45)
[2021-01-13] MEDS: D5NS 0.9% 1000 ml BAG 1,000 ML IV SCH (18:48)
[2021-01-14 05:29] LABS: Hematocrit 30 % (35-47); Hemoglobin 9.6 g/dL (12.0-16.0); Mean Corpuscular HGB Conc 32 g/dL (31-36); Mean Corpuscular Hemoglobin 30 pg (27-31); Mean Corpuscular Volume 93 fL (80-97); Mean Platelet Volume 7.5 fL (7.4-10.4); Platelet Count 288 10^3/uL (150-450); Red Blood Count 3.25 10^6 /uL (3.70-4.87); Red Cell Distribution Width 20 % (10-15); White Blood Count 4.9 10^3/uL (3.5-10.8)
[2021-01-14 05:41] LABS: Calcium 7.4 mg/dL (8.6-10.3); Magnesium 1.9 mg/dL (1.9-2.7); Potassium 4.2 mmol/L (3.5-5.0)
[2021-01-14 06:02] LABS: TSH Ultra Thyroid Stim Horm 14.15 mcIU/mL (0.34-5.60)
[2021-01-14 06:04] LABS: Free T4 0.77 ng/dL (0.61-1.12)
[2021-01-14 06:05] LABS: Free T3 2.1 pg/mL (2.5-3.9)
[2021-01-14] MEDS: Mometasone/Formoter 200/5 MDI INH SCH (07:04)
[2021-01-14] MEDS: Potassium Chlor 20 meq TAB.ER PO SCH (08:46)
[2021-01-14] MEDS: Potassium & Sodium Phos 250 mg = 1 PACKET PO SCH (08:52)
[2021-01-14 11:41] VITALS: BP 126/79
== END 2021-01-14 16:45 | disposition home or self-care (01) | DRG 330 ==
LOC: ED 12:02 → SUATTDRO 01-08 08:38 → SSU 01-08 08:38
PROVIDERS: ADMIT Internal Medicine; ATTEND Internal Medicine

== ENCOUNTER 2021-03-26 10:19 | Inpatient (IN) ==
[2021-03-26] MEDS ORDERED: Ondansetron 4 mg VIAL 2 MG/ML 2 ml VIAL IV ONE (11:09)
[2021-03-26] MEDS ORDERED: Lactated Ringers 1000 ml BAG 1,000 ML IV ONE (11:09)
[2021-03-26] MEDS ORDERED: Metoprolol Tartrate 5 mg VIAL 5 ml VIAL (1 mg/ml) IV ONE (11:11)
[2021-03-26] MEDS ORDERED: Pantoprazole VIAL 40 MG VIAL IV ONE (11:28)
[2021-03-26 11:34] LABS: Hematocrit 41 % (35-47); Hemoglobin 13.6 g/dL (12.0-16.0); Mean Corpuscular HGB Conc 33 g/dL (31-36); Mean Corpuscular Hemoglobin 30 pg (27-31); Mean Corpuscular Volume 92 fL (80-97); Red Blood Count 4.46 10^6 /uL (3.70-4.87); Red Cell Distribution Width 19 % (10-15); White Blood Count 9.9 10^3/uL (3.5-10.8)
[2021-03-26 11:39] LABS: INR 4.33 (0.86-1.15)
[2021-03-26 11:44] LABS: ALT 19 U/L (7-52); Albumin 3.5 g/dL (3.2-5.2); Albumin/Globulin Ratio 0.9 (1-3); Alkaline Phosphatase 253 U/L (35-149); Blood Urea Nitrogen 52 mg/dL (6-24); CO2 Carbon Dioxide 16 mmol/L (22-32); Calcium 9.5 mg/dL (8.6-10.3); Chloride 104 mmol/L (101-111); Globulin 3.7 g/dL (2-4); Glucose 105 mg/dL (70-100); Sodium 132 mmol/L (135-145); Total Protein 7.2 g/dL (6.4-8.9)
[2021-03-26 12:07] LABS: ABS Eosinophils 0.1 10^3/ul (0-0.6); ABS Monocytes 0.4 10^3/ul (0-0.8); ABS Neutrophils 8.3 10^3/ul (1.5-7.7); ABS Nucleated RBC 0.1 10^3/ul; Eosinophil % 1.2 %; Lymphocyte % 9.8 %; Nucleated Red Blood Cells % 1.2; Platelet Count 88 10^3/uL (150-450)
[2021-03-26 12:35] LABS: Anion Gap 12 mmol/L (2-11)
[2021-03-26] MEDS ORDERED: Iodixanol (CONTRAST) 320 MG/ML 100 ML SDV IV ONE (12:49)
[2021-03-26 13:11] LABS: Potassium Redraw 5.7 mmol/L (3.5-5.0)
[2021-03-26] MEDS ORDERED: Diltiazem IV push/loading dose 5 MG/ML 5 ML vial (25 mg) IV SLOW PU ONE ×2 (13:58→19:39)
[2021-03-26 14:58] LABS: Urine Appearance Turbid; Urine Bilirubin Negative (Negative); Urine Blood Negative (Negative); Urine Color Yellow; Urine Glucose Negative (Negative); Urine Ketones Trace (Negative); Urine Nitrite Negative (Negative); Urine Protein 1+(30 mg/dL) (Negative); Urine Specific Gravity 1.048 (1.002-1.030); Urine Urobilinogen Negative (Negative)
[2021-03-26 15:03] LABS: Urine Bacteria Absent (Absent); Urine Red Blood Cell Absent (Absent); Urine Uric Acid Crystals Present (Absent); Urine White Blood Cell Absent (Absent)
[2021-03-26] MEDS ORDERED: NS 0.9% 1000 ml BAG 1,000 ML IV ONE ×2 (17:10→18:49)
[2021-03-26] MEDS ORDERED: Ondansetron 4 mg VIAL 2 MG/ML 2 ml VIAL IV PRN (17:12)
[2021-03-26] MEDS ORDERED: Polyethylene Glycol 3350 17 GM PACKET PO PRN (17:26)
[2021-03-26] MEDS ORDERED: Senna TAB 8.6 mg TAB PO PRN (17:26)
[2021-03-26] MEDS ORDERED: NS 0.9% 1000 ml BAG 1,000 ML IV SCH (17:45)
[2021-03-26] MEDS: cefTRIAXone 1 gm/50 mL NS BAG 1 GM/50 ML BAG IVPB SCH (17:52)
[2021-03-26] MEDS: Lidocaine PATCH 5% PATCH TRANSDERM SCH (17:53)
[2021-03-26] MEDS ORDERED: Diltiazem IV BAG D5W Premix 125 MG/125 ML BAG IV SCH (18:00)
[2021-03-26] MEDS ORDERED: Sodium Polystyrene ORAL.SUSP 15 GM/60 ML BTL PO ONE (19:44)
[2021-03-26] MEDS: Lidocaine Patch REMOVE NOTE PATCH OFF SCH (22:03)
[2021-03-26] MEDS: Pantoprazole VIAL 40 MG VIAL IV SCH (22:17)
[2021-03-27] MEDS ORDERED: Digoxin IV 0.5 MG/2 ML AMP (0.25 MG/ML) IV SLOW PU ONE ×3 (00:48→03:05)
[2021-03-27 02:06] LABS: Hematocrit 33 % (35-47); Hemoglobin 11.1 g/dL (12.0-16.0); Mean Corpuscular HGB Conc 34 g/dL (31-36); Mean Corpuscular Hemoglobin 31 pg (27-31); Mean Corpuscular Volume 91 fL (80-97); Mean Platelet Volume 7.6 fL (7.4-10.4); Platelet Count 57 10^3/uL (150-450); Red Blood Count 3.64 10^6 /uL (3.70-4.87); Red Cell Distribution Width 19 % (10-15); White Blood Count 10.5 10^3/uL (3.5-10.8)
[2021-03-27] MEDS ORDERED: Metoprolol Tartrate 5 mg VIAL 5 ml VIAL (1 mg/ml) IV ONE (05:03)
[2021-03-27] MEDS: Cholecalciferol (VIT D3) 1,000 unit TAB PO SCH (08:16)
[2021-03-27] MEDS: Lidocaine PATCH 5% PATCH TRANSDERM SCH (08:16)
[2021-03-27] MEDS: Pantoprazole VIAL 40 MG VIAL IV SCH ×2 (08:17→21:56)
[2021-03-27] MEDS: Mometasone/Formoter 200/5 MDI INH SCH ×2 (08:25→19:59)
[2021-03-27 08:47] LABS: INR 3.36 (0.86-1.15)
[2021-03-27 08:50] LABS: Hematocrit 31 % (35-47); Hemoglobin 10.6 g/dL (12.0-16.0); Mean Corpuscular HGB Conc 34 g/dL (31-36); Mean Corpuscular Hemoglobin 31 pg (27-31); Mean Corpuscular Volume 92 fL (80-97); Mean Platelet Volume 7.6 fL (7.4-10.4); Platelet Count 51 10^3/uL (150-450); Red Blood Count 3.43 10^6 /uL (3.70-4.87); Red Cell Distribution Width 19 % (10-15); White Blood Count 10.3 10^3/uL (3.5-10.8)
[2021-03-27 08:56] LABS: Albumin/Globulin Ratio 1.2 (1-3); Globulin 2.6 g/dL (2-4); Potassium 3.8 mmol/L (3.5-5.0); Total Bilirubin 0.7 mg/dL (0.2-1.0); Total Protein 5.6 g/dL (6.4-8.9); eGFR CKD-EPI 41.2 (>60)
[2021-03-27 08:59] LABS: Fibrinogen 217.2 mg/dL (110.8-404.3)
[2021-03-27] MEDS ORDERED: Phytonadione Oral Solution 5 MG/25 ML UDC PO ONE (09:31)
[2021-03-27 09:36] LABS: TSH Ultra Thyroid Stim Horm 1.83 mcIU/mL (0.34-5.60)
[2021-03-27 09:38] LABS: Free T4 0.93 ng/dL (0.61-1.12)
[2021-03-27 09:56] LABS: ABS Eosinophils 0.1 10^3/ul (0-0.6); ABS Lymphocytes 0.7 10^3/ul (1.0-4.8); ABS Monocytes 0.5 10^3/ul (0-0.8); ABS Nucleated RBC 0.1 10^3/ul; Eosinophil % 0.8 %; Lymphocyte % 7.1 %; Nucleated Red Blood Cells % 0.5
[2021-03-27 11:14] LABS: Venous Bicarbonate HCO3 16.6 mmol/L (24-28)
[2021-03-27] MEDS: Fluticasone NASAL SPRAY 50MCG 16 gm SPRAY BTL INTRANASAL SCH (11:39)
[2021-03-27] MEDS: Metoprolol Tartrate 5 mg VIAL 5 ml VIAL (1 mg/ml) IV PRN (12:12)
[2021-03-27 14:11] LABS: Hematocrit 31 % (35-47); Hemoglobin 10.2 g/dL (12.0-16.0); Mean Corpuscular HGB Conc 33 g/dL (31-36); Mean Corpuscular Hemoglobin 30 pg (27-31); Mean Corpuscular Volume 92 fL (80-97); Red Blood Count 3.36 10^6 /uL (3.70-4.87); Red Cell Distribution Width 19 % (10-15); White Blood Count 10.4 10^3/uL (3.5-10.8)
[2021-03-27 14:12] LABS: ABS Eosinophils 0.1 10^3/ul (0-0.6); ABS Lymphocytes 0.8 10^3/ul (1.0-4.8); ABS Monocytes 0.5 10^3/ul (0-0.8); Eosinophil % 0.9 %; Lymphocyte % 7.3 %; Nucleated Red Blood Cells % 0.3; Platelet Count 49 10^3/uL (150-450)
[2021-03-27] MEDS: cefTRIAXone 1 gm/50 mL NS BAG 1 GM/50 ML BAG IVPB SCH (17:13)
[2021-03-27] MEDS: Lidocaine Patch REMOVE NOTE PATCH OFF SCH (21:56)
[2021-03-27 22:33] LABS: Hematocrit 30 % (35-47); Hemoglobin 10.2 g/dL (12.0-16.0); Mean Corpuscular HGB Conc 34 g/dL (31-36); Mean Corpuscular Hemoglobin 31 pg (27-31); Mean Corpuscular Volume 90 fL (80-97); Mean Platelet Volume 7.9 fL (7.4-10.4); Platelet Count 43 10^3/uL (150-450); Red Blood Count 3.33 10^6 /uL (3.70-4.87); Red Cell Distribution Width 19 % (10-15); White Blood Count 10.7 10^3/uL (3.5-10.8)
[2021-03-27 22:53] LABS: ABS Eosinophils 0.1 10^3/ul (0-0.6); ABS Lymphocytes 0.8 10^3/ul (1.0-4.8); ABS Monocytes 0.6 10^3/ul (0-0.8); ABS Neutrophils 9.2 10^3/ul (1.5-7.7); ABS Nucleated RBC 0.9 10^3/ul; Eosinophil % 0.7 %; Lymphocyte % 7.2 %; Nucleated Red Blood Cells % 7.9
[2021-03-28 07:44] LABS: Albumin 2.9 g/dL (3.2-5.2); Albumin/Globulin Ratio 1.1 (1-3); Calcium 8.1 mg/dL (8.6-10.3); Globulin 2.6 g/dL (2-4); Potassium 3.3 mmol/L (3.5-5.0); Total Bilirubin 0.6 mg/dL (0.2-1.0); Total Protein 5.5 g/dL (6.4-8.9); eGFR CKD-EPI 43.2 (>60)
[2021-03-28 07:59] LABS: Hematocrit 29 % (35-47); Hemoglobin 10.1 g/dL (12.0-16.0); Mean Corpuscular HGB Conc 34 g/dL (31-36); Mean Corpuscular Hemoglobin 31 pg (27-31); Mean Corpuscular Volume 91 fL (80-97); Red Blood Count 3.24 10^6 /uL (3.70-4.87); Red Cell Distribution Width 19 % (10-15); White Blood Count 11.3 10^3/uL (3.5-10.8)
[2021-03-28] MEDS ORDERED: Potassium Chlor 20 meq TAB.ER PO ONE (08:05)
[2021-03-28] MEDS: Cholecalciferol (VIT D3) 1,000 unit TAB PO SCH (08:10)
[2021-03-28] MEDS: Lidocaine PATCH 5% PATCH TRANSDERM SCH (08:10)
[2021-03-28] MEDS: Pantoprazole VIAL 40 MG VIAL IV SCH ×2 (08:11→20:04)
[2021-03-28 08:21] LABS: Mean Platelet Volume 9.1 fL (7.4-10.4); Platelet Count 59 10^3/uL (150-450)
[2021-03-28] MEDS ORDERED: Albuterol HFA INHALER 8 gm MDI INH PRN (08:30)
[2021-03-28] MEDS: Mometasone/Formoter 200/5 MDI INH SCH ×2 (08:45→20:10)
[2021-03-28] MEDS: Fluticasone NASAL SPRAY 50MCG 16 gm SPRAY BTL INTRANASAL SCH (10:47)
[2021-03-28] MEDS ORDERED: Albuterol/Ipratropium NEB.SOL (2.5/0.5 MG) 3 ML NEB.SOLN INH PRN (10:53)
[2021-03-28] MEDS: Metoprolol Tartrate 5 mg VIAL 5 ml VIAL (1 mg/ml) IV PRN (11:45)
[2021-03-28] MEDS ORDERED: NS 0.9% 1000 ml BAG 1,000 ML IV SCH (13:00)
[2021-03-28] MEDS ORDERED: Lactated Ringers 1000 ml BAG 1,000 ML IV ONE (13:01)
[2021-03-28 13:29] LABS: PCO2 Arterial 25 mmHg (35-45); PO2 Arterial 77 mmHg (80-100)
[2021-03-28] MEDS ORDERED: Lactated Ringers 1000 ml BAG 1,000 ML IV SCH (17:00)
[2021-03-28] MEDS: cefTRIAXone 1 gm/50 mL NS BAG 1 GM/50 ML BAG IVPB SCH (17:46)
[2021-03-28] MEDS ORDERED: Piperacillin/Tazobac ADVAN 3.375 GM in NS 0.9% 100 ml BAG 100 ML IV ONE (17:47)
[2021-03-28] MEDS ORDERED: Zosyn per Pharmacy NOTE FOLLOW UP SCH (18:00)
[2021-03-28] MEDS: Azithromycin 500 mg/250 ml NS 500 MG/250 ML BAG IVPB SCH (20:28)
[2021-03-28] MEDS: Lidocaine Patch REMOVE NOTE PATCH OFF SCH (21:53)
[2021-03-28] MEDS: ZOSYN 3.375 GM Q8H per EXTENDED INFUSION IV SCH (22:25)
[2021-03-29] MEDS ORDERED: Metoprolol Tartrate 5 mg VIAL 5 ml VIAL (1 mg/ml) IV PRN (04:36)
[2021-03-29 06:16] LABS: ABS Monocytes 0.6 10^3/ul (0-0.8); ABS Neutrophils 10.2 10^3/ul (1.5-7.7); ABS Nucleated RBC 0.1 10^3/ul; Eosinophil % 0.3 %; Hematocrit 28 % (35-47); Hemoglobin 9.1 g/dL (12.0-16.0); Lymphocyte % 8.7 %; Mean Corpuscular HGB Conc 33 g/dL (31-36); Mean Corpuscular Hemoglobin 30 pg (27-31); Mean Corpuscular Volume 91 fL (80-97); Mean Platelet Volume 8.3 fL (7.4-10.4); Nucleated Red Blood Cells % 0.7; Platelet Count 38 10^3/uL (150-450); Red Blood Count 3.04 10^6 /uL (3.70-4.87); Red Cell Distribution Width 20 % (10-15); White Blood Count 11.9 10^3/uL (3.5-10.8)
[2021-03-29 06:32] LABS: Albumin 2.7 g/dL (3.2-5.2); Albumin/Globulin Ratio 1.1 (1-3); Globulin 2.4 g/dL (2-4); Magnesium 1.9 mg/dL (1.9-2.7); Potassium 3.8 mmol/L (3.5-5.0); Total Bilirubin 0.8 mg/dL (0.2-1.0); Total Protein 5.1 g/dL (6.4-8.9); eGFR CKD-EPI 39.3 (>60)
[2021-03-29] MEDS: ZOSYN 3.375 GM Q8H per EXTENDED INFUSION IV SCH ×2 (06:37→14:50)
[2021-03-29 07:15] LABS: Hepatitis C Antibody Negative (Negative)
[2021-03-29] MEDS: Mometasone/Formoter 200/5 MDI INH SCH ×2 (08:30→19:54)
[2021-03-29] MEDS: Fluticasone NASAL SPRAY 50MCG 16 gm SPRAY BTL INTRANASAL SCH (10:12)
[2021-03-29] MEDS: Pantoprazole VIAL 40 MG VIAL IV SCH ×2 (10:13→20:41)
[2021-03-29] MEDS: Lidocaine PATCH 5% PATCH TRANSDERM SCH (10:13)
[2021-03-29] MEDS: Cholecalciferol (VIT D3) 1,000 unit TAB PO SCH (14:39)
[2021-03-29] MEDS: Lidocaine Patch REMOVE NOTE PATCH OFF SCH (20:55)
[2021-03-29 21:57] LABS: Mean Platelet Volume 8.7 fL (7.4-10.4); Platelet Count 82 10^3/uL (150-450)
[2021-03-30] MEDS: Azithromycin 500 mg/250 ml NS 500 MG/250 ML BAG IVPB SCH ×2 (00:32→23:27)
[2021-03-30] MEDS: ZOSYN 3.375 GM Q8H per EXTENDED INFUSION IV SCH ×4 (05:23→18:56)
[2021-03-30 07:31] LABS: Hematocrit 25 % (35-47); Hemoglobin 8.3 g/dL (12.0-16.0); Mean Corpuscular HGB Conc 33 g/dL (31-36); Mean Corpuscular Hemoglobin 30 pg (27-31); Mean Corpuscular Volume 92 fL (80-97); Platelet Count 74 10^3/uL (150-450); Red Blood Count 2.75 10^6 /uL (3.70-4.87); Red Cell Distribution Width 19 % (10-15); White Blood Count 11.5 10^3/uL (3.5-10.8)
[2021-03-30 07:32] LABS: INR 1.4 (0.86-1.15)
[2021-03-30 07:36] LABS: Albumin 2.7 g/dL (3.2-5.2); Albumin/Globulin Ratio 1.1 (1-3); Globulin 2.5 g/dL (2-4); Potassium 3.1 mmol/L (3.5-5.0); Total Bilirubin 0.8 mg/dL (0.2-1.0); Total Protein 5.2 g/dL (6.4-8.9); eGFR CKD-EPI 33.2 (>60)
[2021-03-30] MEDS: Fluticasone NASAL SPRAY 50MCG 16 gm SPRAY BTL INTRANASAL SCH (08:24)
[2021-03-30] MEDS: Mometasone/Formoter 200/5 MDI INH SCH ×2 (08:26→19:47)
[2021-03-30] MEDS: Cholecalciferol (VIT D3) 1,000 unit TAB PO SCH (08:26)
[2021-03-30] MEDS: Lidocaine PATCH 5% PATCH TRANSDERM SCH (08:35)
[2021-03-30 08:41] LABS: ABS Eosinophils 0.1 10^3/ul (0-0.6); ABS Monocytes 0.5 10^3/ul (0-0.8); ABS Neutrophils 9.9 10^3/ul (1.5-7.7); Eosinophil % 0.9 %; Lymphocyte % 8.6 %; Nucleated Red Blood Cells % 0.2
[2021-03-30] MEDS: Pantoprazole VIAL 40 MG VIAL IV SCH ×2 (09:26→21:04)
[2021-03-30] MEDS: KCL 10 MEQ/50 ML IVPREMIX 10 MEQ/50 ML BAG IV SCH ×2 (09:38→10:38)
[2021-03-30 14:32] LABS: Hepatitis B Surface Antigen Nonreactive (Nonreactive)
[2021-03-30] MEDS ORDERED: fentaNYL 100 mcg/2 ml 50 MCG/ML VIAL ONE (15:59)
[2021-03-30] MEDS: Lidocaine Patch REMOVE NOTE PATCH OFF SCH (21:06)
[2021-03-31] MEDS: ZOSYN 3.375 GM Q8H per EXTENDED INFUSION IV SCH ×2 (01:53→11:34)
[2021-03-31 06:09] LABS: ABS Eosinophils 0.1 10^3/ul (0-0.6); ABS Monocytes 0.4 10^3/ul (0-0.8); ABS Neutrophils 9.5 10^3/ul (1.5-7.7); ABS Nucleated RBC 0.1 10^3/ul; Eosinophil % 0.6 %; Hematocrit 28 % (35-47); Hemoglobin 9.3 g/dL (12.0-16.0); Lymphocyte % 8.9 %; Mean Corpuscular HGB Conc 33 g/dL (31-36); Mean Corpuscular Hemoglobin 30 pg (27-31); Mean Corpuscular Volume 92 fL (80-97); Mean Platelet Volume 9.4 fL (7.4-10.4); Nucleated Red Blood Cells % 0.5; Platelet Count 65 10^3/uL (150-450); Red Blood Count 3.04 10^6 /uL (3.70-4.87); Red Cell Distribution Width 19 % (10-15); White Blood Count 10.9 10^3/uL (3.5-10.8)
[2021-03-31 06:23] LABS: Albumin 2.7 g/dL (3.2-5.2); Globulin 2.7 g/dL (2-4); Potassium 3.4 mmol/L (3.5-5.0); Total Protein 5.4 g/dL (6.4-8.9); eGFR CKD-EPI 26.2 (>60)
[2021-03-31] MEDS ORDERED: Potassium Chloride LIQUID 20 MEQ/15 ML LIQUID PO ONE (06:48)
[2021-03-31] MEDS: Pantoprazole VIAL 40 MG VIAL IV SCH ×2 (08:15→20:47)
[2021-03-31] MEDS: Mometasone/Formoter 200/5 MDI INH SCH ×2 (08:18→20:29)
[2021-03-31] MEDS: Cholecalciferol (VIT D3) 1,000 unit TAB PO SCH ×2 (08:20→08:44)
[2021-03-31] MEDS: Fluticasone NASAL SPRAY 50MCG 16 gm SPRAY BTL INTRANASAL SCH (08:24)
[2021-03-31] MEDS: Lidocaine PATCH 5% PATCH TRANSDERM SCH ×2 (08:27→18:37)
[2021-03-31 17:07] LABS: Body Fluid Appearance Cloudy; Body Fluid Color Yellow; Body Fluid Source Pleural Fluid
[2021-03-31 17:46] LABS: Body Fluid Band 1 %; Body Fluid Mono 3 %; Body Fluid Other Cells 45; Body Fluid Total Cells Counted 200; Body Fluid WBC 1516 /mcL
[2021-03-31] MEDS: Lidocaine Patch REMOVE NOTE PATCH OFF SCH (21:41)
[2021-03-31] MEDS ORDERED: ZOSYN 3.375 GM Q12H per EXTENDED INFUSION IV SCH (23:00)
[2021-03-31 23:30] LABS: IgG Immunoblot Positive (Negative); IgM Immunoblot Positive (Negative)
[2021-04-01 06:30] LABS: ABS Eosinophils 0.1 10^3/ul (0-0.6); ABS Lymphocytes 1.2 10^3/ul (1.0-4.8); ABS Monocytes 0.4 10^3/ul (0-0.8); ABS Neutrophils 8.6 10^3/ul (1.5-7.7); ABS Nucleated RBC 0.1 10^3/ul; Eosinophil % 0.7 %; Hematocrit 30 % (35-47); Hemoglobin 9.7 g/dL (12.0-16.0); Lymphocyte % 11.4 %; Mean Corpuscular HGB Conc 33 g/dL (31-36); Mean Corpuscular Hemoglobin 30 pg (27-31); Mean Corpuscular Volume 92 fL (80-97); Nucleated Red Blood Cells % 1.1; Platelet Count 53 10^3/uL (150-450); Red Blood Count 3.19 10^6 /uL (3.70-4.87); Red Cell Distribution Width 20 % (10-15); White Blood Count 10.2 10^3/uL (3.5-10.8)
[2021-04-01 06:31] LABS: INR 1.44 (0.86-1.15)
[2021-04-01 06:51] LABS: Albumin 2.6 g/dL (3.2-5.2); Calcium 7.9 mg/dL (8.6-10.3); Globulin 2.6 g/dL (2-4); Magnesium 1.9 mg/dL (1.9-2.7); Potassium 2.9 mmol/L (3.5-5.0); Total Bilirubin 0.8 mg/dL (0.2-1.0); Total Protein 5.2 g/dL (6.4-8.9); eGFR CKD-EPI 23.5 (>60)
[2021-04-01] MEDS: Mometasone/Formoter 200/5 MDI INH SCH ×2 (08:26→19:43)
[2021-04-01] MEDS: Pantoprazole VIAL 40 MG VIAL IV SCH ×2 (08:41→20:11)
[2021-04-01] MEDS: Cholecalciferol (VIT D3) 1,000 unit TAB PO SCH (08:44)
[2021-04-01] MEDS: Fluticasone NASAL SPRAY 50MCG 16 gm SPRAY BTL INTRANASAL SCH (08:47)
[2021-04-01] MEDS: Lidocaine PATCH 5% PATCH TRANSDERM SCH (08:50)
[2021-04-01] MEDS: KCL 20 MEQ/100 ML IVPREMIX 20 MEQ/100 ML BAG IV SCH ×2 (15:10→19:35)
[2021-04-01] MEDS ORDERED: Bumetanide IV 0.25 MG/ML 4 ml VIAL (1 mg) SLOW PUSH ONE (15:36)
[2021-04-01] MEDS ORDERED: D5W 1000 ml BAG 1,000 ML IV SCH ×2 (17:00→19:39)
[2021-04-01] MEDS ORDERED: Potassium Chloride LIQUID 20 MEQ/15 ML LIQUID PO ONE (17:16)
[2021-04-01] MEDS: Albumin Human 25% 25 GM/100 ML BTL IV SCH ×4 (17:34→23:10)
[2021-04-01 19:55] LABS: Urine Appearance Turbid; Urine Bilirubin 1+ (Negative); Urine Blood 2+ (Negative); Urine Color Amber; Urine Glucose Negative (Negative); Urine Ketones Negative (Negative); Urine Nitrite Negative (Negative); Urine Protein 1+(30 mg/dL) (Negative); Urine Specific Gravity 1.016 (1.002-1.030); Urine Urobilinogen Negative (Negative)
[2021-04-01 20:13] LABS: Urine Bacteria Absent (Absent); Urine Red Blood Cell 2+(6-10/hpf) (Absent); Urine White Blood Cell 2+(11-20/hpf) (Absent)
[2021-04-01 20:20] LABS: Urine Osmo 383 mOsm/kg (150-1150)
[2021-04-01 21:21] LABS: Potassium 3.2 mmol/L (3.5-5.0); eGFR CKD-EPI 21.8 (>60)
[2021-04-01 21:25] LABS: Osmolality Serum 321 mOsm/kg (275-295)
[2021-04-01 22:14] LABS: Phosphorus 3.8 mg/dL (2.5-5.0)
[2021-04-01] MEDS: Lidocaine Patch REMOVE NOTE PATCH OFF SCH (22:33)
[2021-04-02 02:19] LABS: ABS Eosinophils 0.1 10^3/ul (0-0.6); ABS Lymphocytes 1.1 10^3/ul (1.0-4.8); ABS Monocytes 0.3 10^3/ul (0-0.8); ABS Neutrophils 5.4 10^3/ul (1.5-7.7); Eosinophil % 1.1 %; Hematocrit 22 % (35-47); Hemoglobin 7.2 g/dL (12.0-16.0); Lymphocyte % 15.3 %; Mean Corpuscular HGB Conc 33 g/dL (31-36); Mean Corpuscular Hemoglobin 31 pg (27-31); Mean Corpuscular Volume 92 fL (80-97); Mean Platelet Volume 9.4 fL (7.4-10.4); Nucleated Red Blood Cells % 0.6; Platelet Count 43 10^3/uL (150-450); Red Blood Count 2.34 10^6 /uL (3.70-4.87); Red Cell Distribution Width 20 % (10-15); White Blood Count 6.9 10^3/uL (3.5-10.8)
[2021-04-02 02:21] LABS: Albumin/Globulin Ratio 2.2 (1-3); Calcium 8.3 mg/dL (8.6-10.3); Globulin 1.8 g/dL (2-4); INR 1.58 (0.86-1.15); Magnesium 1.7 mg/dL (1.9-2.7); Potassium 2.9 mmol/L (3.5-5.0); Total Bilirubin 0.9 mg/dL (0.2-1.0); Total Protein 5.8 g/dL (6.4-8.9); eGFR CKD-EPI 21.7 (>60)
[2021-04-02] MEDS ORDERED: Potassium Chlor 20 meq TAB.ER PO ONE (02:45)
[2021-04-02] MEDS ORDERED: Magnesium Sulfate IV 3 GM in NS 0.9% 100 ml BAG 100 ML IVPB ONE (02:47)
[2021-04-02] MEDS: KCL 20 MEQ/100 ML IVPREMIX 20 MEQ/100 ML BAG IV SCH ×3 (05:46→12:31)
[2021-04-02] MEDS ORDERED: Potassium Chloride LIQUID 20 MEQ/15 ML LIQUID PO ONE (06:39)
[2021-04-02] MEDS ORDERED: KCL 10 MEQ/50 ML IVPREMIX 10 MEQ/50 ML BAG IV SCH (07:00)
[2021-04-02] MEDS ORDERED: D5W 1000 ml BAG 1,000 ML IV SCH (07:00)
[2021-04-02 07:09] LABS: PCO2 Arterial 22 mmHg (35-45); PO2 Arterial 93 mmHg (80-100)
[2021-04-02] MEDS: Mometasone/Formoter 200/5 MDI INH SCH ×2 (08:12→21:23)
[2021-04-02 08:15] LABS: Calcium 8.2 mg/dL (8.6-10.3); Magnesium 2.7 mg/dL (1.9-2.7); Potassium 3.6 mmol/L (3.5-5.0); eGFR CKD-EPI 22.9 (>60)
[2021-04-02] MEDS ORDERED: KCL 20 MEQ/100 ML IVPREMIX 0 MEQ/0 ML BAG ONE (08:47)
[2021-04-02] MEDS: Lidocaine PATCH 5% PATCH TRANSDERM SCH (08:54)
[2021-04-02] MEDS: Pantoprazole VIAL 40 MG VIAL IV SCH ×2 (08:56→19:50)
[2021-04-02] MEDS: Cholecalciferol (VIT D3) 1,000 unit TAB PO SCH (08:56)
[2021-04-02] MEDS: Fluticasone NASAL SPRAY 50MCG 16 gm SPRAY BTL INTRANASAL SCH (09:01)
[2021-04-02 09:22] LABS: ABS Eosinophils 0.1 10^3/ul (0-0.6); ABS Monocytes 0.3 10^3/ul (0-0.8); ABS Neutrophils 6.5 10^3/ul (1.5-7.7); ABS Nucleated RBC 0.1 10^3/ul; Eosinophil % 1.2 %; Hematocrit 21 % (35-47); Hemoglobin 6.9 g/dL (12.0-16.0); Lymphocyte % 12.1 %; Mean Corpuscular HGB Conc 33 g/dL (31-36); Mean Corpuscular Hemoglobin 31 pg (27-31); Mean Corpuscular Volume 92 fL (80-97); Mean Platelet Volume 9.6 fL (7.4-10.4); Nucleated Red Blood Cells % 0.9; Platelet Count 40 10^3/uL (150-450); Red Blood Count 2.27 10^6 /uL (3.70-4.87); Red Cell Distribution Width 20 % (10-15); White Blood Count 7.9 10^3/uL (3.5-10.8)
[2021-04-02 11:53] LABS: Glucose, BF 201 mg/dL
[2021-04-02 11:55] LABS: Fluid Type, Protein, Total PLEURAL; Total Protein, BF 1.9 g/dL
[2021-04-02 12:01] LABS: Albumin, BF 1.1 g/dL; Fluid Type, Albumin PLEURAL; Lactate Dehydrogenase, BF 440 U/L
[2021-04-02 12:21] LABS: Urine Squamous Epithelial Cell Present (Absent); Urine Yeast Present (Absent)
[2021-04-02] MEDS ORDERED: KCL 20 MEQ/100 ML IVPREMIX 20 MEQ/100 ML BAG ONE (12:27)
[2021-04-02] MEDS ORDERED: Bumetanide IV 0.25 MG/ML 4 ml VIAL (1 mg) SLOW PUSH ONE (12:46)
[2021-04-02] MEDS ORDERED: Sodium Bicarbonate 8.4% SYR 50 ml SYRINGE IV ONE (14:00)
[2021-04-02] MEDS ORDERED: Albumin Human 25% 25 GM/100 ML BTL IV ONE (14:00)
[2021-04-02 18:17] LABS: Anaplasma phagocytophilum Negative (Negative); B. miyamotoi PCR, B Negative (Negative); Babesia divergens/MO-1 Negative (Negative); Babesia ducani Negative (Negative); Ehrlichia chaffeensis Negative (Negative); Ehrlichia ewingii/canis Negative (Negative); Ehrlichia muris eauclairensis Negative (Negative)
[2021-04-02] MEDS: Lidocaine Patch REMOVE NOTE PATCH OFF SCH (20:02)
[2021-04-03] MEDS: Mometasone/Formoter 200/5 MDI INH SCH ×2 (07:25→19:42)
[2021-04-03 07:33] LABS: ABS Eosinophils 0.1 10^3/ul (0-0.6); ABS Lymphocytes 1.3 10^3/ul (1.0-4.8); ABS Monocytes 0.4 10^3/ul (0-0.8); ABS Neutrophils 8.8 10^3/ul (1.5-7.7); Eosinophil % 0.9 %; Hematocrit 23 % (35-47); Hemoglobin 7.7 g/dL (12.0-16.0); Lymphocyte % 11.9 %; Mean Corpuscular HGB Conc 34 g/dL (31-36); Mean Corpuscular Hemoglobin 31 pg (27-31); Mean Corpuscular Volume 92 fL (80-97); Mean Platelet Volume 9.6 fL (7.4-10.4); Nucleated Red Blood Cells % 0.2; Platelet Count 37 10^3/uL (150-450); Red Blood Count 2.48 10^6 /uL (3.70-4.87); Red Cell Distribution Width 20 % (10-15); White Blood Count 10.6 10^3/uL (3.5-10.8)
[2021-04-03 07:43] LABS: Albumin 3.7 g/dL (3.2-5.2); Albumin/Globulin Ratio 1.7 (1-3); Calcium 8.5 mg/dL (8.6-10.3); Globulin 2.2 g/dL (2-4); Magnesium 2.3 mg/dL (1.9-2.7); Potassium 3.8 mmol/L (3.5-5.0); Total Bilirubin 0.9 mg/dL (0.2-1.0); Total Protein 5.9 g/dL (6.4-8.9); eGFR CKD-EPI 19.9 (>60)
[2021-04-03] MEDS: Cholecalciferol (VIT D3) 1,000 unit TAB PO SCH (08:36)
[2021-04-03] MEDS: Pantoprazole VIAL 40 MG VIAL IV SCH (08:36)
[2021-04-03] MEDS: Lidocaine PATCH 5% PATCH TRANSDERM SCH (08:37)
[2021-04-03 08:49] LABS: INR 1.53 (0.86-1.15)
[2021-04-03 09:14] LABS: Anisocytosis 1+; Polychromasia 2+
[2021-04-03] MEDS: Fluticasone NASAL SPRAY 50MCG 16 gm SPRAY BTL INTRANASAL SCH (10:14)
[2021-04-03] MEDS ORDERED: Morphine 2 MG/ML SYRINGE IV PRN (10:57)
[2021-04-03 11:34] VITALS: BP 101/50
[2021-04-04] MEDS: Mometasone/Formoter 200/5 MDI INH SCH (07:29)
== END 2021-04-03 14:07 | disposition expired | DRG 377 ==
LOC: EDHOLD 10:19 → ED 10:19 → OBSVTOIN 17:16 → SUATTDRO 17:16 → MED 21:00
PROVIDERS: ADMIT Internal Medicine; ATTEND Student in an Organized Health Care Education/Training Program